=== PATIENT | male | born 1945 | race Caucasian/White ===

== ENCOUNTER 2017-10-02 19:57 | Inpatient (IN) | payer MEDICARE ==
--- NOTE | 2017-10-02 21:01 | ED ---
General Adult HPI - General Chief complaint: Altered Mental Status Stated complaint: Confusion Time Seen by Provider: 10/02/17 20:33 Source: patient, EMS, RN notes reviewed Mode of arrival: EMS Limitations: altered mental status - History of Present Illness Initial comments: Patient is a pleasant 72-year-old male presenting to the emergency Department with change in mental status. Patient is unclear where he is at or why he is here. Patient does admit that he feels somewhat confused. Patient denies any other complaints. No pain. Patient was seen earlier at [place] and evaluated. Chart was reviewed. There was concern for change in mental status. Patient had reported normal head CT and chest x-ray. It was also reported that labs and urinalysis were within normal limits. - Related Data Allergies Allergy/AdvReac Type Severity Reaction Status Date / Time No Known Allergies Allergy Verified 10/02/17 21:29 Review of Systems ROS Statement: Those systems with pertinent positive or pertinent negative responses have been documented in the HPI. ROS Other: All systems not noted in ROS Statement are negative. Constitutional: Denies: fever Eyes: Denies: eye pain ENT: Denies: ear pain Respiratory: Denies: cough Cardiovascular: Denies: chest pain Endocrine: Denies: fatigue Gastrointestinal: Denies: abdominal pain Genitourinary: Denies: urgency, dysuria, frequency Musculoskeletal: Denies: back pain Skin: Denies: rash Neurological: Reports: confusion. Denies: headache, weakness Past Medical History Past Medical History: No Reported History History of Any Multi-Drug Resistant Organisms: Unobtainable Past Surgical History: No Surgical Hx Reported Past Psychological History: Unable to Obtain Smoking Status: Current every day smoker Past Alcohol Use History: Unable to Obtain Past Drug Use History: Unable to Obtain General Exam Limitations: altered mental status General appearance: alert, in no apparent distress Head exam: Present: atraumatic Eye exam: Present: normal appearance, PERRL, EOMI. Absent: nystagmus ENT exam: Present: normal oropharynx Neck exam: Present: normal inspection Respiratory exam: Present: normal lung sounds bilaterally Cardiovascular Exam: Present: regular rate, normal rhythm GI/Abdominal exam: Present: distended (Suprapubic distention and firmness without tenderness) Extremities exam: Present: normal inspection Neurological exam: Present: alert Psychiatric exam: Present: normal affect, normal mood Skin exam: Present: rash (Erythematous rash bilateral inguinal region consistent with yeast infection) Course Vital Signs 10/02/17 10/02/17 10/02/17 20:04 20:11 21:29 Temperature 97.8 F 98.4 F 99.2 F Pulse Rate 69 66 70 Respiratory 18 16 20 Rate Blood Pressure 192/79 192/79 205/86 O2 Sat by Pulse 99 99 97 Oximetry - Reevaluation(s) Reevaluation #1: 10/02/17 22:02 Patient reevaluated. Suprapubic fullness resolved with Bhatt catheter. Patient has had approximately 1500 mL out at this time. Case was discussed in detail with Dr. dixon, who will admit for hospital call. Disposition Clinical Impression: Altered mental status, Urinary retention, Renal insufficiency Disposition: ADMITTED IP TO THIS HOSP Referrals: None,Stated [Primary Care Provider] - 1-2 days Decision Time: 22:03
--- NOTE | 2017-10-02 21:57 | XR ---
EXAMINATION TYPE: XR KUB DATE OF EXAM: 10/02/2017 COMPARISON: NONE HISTORY: Pain TECHNIQUE: Single supine KUB image of the abdomen is obtained FINDINGS: Small bowel demonstrates no evidence for dilatation or air fluid levels. Gas and fecal material is seen in non-distended colon. No convincing evidence for pneumoperitoneum. No unusual calcifications. The lung bases are clear. The osseous structures are intact. IMPRESSION: 1. Overall nonobstructive bowel gas pattern.
[2017-10-02] MEDS ORDERED: NALOXONE 0.4 MG/ML 1 ML VIAL IV PRN (22:05)
[2017-10-02] MEDS: SODIUM CHLORIDE 0.9% 1,000 ML IV SCH (23:02)
[2017-10-03 07:48] LABS: Basophils % (A) 0 %; Eosinophils # (A) 0.4 k/uL (0-0.7); Eosinophils % (A) 4 %; Lymphocytes # (A) 1.5 k/uL (1.0-4.8); Lymphocytes % (A) 16 %; MCH 28.7 pg (25.0-35.0); MCHC 31.9 g/dL (31.0-37.0); Mean Platelet Volume 7.2; Monocytes # (A) 0.6 k/uL (0-1.0); Monocytes % (A) 6 %; Neutrophils # (A) 7.2 k/uL (1.3-7.7); Neutrophils % (A) 73 %; Platelet Count 182 k/uL (150-450); RBC 4.89 m/uL (4.30-5.90); RDW 14.2 % (11.5-15.5); WBC 9.9 k/uL (3.8-10.6)
[2017-10-03] MEDS: SODIUM CHLORIDE 0.9% 1,000 ML IV SCH (07:52)
[2017-10-03 08:15] LABS: Calcium 8.8 mg/dL (8.4-10.2); Potassium 3.4 mmol/L (3.5-5.1)
[2017-10-03 14:16] VITALS: BMI 20.9
--- NOTE | 2017-10-03 16:44 | HP ---
HISTORY AND PHYSICAL DATE OF SERVICE: 10/03/17 PRESENT COMPLAINT: Confused. HISTORY OF PRESENTING COMPLAINT: This is a 72-year-old patient who was admitted from [facility]. The patient is hard of hearing, difficult to get much history. History is obtained from the nurse and other notes. Nurse did speak to patient's nephew. The patient apparently lives by himself, uses a cane to get about. The nephew brought him in as the patient was not able to take care of himself and apparently was not taking his medications. Basic workup at [place] labs including urinalysis was negative including CT scan of the brain. The patient is found to have urinary retention here and a Bhatt catheter was placed. The patient is tolerating his diet. Denies any pain. No fever was reported. Difficult to communicate with the patient. REVIEW OF SYSTEMS: Difficult to obtain. PAST MEDICAL HISTORY: Includes exposure to Agent Bee. The patient served in the [employer]. Gait has been more shuffling, unsteady. Increasing confusion per nephew. PAST SURGICAL HISTORY: Appendectomy, tonsillectomy. SOCIAL HISTORY: The patient lives by himself. Dirty dishes piled up in the sink. He served in the [employer] in [employer]. Smoking 1/2 a pack a day. Alcohol history unknown. FAMILY HISTORY: Father had Parkinson's disease. HOME MEDICATIONS: Not listed. ALLERGIES: Not known. PHYSICAL EXAMINATION: Vital signs on presentation, temperature 97.8, pulse 69, respiratory 18, blood pressure 19/79, repeat blood pressure today 126/72. Pulse ox 98% on room air. General appearance: Thin build, somewhat dishevelled. Eyes pupil's equal. Conjunctivae normal. HEENT external of nose and ears normal. Oral cavity normal. Neck JVD not raised. Mass not palpable. Respiratory effort normal. Lungs decreased breath sounds. Cardiovascular 1st and 2nd sounds normal. No edema. ABDOMEN: Soft, nontender. Liver and spleen not palpable. Bhatt catheter in place. Lymphatics: No lymph nose palpable in the neck and axilla. Psychiatry: Patient can answer some questions. Difficult to communicate. Neurological pupils equal. No facial asymmetry. Moving all 4 limbs. Musculoskeletal: Diffuse wasting of the muscles. INVESTIGATIONS: White count 9.9, sodium 149, potassium 3.4, BUN 37, creatinine 2.04. ASSESSMENT: 1. Acute renal failure, need to rule out a chronic component. 2. Hyponatremia, probably from free water deficit. 3. Hypokalemia. 4. Assess for dementia. 5. Acute urinary retention. Patient currently has a Bhatt catheter. 6. Chronic nicotine dependence patient is a smoker. PLAN: We will give patient IV fluids and recheck electrolytes in the morning. I will do a renal ultrasound. Will check patient's thyroid. service worker is involved. We will do a mini-mental status examination. Physical therapy is also seeing the patient. Patient will also check a B12 level. MMODL / IJN: [id number] /
[2017-10-03] MEDS: TAMSULOSIN 0.4 MG CAP.ER.24H PO SCH (17:49)
[2017-10-03] MEDS: LACTATED RINGERS 1,000 ML IV SCH (17:50)
[2017-10-03] MEDS: ENOXAPARIN 40 MG/0.4 ML SYRINGE SQ SCH (17:50)
[2017-10-03] MEDS: NICOTINE 14MG/24HR PATCH TRANSDERM SCH (17:50)
--- NOTE | 2017-10-03 18:46 | US ---
EXAMINATION TYPE: US kidneys/renal and bladder DATE OF EXAM: 10/03/2017 COMPARISON: NONE CLINICAL HISTORY: renal failure. FINDINGS: There is difficulty in visualizing the anatomy, due to overlying soft tissues. Right Kidney: 10.5 x 6.4 x 5.2 cm Left Kidney: 10.2 x 5.4 x 5.7 cm There is evidence of bilateral mild/moderate hydronephrosis. Further characterization can be provided with dedicated CT urogram, if clinically indicated. No focal right or left renal findings. The urinary bladder is collapsed around a Bhatt catheter. IMPRESSION: Bilateral hydronephrosis pattern.
[2017-10-04] MEDS: LACTATED RINGERS 1,000 ML IV SCH ×3 (02:22→20:45)
[2017-10-04 08:11] LABS: Albumin 3.3 g/dL (3.5-5.0); Calcium 8.8 mg/dL (8.4-10.2); Potassium 3.7 mmol/L (3.5-5.1); Total Bilirubin 0.9 mg/dL (0.2-1.3); Total Protein 5.7 g/dL (6.3-8.2)
[2017-10-04] MEDS: NICOTINE 14MG/24HR PATCH TRANSDERM SCH (08:27)
[2017-10-04] MEDS: ENOXAPARIN 40 MG/0.4 ML SYRINGE SQ SCH (08:27)
[2017-10-04] MEDS: TAMSULOSIN 0.4 MG CAP.ER.24H PO SCH (16:51)
--- NOTE | 2017-10-04 20:40 | PN ---
PROGRESS NOTE DATE OF SERVICE: 10/04/2017 PRESENTING COMPLAINT: Confused. INTERVAL HISTORY: This is a patient who was admitted with acute renal failure -- definitely appears to be an acute component -- and hypernatremia from free water deficit. Patient did poorly on the mini mental status exam, confirming that patient has underlying dementia. This morning patient's Bhatt catheter was discontinued and patient's post-void residual came back to about 900; and Bhatt catheter to be reinstated. Subsequently the patient has been tugging at the Bhatt and had some bleeding in the same. Otherwise patient has been tolerating a diet. One way to communicate with the patient is writing with him. REVIEW OF SYSTEMS: Difficult to obtain. CURRENT MEDICATIONS: Reviewed. They include Flomax. PHYSICAL EXAMINATION: Temperature 97.9, pulse 54, respiration 18, blood pressure 115/63, pulse ox 99% on room air. GENERAL APPEARANCE: Lying in bed, awake. EYES: Pupils equal. Conjunctivae normal. HEENT: External appearance of nose and ears normal. Oral cavity a bit dry. NECK: JVD not raised. Mass not palpable. RESPIRATORY: Effort normal. LUNGS: Decreased breath sounds. CARDIOVASCULAR: First and second sounds normal. No edema. ABDOMEN: Soft, non-tender. Liver and spleen not palpable. Bhatt catheter in place. DERMATOLOGICAL: Across the torso there are areas with irregular borders, scaly, slight erythema. INVESTIGATIONS: Sodium 146, potassium 3.7, BUN 29, creatinine 1.63. TSH normal. Abdominal ultrasound shows bilateral mild to moderate hydronephrosis. ASSESSMENT: 1. Acute renal failure component, probably from obstruction from prostate, with some improvement with hydration. 2. Urinary outflow obstruction, likely from benign prostatic hypertrophy. Patient has a high post-void residual. Will need a Bhatt catheter. Flomax was started yesterday. 3. Hypernatremia from free water deficit. 4. Moderate cognitive impairment. Patient did poorly on the mini mental status exam. 5. Chronic nicotine dependence. Patient is a cigarette smoker. 6. Possible acute delirium. Patient was slightly confused in the evening. This could be contributing from the Bhatt catheter. Also electrolyte abnormalities. 7. Bilateral hydronephrosis, probably from benign prostatic hypertrophy obstruction. PLAN: Will send off patient's UA and culture. Continue to hydrate the patient. For the patient's safety sake, will have a sitter placed and use delirium precautions. MMODL / IJN: [id number] /
[2017-10-04] MEDS: CLOTRIMAZOLE 1% CREAM 15 GM TUBE TOPICAL SCH (20:44)
[2017-10-05 01:11] LABS: Appearance,Urine Clear (Clear); Bilirubin,Urine Negative (Negative); Blood,Urine Large (Negative); Color,Urine Yellow; Glucose,Urine (UA) 3+ (Negative); Ketones,Urine Negative (Negative); Leukocyte Esterase,Urine Large (Negative); Mucus,Urine Rare /hpf; Nitrite,Urine Negative (Negative); Protein,Urine Trace (Negative); RBC,Urine >182 /hpf (0-5); Specific Gravity,Urine 1.011 (1.001-1.035); Urobilinogen,Urine <2.0 mg/dL (<2.0); WBC,Urine 29 /hpf (0-5)
[2017-10-05] MEDS: LACTATED RINGERS 1,000 ML IV SCH ×2 (07:06→19:08)
[2017-10-05 08:05] LABS: Calcium 8.5 mg/dL (8.4-10.2); Potassium 3.6 mmol/L (3.5-5.1)
[2017-10-05] MEDS: NICOTINE 14MG/24HR PATCH TRANSDERM SCH (08:06)
[2017-10-05] MEDS: ENOXAPARIN 40 MG/0.4 ML SYRINGE SQ SCH (08:06)
[2017-10-05] MEDS: CLOTRIMAZOLE 1% CREAM 15 GM TUBE TOPICAL SCH ×2 (08:10→19:17)
--- NOTE | 2017-10-05 09:31 | P.CON ---
Consult Note - . Consult date: 10/05/17 Assessment/Plan:: This consultation was performed per the request of Dr. Stanley regarding elongated thick deformed neglected nails of both feet. This patient is a 72-year-old white male who was admitted from [facility]. Patient is hard of hearing occult to get history from him. The history was obtained originally from the nurse and other notes. The nurse did speak to the patient's nephew. The patient apparently lives by himself, he uses a cane to get about. The nephew brought him in as the patient and reported that the patient was able to take care of him to self and apparently not taking his medications. Workup was performed at [facility] labs included a urinalysis which was negative computed tomography scan of the brain was found to have urinary retention and a Bhatt catheter was placed and the patient denies any pain reported Review of systems: Difficult to obtain Past medical history: Lids exposure to agent orange. The patient served in [employer] the patient's gait has been more shuffling and unsteady. There has been increasing in fusion reported by the patient's nephew. Past surgical history: Appendectomy and tonsillectomy or graft social history: The patient lives by himself and he served in the [employer] during the [place] conflict. The patient smokes a half a pack of cigarettes a day and alcohol history of bowel or graft family history: Father had Parkinson's disease or graft home medications: Not listed ALLERGIES: Not known Podiatric physical examination revealed very thick deformed elongated dystrophic neglected mycotic Denys involved nails involving the digits one through 5 bilaterally could not palpate good pedal pulses this state the dorsalis pedis and posterior tibial arteries were rated as quite weak. Capillary refill was less than 3 seconds to all digits of both feet The patient's skin with regard to color moisture temperature and texture was fairly within normal limits though and was dry and scaly. Weak pedal pulses though capillary refill was within normal limits Babinski and clonus signs were negative Range of motion ankle subtalar midtarsal and metatarsophalangeal joints are free and unrestricted Assessment: 1. Acute renal failure, need to rule out a chronic component 2. Hyponatremia, probably from free water deficit. 3. Hypokalemia line 4. Assessment for dementia 5. Acute urinary retention. The patient currently has a Bhatt catheter 6. Chronic nicotine dependence 7. Onychomycosis and neglected nails 1 through 5 bilateral feet This date I reduce the patient's nails 1 through 5 bilaterally burring was performed and a septic was applied Thank you for considering me in the care your patients
[2017-10-05] MEDS: TAMSULOSIN 0.4 MG CAP.ER.24H PO SCH (17:35)
--- NOTE | 2017-10-05 20:43 | PN ---
PROGRESS NOTE DATE OF SERVICE: 10/05/2017 PRESENTING COMPLAINT: Dementia. INTERVAL HISTORY: Patient admitted with acute renal failure, also found to have dementia and hyponatremia. The patient tolerating a diet. Lying in bed. REVIEW OF SYSTEMS: Difficult to do because of hard of hearing. CURRENT MEDICATIONS: Reviewed and include IV fluids. EXAMINATION: Temperature 98.1, pulse 66, respirations 16, blood pressure 133/59, pulse ox 96% on room air. GENERAL APPEARANCE: Lying in bed, comfortable. EYES: Pupils equal. Conjunctivae are normal. HEENT: External nose and ears normal. Oral cavity dry. NECK: JVD not raised. Mass not palpable. RESPIRATORY: Effort normal. LUNGS: Decreased breath sounds. CARDIOVASCULAR: First and second sounds normal. DERMATOLOGICAL: Evidence of scaly rash. INVESTIGATIONS: BUN 28, creatinine 1.26. ASSESSMENT: 1. Acute renal failure component, probably from obstruction from prostate with significant improvement with hydration. 2. Urinary outflow obstruction, likely from benign prostatic hypertrophy. The patient has a very high postvoid residual, will need a Bhatt catheter. 3. Hypernatremia from free water deficit. 4. Moderate cognitive impairment. The patient did poorly on mini-mental status exam. 5. Chronic nicotine dependence. Patient is a cigarette smoker. 6. Acute delirium, multifactorial, now doing better. 7. Bilateral hydronephrosis, probably from benign prostatic hypertrophy. 8. Acute urinary tract infection, possibly from Bhatt catheter. PLAN: Continue medication and treatment plan. Will give the patient a course of antibiotics, starting with ceftriaxone. Looking for placement. The patient continued to have a sitter currently for his safety, but overall getting better. MMODL / IJN: [id number] /
[2017-10-05] MEDS: cefTRIAXone IN SWFI 1,000 MG/10 ML SYRINGE IVP SCH (20:55)
[2017-10-06] MEDS ORDERED: LORazepam 2 MG/ML INJ IV PRN (03:23)
[2017-10-06] MEDS ORDERED: LORazepam 2 MG/ML INJ ONE (03:27)
[2017-10-06] MEDS: LACTATED RINGERS 1,000 ML IV SCH (07:01)
[2017-10-06 08:33] LABS: Basophils % (A) 0 %; Eosinophils # (A) 0.3 k/uL (0-0.7); Eosinophils % (A) 3 %; HCT 42.1 % (39.0-53.0); HGB 13.8 gm/dL (13.0-17.5); Lymphocytes # (A) 1.3 k/uL (1.0-4.8); Lymphocytes % (A) 17 %; MCH 29.3 pg (25.0-35.0); MCHC 32.8 g/dL (31.0-37.0); MCV 89.2 fL (80.0-100.0); Mean Platelet Volume 7.5; Monocytes # (A) 0.5 k/uL (0-1.0); Monocytes % (A) 6 %; Neutrophils # (A) 5.7 k/uL (1.3-7.7); Neutrophils % (A) 73 %; Platelet Count 165 k/uL (150-450); RBC 4.72 m/uL (4.30-5.90); RDW 13.8 % (11.5-15.5); WBC 7.9 k/uL (3.8-10.6)
[2017-10-06 08:53] LABS: Calcium 8.6 mg/dL (8.4-10.2); Potassium 3.3 mmol/L (3.5-5.1)
[2017-10-06] MEDS: CLOTRIMAZOLE 1% CREAM 15 GM TUBE TOPICAL SCH ×2 (09:51→21:05)
[2017-10-06] MEDS: NICOTINE 14MG/24HR PATCH TRANSDERM SCH (09:52)
[2017-10-06] MEDS: ENOXAPARIN 40 MG/0.4 ML SYRINGE SQ SCH ×2 (09:52→09:55)
[2017-10-06] MEDS ORDERED: Potassium Replacement Protocol 1 EACH MISC MISCELLANE PRN (14:51)
[2017-10-06] MEDS: POTASSIUM CHLORIDE ER 20 MEQ TAB.ER PO SCH ×2 (16:16→17:12)
[2017-10-06] MEDS: TAMSULOSIN 0.4 MG CAP.ER.24H PO SCH (18:12)
[2017-10-06] MEDS: cefTRIAXone IN SWFI 1,000 MG/10 ML SYRINGE IVP SCH (21:05)
--- NOTE | 2017-10-06 23:27 | PN ---
PROGRESS NOTE DATE OF SERVICE: 10/06/17. PRESENTING COMPLAINT: Dementia. INTERVAL HISTORY: Patient admitted with acute renal failure, also with dementia and hyponatremia. Because of urine retention, patient has a Bhatt catheter, now doing much better. Because of poor hearing, sometimes difficult to communicate. The patient has a sitter. REVIEW OF SYSTEMS: Difficult to ascertain. CURRENT MEDICATIONS: Include IV fluids. PHYSICAL EXAMINATION: Temperature 97.9, pulse 72, respiratory 18, blood pressure 140/65, pulse ox 99% on room air. General appearance: Lying in bed comfortable. Eyes pupils are equal. Conjunctivae normal. HEENT external appearance of nose and ears normal. Oral cavity normal. Neck JVD not raised. Mass not palpable. Respiratory effort normal. Lungs decreased breath sounds. Cardiovascular 1st and 2nd sounds normal. No edema. Dermatological: Evidence of skin rash improving. INVESTIGATIONS: White count 7.9, hemoglobin 13.8, potassium 3.3, BUN 22, creatinine 1.18. Urine culture negative. ASSESSMENT: 1. Acute renal failure from obstruction from prostate, with significant improvement with hydration. 2. Urinary outflow obstruction, likely from benign prostatic hypertrophy. The patient has a high post-void residual requiring Bhatt catheter. 3. Hyponatremia from free water deficit. 4. Moderate cognitive impairment. The patient did poorly on mini-mental state exam. 5. Chronic nicotine dependence, patient is a cigarette smoker. 6. Acute delirium multifactorial, much improved. 7. Bilateral hydronephrosis from benign prostatic hypertrophy. 8. Acute urinary tract infection secondary to Bhatt catheter. PLAN: Patient overall gait much improved. The nurse came in and talked to me. She is rather confident patient doing much better. Will give a trial with DC sitter. Also renal function is much improved. Patient's oral intake is better. Will DC the IV fluids. MMODL / IJN: [id number] /
[2017-10-07] MEDS: NICOTINE 14MG/24HR PATCH TRANSDERM SCH (08:13)
[2017-10-07] MEDS: ENOXAPARIN 40 MG/0.4 ML SYRINGE SQ SCH (08:14)
[2017-10-07 08:19] LABS: Calcium 9.1 mg/dL (8.4-10.2); Potassium 3.9 mmol/L (3.5-5.1)
[2017-10-07] MEDS: CLOTRIMAZOLE 1% CREAM 15 GM TUBE TOPICAL SCH ×2 (11:22→21:17)
--- NOTE | 2017-10-07 17:36 | PN ---
PROGRESS NOTE DATE OF SERVICE: 10/07/2017 PRESENTING COMPLAINT: Dementia. INTERVAL HISTORY: Patient presented with acute renal failure with dementia and hyponatremia. He has a Bhatt catheter because of urinary retention. Doing better. When I walk in the room, he says, "Chacho, Doctor. How are you doing?" He has been tolerating his diet. REVIEW OF SYSTEMS: Difficult to do because of hearing. CURRENT MEDICATIONS: Reviewed. They include IV ceftriaxone. PHYSICAL EXAMINATION: Temperature 98, pulse 64, respiration 18, blood pressure 165/71, pulse ox 99% on room air. GENERAL APPEARANCE: Lying in bed. Comfortable. EYES: Pupils equal. Conjunctivae normal. HEENT: External appearance of nose and ears normal. Oral cavity normal. NECK: JVD not raised. Mass not palpable. RESPIRATORY: Effort normal. LUNGS: Decreased breath sounds. CARDIOVASCULAR: First and second sounds normal. No edema. ABDOMEN: Soft, non-tender. Liver and spleen not palpable. DERMATOLOGICAL: Skin rash is improving. Bhatt catheter in place. INVESTIGATIONS: Potassium 3.9, BUN 26, creatinine 1.10. Urine cultures were negative. ASSESSMENT: 1. Acute renal failure from obstruction from prostate, with significant improvement. 2. Urine outflow obstruction, likely from benign prostatic hypertrophy. Patient has a high post-void residual requiring Bhatt catheter. 3. Hypernatremia from free water deficit, improved. 4. Moderate cognitive impairment. Patient did poorly on mini-mental status exam. 5. Chronic nicotine dependence. Patient is a cigarette smoker. 6. Acute delirium, multifactorial, improved. 7. Bilateral hydronephrosis from benign prostatic hypertrophy. 8. Acute urinary tract infection secondary to Bhatt catheter. PLAN: Will switch the patient from IV to p.o. antibiotic. Awaiting input from case management manager for discharge planning. Will repeat ultrasound to see if the hydronephrosis has improved. MMODL / IJN: [id number] /
[2017-10-07] MEDS: TAMSULOSIN 0.4 MG CAP.ER.24H PO SCH (17:55)
--- NOTE | 2017-10-07 19:14 | US ---
EXAMINATION TYPE: US kidneys/renal and bladder DATE OF EXAM: 10/07/2017 COMPARISON: 10/03/2017 CLINICAL HISTORY: f/ u hydronephrosis. Follow up hydronephrosis EXAM MEASUREMENTS: Right Kidney: 10.1 x 5.8 x 5.1 cm Left Kidney: 10.9 x 5.7 x 5.1 cm Right Kidney: visualized portions wnl, inferior pole limited by overlying bowel gas Left Kidney: visualized portions wnl, inferior pole limited by overlying bowel gas Bladder: not fully distended, feng catheter There is no evidence for hydronephrosis at this point in time. No nephrolithiasis is seen. No german s are identified. The urinary bladder is anechoic. Bilateral ureteral jets are seen. IMPRESSION: Negative retroperitoneal sonogram exam. No evidence of renal mass or obstruction. There is clearing o f bilateral hydronephrosis compared to last exam.
[2017-10-07] MEDS: CEPHALEXIN 500 MG CAP PO SCH (21:16)
[2017-10-08] MEDS: CLOTRIMAZOLE 1% CREAM 15 GM TUBE TOPICAL SCH ×2 (08:26→19:36)
[2017-10-08] MEDS: NICOTINE 14MG/24HR PATCH TRANSDERM SCH (08:26)
[2017-10-08] MEDS: ENOXAPARIN 40 MG/0.4 ML SYRINGE SQ SCH (08:26)
[2017-10-08] MEDS: CEPHALEXIN 500 MG CAP PO SCH ×3 (08:26→22:20)
[2017-10-08 09:09] LABS: Calcium 9.1 mg/dL (8.4-10.2)
[2017-10-08] MEDS: TAMSULOSIN 0.4 MG CAP.ER.24H PO SCH (16:41)
--- NOTE | 2017-10-08 22:54 | PN ---
PROGRESS NOTE DATE OF SERVICE: October 08, 2017. PRESENTING COMPLAINT: Dementia. INTERVAL HISTORY: Patient with acute renal failure, hyponatremia. Also has a Bhatt catheter because of urinary retention. I was informed that the patient's son who has not been in contact with the patient over the last over 15 years, initially was looking into guardianship, but now declined. shellfish bed worker will have to go back to the court to get guardianship. Otherwise, patient tolerating a diet, comfortable. REVIEW OF SYSTEMS: Difficult to obtain because of hard of hearing. CURRENT MEDICATIONS: Reviewed that include Keflex. PHYSICAL EXAMINATION: Temperature 97.8, pulse 82, respiratory rate 16. Blood pressure 162/74. Pulse ox 99% on room air. General appearance: Lying in bed, comfortable. EYES: Pupils equal. Conjunctivae normal. HEENT: External appearance of nose and ears normal. Oral cavity normal. Neck: JVD not raised. Mass not palpable. Respiratory effort normal. Lungs: Decreased breath sounds. Cardiovascular: 1st and 2nd sounds normal. No edema. ABDOMEN: Soft, nontender. Liver and spleen not palpable. Dermatological: Skin rash much improved. INVESTIGATIONS: Potassium 4, BUN 26, creatinine 1.12. Ultrasound of the abdomen showing bilateral hydronephrosis, much improved. ASSESSMENT: 1. Acute renal failure from obstruction from prostate with the resolution. 2. Urine outflow obstruction, likely from benign prostatic hypertrophy with a high post-void residual. Patient has a Bhatt catheter. 3. Hypernatremia from free water deficit, improved. 4. Moderate cognitive impairment. The patient did poorly on mini-mental state exam. 5. Chronic nicotine dependence, patient is a cigarette smoker. 6. Acute delirium multifactorial, improved. 7. Bilateral hydronephrosis from benign prostatic hypertrophy, now improved with a Bhatt catheter. 8. Acute urinary tract infection secondary to Bhatt catheter. 9. Awaiting guardianship. PLAN: Continue current medication and treatment plan. We will keep the patient on oral antibiotic. Awaiting a court-appointed guardian. The patient's nephew was visiting today. MMODL / IJN: [id number] /
[2017-10-09 08:28] LABS: Calcium 8.6 mg/dL (8.4-10.2)
[2017-10-09] MEDS: CEPHALEXIN 500 MG CAP PO SCH ×3 (08:34→22:30)
[2017-10-09] MEDS: NICOTINE 14MG/24HR PATCH TRANSDERM SCH (08:34)
[2017-10-09] MEDS: ENOXAPARIN 40 MG/0.4 ML SYRINGE SQ SCH (08:34)
[2017-10-09] MEDS: CLOTRIMAZOLE 1% CREAM 15 GM TUBE TOPICAL SCH ×2 (08:35→20:23)
[2017-10-09] MEDS: TAMSULOSIN 0.4 MG CAP.ER.24H PO SCH (17:12)
--- NOTE | 2017-10-09 18:49 | PN ---
PROGRESS NOTE DATE OF SERVICE: 10/09/2017. PRESENTING COMPLAINT: Dementia. INTERVAL HISTORY: This patient presented with acute renal failure, hyponatremia, urinary retention, UTI. Overall doing much better. Tolerating diet. Awaiting guardianship. REVIEW OF SYSTEMS: Difficult to obtain because of hard of hearing. PHYSICAL EXAMINATION: Temperature 97.2, pulse 90, respiration 18, blood pressure 111/57, pulse ox 93% on room air. GENERAL APPEARANCE: Sitting in bed, comfortable. EYES: Pupils equal. Conjunctivae normal. HEENT: External appearance of nose and ears normal. Oral cavity normal. NECK: JVD not raised. Mass not palpable. RESPIRATORY: Effort normal. LUNGS: Decreased breath sounds. CARDIOVASCULAR: First and second sounds normal. No edema. ABDOMEN: Soft, non-tender. Liver and spleen not palpable. DERMATOLOGICAL: Skin rash greatly improved. INVESTIGATIONS: BUN 28, creatinine 1.17. ASSESSMENT: 1. Acute renal failure from obstruction from benign prostatic hypertrophy with resolution. 2. Urine outflow obstruction, likely from benign prostatic hypertrophy, with high post- void residual. Patient has a Bhatt catheter. 3. Hypernatremia from free water deficit. 4. Moderate cognitive impairment. Patient did poorly on mini-mental status exam. 5. Chronic nicotine dependence. Patient is a cigarette smoker. 6. Acute delirium, multifactorial, improved. 7. Bilateral hydronephrosis from benign prostatic hypertrophy, now improved with a repeat ultrasound. 8. Acute urinary tract infection secondary to Bhatt catheter. 9. Awaiting guardianship. PLAN: Continue current medication and treatment plan. Will complete a course of antibiotic. MMODL / IJN: [id number] /
[2017-10-10 08:02] LABS: Calcium 8.6 mg/dL (8.4-10.2); Potassium 4.2 mmol/L (3.5-5.1)
[2017-10-10] MEDS: CEPHALEXIN 500 MG CAP PO SCH ×3 (08:43→21:46)
[2017-10-10] MEDS: ENOXAPARIN 40 MG/0.4 ML SYRINGE SQ SCH (08:43)
[2017-10-10] MEDS: NICOTINE 14MG/24HR PATCH TRANSDERM SCH (08:43)
[2017-10-10] MEDS: CLOTRIMAZOLE 1% CREAM 15 GM TUBE TOPICAL SCH ×2 (08:44→21:46)
[2017-10-10] MEDS: TAMSULOSIN 0.4 MG CAP.ER.24H PO SCH (16:54)
[2017-10-10] MEDS ORDERED: TAMSULOSIN 0.4 MG CAP.ER.24H PO ONE (20:30)
--- NOTE | 2017-10-10 21:20 | PN ---
PROGRESS NOTE DATE OF SERVICE: 10/10/2017 PRESENTING COMPLAINT: Dementia. INTERVAL HISTORY: This patient is being treated for acute renal failure that recovered, hyponatremia, improved; urinary retention for which patient has a Bhatt catheter, UTI and tinea corporis. The patient does have a court hearing for guardianship tomorrow. Patient is very hard of hearing. REVIEW OF SYSTEMS: Difficult to do because of hard of hearing. CURRENT MEDICATIONS: Reviewed that include: 1. Lotrimin cream. 2. Flomax. EXAMINATION: Temperature 98.1, pulse 68, respirations 18, blood pressure 156/70, pulse ox 100% on room air. GENERAL APPEARANCE: Lying in bed, comfortable. EYES: Pupils equal. Conjunctivae normal. HEENT: External appearance of nose and ears normal. Oral cavity normal. NECK: JVD unable to assess. Mass not palpable. RESPIRATORY: Effort normal. LUNGS: Decreased breath sounds. CARDIOVASCULAR: First and second sounds normal. No edema. ABDOMEN: Soft, nontender. Liver, spleen not palpable. Bhatt catheter in place. DERMATOLOGICAL: Skin rash is improving, especially in the groin and the suprapubic area. BUN 30, creatinine 1.10. ASSESSMENT: 1. Acute renal failure from obstruction from benign prostatic hypertrophy with correction. 2. Urine outflow obstruction from benign prostatic hypertrophy with high postvoid residual. Patient has a Bhatt catheter. 3. Hypernatremia from free water deficit, improved. 4. Moderate cognitive impairment. The patient did poorly on a mini mental state exam. 5. Chronic nicotine dependence. Patient is a cigarette smoker. 6. Acute delirium; multifactorial, improved. 7. Bilateral hydronephrosis from benign prostatic hypertrophy, now improved with repeat ultrasound. 8. Acute urinary tract infection secondary to Bhatt catheter. 9. Awaiting guardianship. 10.Extensive tenia corporis, improving. PLAN: Continue medication and treatment plan. Spoke to social media strategist, taking him into court tomorrow morning to obtain guardianship. MMODL / IJN: [id number] /
[2017-10-11 06:54] VITALS: BP 147/69; PULSE 59; RESP 16; TEMP 97.8
[2017-10-11] MEDS: NICOTINE 14MG/24HR PATCH TRANSDERM SCH (08:42)
[2017-10-11] MEDS: CEPHALEXIN 500 MG CAP PO SCH (08:42)
[2017-10-11] MEDS: CLOTRIMAZOLE 1% CREAM 15 GM TUBE TOPICAL SCH (08:43)
[2017-10-11] MEDS: ENOXAPARIN 40 MG/0.4 ML SYRINGE SQ SCH (08:43)
--- NOTE | 2017-10-11 11:17 | DS ---
DISCHARGE SUMMARY DATE OF ADMISSION: 10/02/2017 DATE OF DISCHARGE: 10/11/2017 FINAL DIAGNOSES: 1. Acute renal failure from obstructive renal failure from benign prostatic hypertrophy, resolved. 2. Urine outflow obstruction from benign prostatic hypertrophy with high post-void residual. Patient had a Bhatt catheter placed. 3. Hypernatremia from free water deficit, resolved. 4. Moderate cognitive impairment, patient did poorly on the mini-mental state exam. 5. Chronic nicotine dependence, patient is a cigarette smoker. 6. Acute delirium, multifactorial, resolved. 7. Bilateral hydronephrosis from obstructive benign prostatic hypertrophy, resolved on repeat ultrasound. 8. Acute urinary tract infection secondary to Bhatt catheter, completed course of antibiotic. 9. Awaiting court-appointed guardianship. 10.Extensive tenia cruris and corporis improving with antifungal. HOSPITAL COURSE: This patient was brought in by his nephew, unkempt, not doing well, not able to manage on his own. Patient was in renal failure with the creatinine up to 2.04. Finally, the creatinine did come down to 1.10. Patient had bilateral hydronephrosis that also resolved. This morning a trial of Bhatt catheter is being done to be discontinued to see if he can do without it. Dose of Flomax was increased. Patient also completed a course of antibiotics for the same. The patient is very hard of hearing, can communicate with writing to him. A court-appointed guardian is being done today, awaiting finalization of that. DISCHARGE MEDICATIONS: 1. Lotrimin cream topical b.i.d. for 42 applications, that is 21 days. 2. Nicotine 14 mg patch. 3. Flomax 0.8 mg before supper. DISPOSITION: [facility]. Follow up with Dr. Saha. ON EXAMINATION: LUNGS: Fair entry. CARDIOVASCULAR: First and second sounds normal. Patient's skin lesions are improving with the topical Lotrimin cream. MMODL / IJN: [id number] /
[2017-10-11] MEDS ORDERED: TAMSULOSIN 0.4 MG CAP.ER.24H PO SCH (18:30)
== END 2017-10-11 15:08 | DRG 683 ==
LOC: EC 19:57 → 5MS5E 22:05
PROVIDERS: ADMIT Hospitalist; ATTEND Hospitalist
DX: N17.9 Acute kidney failure, unspecified (principal); E87.0 Hyperosmolality and hypernatremia; T83.511A Infection and inflammatory reaction due to indwelling urethral catheter, initial encounter; N39.0 Urinary tract infection, site not specified; F05 Delirium due to known physiological condition; N13.8 Other obstructive and reflux uropathy; N13.30 Unspecified hydronephrosis; F17.210 Nicotine dependence, cigarettes, uncomplicated; E87.6 Hypokalemia; B35.1 Tinea unguium; B35.4 Tinea corporis; F03.90 Unspecified dementia, unspecified severity, without behavioral disturbance, psychotic disturbance, mood disturbance, and anxiety; H91.90 Unspecified hearing loss, unspecified ear; N40.1 Benign prostatic hyperplasia with lower urinary tract symptoms; Y84.6 Urinary catheterization as the cause of abnormal reaction of the patient, or of later complication, without mention of misadventure at the time of the procedure; Z82.0 Family history of epilepsy and other diseases of the nervous system; Z77.098 Contact with and (suspected) exposure to other hazardous, chiefly nonmedicinal, chemicals; Z60.2 Problems related to living alone; R26.81 Unsteadiness on feet
CPT/HCPCS: 51798; 74018; 76770; 80048; 80053; 81001; 82607; 84443; 85025; 87086; 99285

== ENCOUNTER 2017-10-13 12:11 | Emergency (ER) | payer MEDICARE ==
[2017-10-13 12:22] VITALS: RESP 16
--- NOTE | 2017-10-13 12:42 | ED ---
General Adult HPI - General Chief complaint: Urogenital Stated complaint: Urinary retention Time Seen by Provider: 10/13/17 12:24 Source: EMS, RN notes reviewed Mode of arrival: EMS Limitations: altered mental status - History of Present Illness Initial comments: Patient 72-year-old male with significant past medical history for dementia, presenting to the emergency room today from [facility] for needing a new Bhatt catheter. Patient reportedly pulled out his Bhatt catheter leg last night or early this morning. Patient does admit that he has to go to the bathroom. Patient has a history of urinary retention. Patient denies any other complaints. Patient denies any recent fever, chills, shortness of breath, chest pain, back pain, abdominal pain, nausea or vomiting, numbness or tingling, headaches or visual changes, or any other complaints. - Related Data Previous Rx's Medication Instructions Recorded Clotrimazole Cream [Lotrimin Cream] 1 applic TOPICAL BID #42 applic 10/11/17 Nicotine 14Mg/24Hr Patch [Habitrol] 1 patch TRANSDERM DAILY #30 patch 10/11/17 Allergies Allergy/AdvReac Type Severity Reaction Status Date / Time No Known Allergies Allergy Verified 10/13/17 12:21 Review of Systems ROS Statement: Those systems with pertinent positive or pertinent negative responses have been documented in the HPI. ROS Other: All systems not noted in ROS Statement are negative. Past Medical History Past Medical History: No Reported History Additional Past Medical History / Comment(s): Pt and nephStephen herman states pt has not been to a doctor for years. Pt is unsteady when first up at times. He has had decreasing memory and occasional confusion over the past 2-3 months and his gait has become shuffling. He is a and served in [employer]. NephStephen herman confirms pt probable had agent orange exposure. History of Any Multi-Drug Resistant Organisms: None Reported Past Surgical History: Appendectomy, Tonsillectomy Past Anesthesia/Blood Transfusion Reactions: No Reported Reaction Past Psychological History: No Psychological Hx Reported Smoking Status: Current every day smoker - Past Family History Father Family Medical History: Musculoskeletal Disorder, Neurologic Disorder Additional Family Medical History / Comment(s): Father had parkinson's. Mother Family Medical History: Cancer Additional Family Medical History / Comment(s): Unknown type of cancer. General Exam - General Exam Comments Initial Comments: General: The patient is awake and alert, in no distress, and does not appear acutely ill. Eye: Pupils are equal, round and reactive to light, extra-ocular movements are intact. No nystagmus. There is normal conjunctiva bilaterally. Ears, nose, mouth and throat: There are moist mucous membranes and no oral lesions. Neck: The neck is supple, there is no tenderness or JVD. Gastrointestinal: Lower abdomen firm on palpation. No rebound tenderness. No guarding. No CVA tenderness. Musculoskeletal: Normal ROM, no tenderness. Strength 5/5. Sensation intact. . Neurological: A&O x 3. CN II-XII intact, There are no obvious motor or sensory deficits. Coordination appears grossly intact. Speech is normal. Skin: Skin is warm and dry and no rashes or lesions are noted. Psychiatric: Cooperative, appropriate mood & affect, normal judgment. Limitations: altered mental status Course Vital Signs 10/13/17 12:18 Temperature 97.7 F Pulse Rate 80 Respiratory 16 Rate Blood Pressure 179/79 O2 Sat by Pulse 98 Oximetry Medical Decision Making - Medical Decision Making Patient reexamined at this time shows signs of distress. He does admit to feeling better. Abdomen is soft on repeat exam. Patient had greater than 1200 mL out with Bhatt catheter. It was then cleansed by nursing staff has been "once again. She is doing well at this time. His urinalysis reviewed and does show large amount blood and white cells. Blood may be due to infection or from the trauma . Patient removing Bhatt catheter. It will be recommended that patient has a repeat urinalysis to look for blood. At this time patient will be started on antibiotics. Patient's vitals are stable there is no fever. His abdomen soft on palpation he has no complaints. Patient will be discharged back to [facility]. - Lab Data Lab Results 10/13/17 Range/Units 12:45 Urine Color Red Urine Appearance Cloudy (Clear) Urine pH 6.5 (5.0-8.0) Ur Specific [place] 1.015 (1.001-1.035) Urine Protein 2+ H (Negative) Urine Glucose (UA) 2+ H (Negative) Urine Ketones Negative (Negative) Urine Blood Large H (Negative) Urine Nitrite Negative (Negative) Urine Bilirubin Negative (Negative) Urine Urobilinogen <2.0 (<2.0) mg/dL Ur Leukocyte Esterase Trace H (Negative) Urine RBC >182 H (0-5) /hpf Urine WBC >182 H (0-5) /hpf Urine Bacteria Rare H (None) /hpf Urine Mucus Rare H (None) /hpf Disposition Clinical Impression: Bhatt catheter problem, UTI (urinary tract infection), Hematuria Disposition: HOME SELF-CARE Condition: Good Instructions: Urinary Tract Infection in Men (ED) Additional Instructions: Please have repeat urinalysis over the next week to make sure that infection and blood in the urine has cleared. Please use antibiotic as prescribed. Please return to emergency room if any symptoms increase worsen or for any other concerns. Is patient prescribed a controlled substance at d/c from ED?: No Referrals: Andres Mane DO [Primary Care Provider] - 1-2 days Time of Disposition: 13:15
[2017-10-13 13:01] LABS: Appearance,Urine Cloudy (Clear); Bacteria,Urine Rare /hpf; Bilirubin,Urine Negative (Negative); Blood,Urine Large (Negative); Color,Urine Red; Glucose,Urine (UA) 2+ (Negative); Ketones,Urine Negative (Negative); Leukocyte Esterase,Urine Trace (Negative); Mucus,Urine Rare /hpf; Nitrite,Urine Negative (Negative); PH, Urine 6.5 (5.0-8.0); Protein,Urine 2+ (Negative); RBC,Urine >182 /hpf (0-5); Specific Gravity,Urine 1.015 (1.001-1.035); Urobilinogen,Urine <2.0 mg/dL (<2.0); WBC,Urine >182 /hpf (0-5)
[2017-10-13 15:00] VITALS: BP 170/78; PULSE 81; TEMP 97.8
== END 2017-10-13 14:58 | disposition home or self-care (01) ==
LOC: EC 12:11 → EEVIPCON 12:11 → EC 14:58
DX: T83.9XXA Unspecified complication of genitourinary prosthetic device, implant and graft, initial encounter (principal); N39.0 Urinary tract infection, site not specified; F17.200 Nicotine dependence, unspecified, uncomplicated; Y84.6 Urinary catheterization as the cause of abnormal reaction of the patient, or of later complication, without mention of misadventure at the time of the procedure
CPT/HCPCS: 51702; 81001; 87086; 99283

== ENCOUNTER 2017-10-31 19:50 | Inpatient (IN) | payer MEDICARE ==
[2017-10-31] MEDS ORDERED: SODIUM CHLORIDE 0.9% 1,000 ML IV STA ×2 (20:14)
[2017-10-31 20:37] LABS: Basophils % (A) 0 %; Eosinophils % (A) 0 %; HCT 41.3 % (39.0-53.0); HGB 13.8 gm/dL (13.0-17.5); Lymphocytes # (A) 0.7 k/uL (1.0-4.8); Lymphocytes % (A) 3 %; MCH 30.7 pg (25.0-35.0); MCHC 33.4 g/dL (31.0-37.0); Mean Platelet Volume 6.9; Monocytes # (A) 0.9 k/uL (0-1.0); Monocytes % (A) 4 %; Neutrophils # (A) 19.3 k/uL (1.3-7.7); Neutrophils % (A) 92 %; Platelet Count 228 k/uL (150-450); RBC 4.48 m/uL (4.30-5.90); RBC,Urine >182 /hpf (0-5); RDW 15.2 % (11.5-15.5); WBC,Urine >182 /hpf (0-5)
[2017-10-31 20:40] LABS: Appearance,Urine Bloody (Clear); Color,Urine Red
[2017-10-31 20:45] LABS: INR 1.3 (<1.2); Partial Thromboplastin Time 26.4 sec (22.0-30.0); Prothrombin Time 11.9 sec (9.0-12.0)
[2017-10-31 20:48] LABS: Albumin 3.1 g/dL (3.5-5.0); Calcium 8.9 mg/dL (8.4-10.2); Magnesium 2.3 mg/dL (1.6-2.3); Phosphorus 5.8 mg/dL (2.5-4.5); Potassium 5.1 mmol/L (3.5-5.1); Total Bilirubin 0.5 mg/dL (0.2-1.3); Total Protein 5.6 g/dL (6.3-8.2)
--- NOTE | 2017-10-31 20:49 | ED ---
General Adult HPI - General Chief complaint: Recheck/Abnormal Lab/Rx Stated complaint: Abnormal Labs Time Seen by Provider: 10/31/17 19:53 Source: EMS, RN notes reviewed, old records reviewed Mode of arrival: EMS Limitations: no limitations - History of Present Illness Initial comments: This is a 72-year-old male the ER for evaluation. Patient was essay for evaluation regarding abnormal outpatient lab test. Patient comes in from [facility] [place] facility is a poor strain. History obtained from EMS and patient's chart. Patient is had significantly abnormal labs including elevated BUN/ creatinine. Patient himself: Without complaint - Related Data Home Medications Medication Instructions Recorded Confirmed Tamsulosin HCl [Flomax] 0.8 mg PO HS 10/31/17 10/31/17 Allergies Allergy/AdvReac Type Severity Reaction Status Date / Time No Known Allergies Allergy Verified 10/31/17 20:21 Review of Systems ROS Statement: Those systems with pertinent positive or pertinent negative responses have been documented in the HPI. ROS Other: All systems not noted in ROS Statement are negative. Past Medical History Past Medical History: No Reported History Additional Past Medical History / Comment(s): Pt and nephStephen herman states pt has not been to a doctor for years. Pt is unsteady when first up at times. He has had decreasing memory and occasional confusion over the past 2-3 months and his gait has become shuffling. He is a and served in [place]. NephStephen herman confirms pt probable had agent orange exposure. History of Any Multi-Drug Resistant Organisms: None Reported Past Surgical History: Appendectomy, Tonsillectomy Past Anesthesia/Blood Transfusion Reactions: No Reported Reaction Past Psychological History: No Psychological Hx Reported Smoking Status: Current every day smoker Past Alcohol Use History: None Reported Past Drug Use History: None Reported - Past Family History Father Family Medical History: Musculoskeletal Disorder, Neurologic Disorder Additional Family Medical History / Comment(s): Father had parkinson's. Mother Family Medical History: Cancer Additional Family Medical History / Comment(s): Unknown type of cancer. General Exam Limitations: no limitations General appearance: alert, in no apparent distress Head exam: Present: atraumatic, normocephalic, normal inspection Eye exam: Present: normal appearance, PERRL, EOMI. Absent: scleral icterus, conjunctival injection, periorbital swelling ENT exam: Present: normal exam, mucous membranes moist Neck exam: Present: normal inspection. Absent: tenderness, meningismus, lymphadenopathy Respiratory exam: Present: normal lung sounds bilaterally. Absent: respiratory distress, wheezes, rales, rhonchi, stridor Cardiovascular Exam: Present: regular rate, normal rhythm, normal heart sounds. Absent: systolic murmur, diastolic murmur, rubs, gallop, clicks GI/Abdominal exam: Present: soft, normal bowel sounds. Absent: distended, tenderness, guarding, rebound, rigid Extremities exam: Present: normal inspection, full ROM, normal capillary refill. Absent: tenderness, pedal edema, joint swelling, calf tenderness Back exam: Present: normal inspection Neurological exam: Present: alert, oriented X3, CN II-XII intact Psychiatric exam: Present: normal affect, normal mood Skin exam: Present: warm, dry, intact, normal color. Absent: rash Course Vital Signs 10/31/17 10/31/17 19:54 20:48 Temperature 98.9 F Pulse Rate 71 72 Respiratory 18 18 Rate Blood Pressure 169/73 168/71 O2 Sat by Pulse 99 97 Oximetry - Reevaluation(s) Reevaluation #1: 10/31/17 20:55 Earlier labwork is reviewed EKG Findings - EKG Comments: EKG Findings:: EKG shows sinus rhythm rate of 69, WV 128, QRS 86, QTc 420 Medical Decision Making - Medical Decision Making 69 female the ER for evaluation positive urinary tract infections positive renal failure severe dehydration, mild for mental state. Patient to be admitted for nephrology evaluation, IV antibiotics - Lab Data Result diagrams: 10/31/17 20:03 10/31/17 20:03 Lab Results 10/31/17 10/31/17 10/31/17 Range/Units 20:03 20:03 20:03 WBC 21.0 H (3.8-10.6) k/uL RBC 4.48 (4.30-5.90) m/uL Hgb 13.8 (13.0-17.5) gm/dL Hct 41.3 (39.0-53.0) % MCV 92.0 (80.0-100.0) fL MCH 30.7 (25.0-35.0) pg MCHC 33.4 (31.0-37.0) g/dL RDW 15.2 (11.5-15.5) % Plt Count 228 (150-450) k/uL Neutrophils % 92 % Lymphocytes % 3 % Monocytes % 4 % Eosinophils % 0 % Basophils % 0 % Neutrophils # 19.3 H (1.3-7.7) k/uL Lymphocytes # 0.7 L (1.0-4.8) k/uL Monocytes # 0.9 (0-1.0) k/uL Eosinophils # 0.0 (0-0.7) k/uL Basophils # 0.0 (0-0.2) k/uL PT (9.0-12.0) sec INR (<1.2) APTT (22.0-30.0) sec Sodium 139 (137-145) mmol/L Potassium 5.1 (3.5-5.1) mmol/L Chloride 101 (98-107) mmol/L Carbon Dioxide 23 (22-30) mmol/L Anion Gap 15 mmol/L BUN 92 H* (9-20) mg/dL Creatinine 6.10 H* (0.66-1.25) mg/dL Est GFR (CKD-EPI)AfAm 10 (>60 ml/min/1.73 sqM) Est GFR (CKD-EPI)NonAf 8 (>60 ml/min/1.73 sqM) Glucose 223 H (74-99) mg/dL Calcium 8.9 (8.4-10.2) mg/dL Phosphorus 5.8 H (2.5-4.5) mg/dL Magnesium 2.3 (1.6-2.3) mg/dL Total Bilirubin 0.5 (0.2-1.3) mg/dL AST 27 (17-59) U/L ALT 31 (21-72) U/L Alkaline Phosphatase 142 H (38-126) U/L Total Creatine Kinase 420 H (55-170) U/L Total Protein 5.6 L (6.3-8.2) g/dL Albumin 3.1 L (3.5-5.0) g/dL Urine Color Urine Appearance (Clear) Urine RBC (0-5) /hpf Urine WBC (0-5) /hpf 18 10/31/17 Range/Units 20:03 20:03 WBC (3.8-10.6) k/uL RBC (4.30-5.90) m/uL Hgb (13.0-17.5) gm/dL Hct (39.0-53.0) % MCV (80.0-100.0) fL MCH (25.0-35.0) pg MCHC (31.0-37.0) g/dL RDW (11.5-15.5) % Plt Count (150-450) k/uL Neutrophils % % Lymphocytes % % Monocytes % % Eosinophils % % Basophils % % Neutrophils # (1.3-7.7) k/uL Lymphocytes # (1.0-4.8) k/uL Monocytes # (0-1.0) k/uL Eosinophils # (0-0.7) k/uL Basophils # (0-0.2) k/uL PT 11.9 (9.0-12.0) sec INR 1.3 H (<1.2) APTT 26.4 (22.0-30.0) sec Sodium (137-145) mmol/L Potassium (3.5-5.1) mmol/L Chloride (98-107) mmol/L Carbon Dioxide (22-30) mmol/L Anion Gap mmol/L BUN (9-20) mg/dL Creatinine (0.66-1.25) mg/dL Est GFR (CKD-EPI)AfAm (>60 ml/min/1.73 sqM) Est GFR (CKD-EPI)NonAf (>60 ml/min/1.73 sqM) Glucose (74-99) mg/dL Calcium (8.4-10.2) mg/dL Phosphorus (2.5-4.5) mg/dL Magnesium (1.6-2.3) mg/dL Total Bilirubin (0.2-1.3) mg/dL AST (17-59) U/L ALT (21-72) U/L Alkaline Phosphatase (38-126) U/L Total Creatine Kinase (55-170) U/L Total Protein (6.3-8.2) g/dL Albumin (3.5-5.0) g/dL Urine Color Red Urine Appearance Bloody (Clear) Urine RBC >182 H (0-5) /hpf Urine WBC >182 H (0-5) /hpf Disposition Clinical Impression: UTI (urinary tract infection), Renal insufficiency, Hematuria Disposition: ADMITTED IP TO THIS HOSP Condition: Fair Is patient prescribed a controlled substance at d/c from ED?: No Referrals: Andres Mane DO [Primary Care Provider] - 1-2 days
[2017-10-31] MEDS ORDERED: cefTRIAXone 2,000 MG in SODIUM CHLORIDE 0.9% 100 ML IVPB STA (21:11)
[2017-10-31] MEDS ORDERED: SODIUM CHLORIDE 0.9% 500 ML IV STA (21:11)
[2017-10-31] MEDS ORDERED: cefTRIAXone IN SWFI 2,000 MG/20 ML SYRINGE IVP STA (21:16)
[2017-10-31 21:20] LABS: Creatine Kinase MB 8.4 ng/mL (0.0-2.4); Troponin I 0.052 ng/mL (0.000-0.034)
[2017-11-01] MEDS: cefTRIAXone IN SWFI 1,000 MG/10 ML SYRINGE IVP SCH (08:37)
[2017-11-01] MEDS ORDERED: ENOXAPARIN 40 MG/0.4 ML SYRINGE SQ SCH (09:00)
--- NOTE | 2017-11-01 11:18 | P.NPCON ---
History of Present Illness - Reason for Consult acute renal failure - History of Present Illness Reason for consultation: Acute kidney injury History of present illness: Patient is a 72-year-old male seen in consultation for acute kidney injury. Patient had blood work done as an outpatient was sent to the hospital due to acute kidney injury and elevated BUN. Patient's creatinine on 10/29/2017 was 3.28 and was up to 7.65 yesterday. Patient did receive 1 L of IV fluids and was started on normal saline at 100 mL an hour. Creatinine did come down to 6.1 as of last night. He has chronic urinary retention and has a Bhatt catheter in place. According to the nurse he did report is Bhatt catheter a day prior to this hospital admission. His creatinine in September 2017 was as low as 1.1. No other records available prior to September 2017. Patient's currently resting in bed. He is not a reliable historian. His renal ultrasound from last month was benign. I don't see any nephrotoxins and his home medications. The only medication listed is Flomax. His blood pressures have been in the systolic 140s to 160s. No evidence of hypotension. He is nonoliguric. Vital signs are stable. General: The patient appeared well nourished and normally developed. HEENT: Head exam is unremarkable. Neck is without jugular venous distension. LUNGS: Lungs are clear to auscultation and percussion. Breath sounds decreased. HEART: Rate and Rhythm are regular. First and second heart sounds normal. No murmurs, rubs or gallops. ABDOMEN: Abdominal exam reveals normal bowel sounds. Non-tender and non- distended. No evidence of peritonitis. EXTREMITITES: No clubbing, cyanosis, or edema. Past Medical History Past Medical History: No Reported History, Dementia, Prostate Disorder, Renal Disease Additional Past Medical History / Comment(s): Pt and nephStephen herman states pt has not been to a doctor for years. Pt is unsteady when first up at times. He has had decreasing memory and occasional confusion over the past 2-3 months and his gait has become shuffling. He is a and served in [place]. NephStephen herman confirms pt probable had agent orange exposure. History of Any Multi-Drug Resistant Organisms: None Reported Past Surgical History: Appendectomy, Tonsillectomy Past Anesthesia/Blood Transfusion Reactions: No Reported Reaction Past Psychological History: Anxiety Additional Psychological History / Comment(s): Pt resides in his own home. He now has a shuffling gait and is unsteady at times. He has been forgetting to pay his bills per his nephew. Dirty dishes piled up in sink. He uses no assistive device. 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 He served in [employer] in [employer] and probably had agent orange exposure. Smoking Status: Current every day smoker Past Alcohol Use History: None Reported Additional Past Alcohol Use History / Comment(s): Pt smokes 1/2 ppd. Past Drug Use History: None Reported - Past Family History Father Family Medical History: Musculoskeletal Disorder, Neurologic Disorder Additional Family Medical History / Comment(s): Father had parkinson's. Mother Family Medical History: Cancer Additional Family Medical History / Comment(s): Unknown type of cancer. Medications and Allergies Home Medications Medication Instructions Recorded Confirmed Type Tamsulosin HCl [Flomax] 0.8 mg PO HS 10/31/17 10/31/17 History Allergies Allergy/AdvReac Type Severity Reaction Status Date / Time No Known Allergies Allergy Verified 10/31/17 20:21 Physical Exam Vitals: Vital Signs Temp Pulse Pulse Resp BP BP Pulse Ox 11/01/17 07:24 99 11/01/17 06:00 97.0 F L 67 16 149/71 99 10/31/17 23:00 98.4 F 77 16 169/71 100 10/31/17 22:08 98.5 F 75 18 150/68 99 10/31/17 22:01 98.0 F 75 18 150/68 99 10/31/17 20:48 72 18 168/71 97 10/31/17 19:54 98.9 F 71 18 169/73 99 Intake and Output 10/31/17 11/01/17 11/01/17 22:59 06:59 14:59 Intake Total 2398 Output Total 1300 800 Balance 2398 -1300 -800 Intake: Intake, IV Titration 2398 Amount Sodium Chloride 0.9% 1, 400 000 ml @ 100 mls/hr IV . Q10H STA Rx#:[id number] Sodium Chloride 0.9% 1, 999 000 ml @ 999 mls/hr IV . Q1H1M STA Rx#:[id number] Sodium Chloride 0.9% 500 999 ml @ 999 mls/hr IV .Q31M STA Rx#:[id number] Output: Urine 1300 800 Other: Voiding Method Indwelling Catheter Indwelling Catheter Weight 95.254 kg Results - Lab Results Most recent lab results Calcium 8.9 mg/dL (8.4-10.2) 10/31/17 20:03 Phosphorus 5.8 mg/dL (2.5-4.5) H 10/31/17 20:03 Magnesium 2.3 mg/dL (1.6-2.3) 10/31/17 20:03 10/31/17 20:03 10/31/17 20:03 Assessment and Plan Plan: Assessment: 1. Nonoliguric acute kidney injury mostly prerenal improving with IV hydration. Creatinine was 7.65 on admission and is down to 6.1 as of last night. Creatinine in September 2017 was as low as 1.1. Unclear as to what his baseline renal function is. Renal ultrasound from September 2017 was benign. 2. Chronic urinary retention with Bhatt catheter in place. 3. Pyuria maintained on IV Rocephin. 4. Rule out chronic kidney disease. 5. Hyperphosphatemia secondary to acute kidney injury. Expect improvement with recovering renal function. Plan: Continue normal saline at 100 mL an hour. Check urine culture. Encouraged oral intake. Avoid nephrotoxic agents and hypotensive episodes. Continue to monitor renal function and urine output closely. No urgent need for renal replacement therapy at this time. Thank you for the consultation. I will continue to follow the patient with you during his hospital stay.
[2017-11-01 11:48] LABS: Calcium 8.6 mg/dL (8.4-10.2); Potassium 4.7 mmol/L (3.5-5.1)
[2017-11-01] MEDS: SODIUM CHLORIDE 0.9% 1,000 ML IV SCH ×2 (12:25→21:00)
[2017-11-01] MEDS ORDERED: ACETAMINOPHEN TAB 325 MG TAB PO PRN (16:36)
[2017-11-01] MEDS ORDERED: NALOXONE 0.4 MG/ML 1 ML VIAL IV PRN (16:36)
[2017-11-01] MEDS ORDERED: CALCIUM CARBONATE 500 MG CHEWABLE PO PRN (16:36)
[2017-11-01] MEDS ORDERED: ONDANSETRON 4 MG/2 ML VIAL IVP PRN (16:36)
[2017-11-01] MEDS ORDERED: MELATONIN 3 MG TABLET PO PRN (16:36)
[2017-11-01] MEDS ORDERED: ALPRAZolam 0.25 MG TAB PO PRN (16:36)
--- NOTE | 2017-11-01 17:21 | HP ---
HISTORY AND PHYSICAL DATE OF ADMISSION: 10/31/2017 DATE OF SERVICE: 11/01/2017 PRESENTING COMPLAINT: Renal failure. HISTORY OF PRESENTING COMPLAINT: This is a 72-year-old patient who is hard of hearing. He was here about 3 weeks ago. Patient at that time had acute renal failure felt to be obstructive from BPH that resolved, and patient did have a Bhatt catheter that was placed. Patient does have moderate cognitive impairment and did poorly on the mini mental status exam on the last admission. Patient had been smoking up until then. Patient on admission was also treated for tinea cruris. Patient was brought in by the EMS, whose report said that patient's abdomen was distended, and a bladder scan showed it full of urine; 1600 mL of urine was obtained. Subsequently about 900 mL of blood-colored urine was obtained. According to the nurse, the patient's urine is clearing up. Patient was received from [facility], where he is being followed by Dr. Mane. Patient is sitting up on a chair, awake. The urine is somewhat clearing up. REVIEW OF SYSTEMS: Unable to do, as patient is very hard of hearing. PAST MEDICAL HISTORY: 1. Cognitive impairment. 2. BPH. PAST SURGICAL HISTORY: 1. Appendectomy. 2. Tonsillectomy. SOCIAL HISTORY: Patient admitted to [facility]. He was living by himself until recently. He served in the [employer] in the [place] [employer]. He was smoking up to half a pack a day for several years up until 3 weeks ago. FAMILY HISTORY: Father had Parkinson's disease. HOME MEDICATIONS: Flomax 0.8 mg at bedtime. ALLERGIES: NONE. PHYSICAL EXAMINATION: VITAL SIGNS ON PRESENTATION: Temperature 99, pulse 71, respiration 18, blood pressure 169/73, pulse ox 99% on room air. GENERAL APPEARANCE: Sitting up, awake. EYES: Pupils equal. Conjunctivae normal. HEENT: External appearance of nose and ears normal. Oral cavity dry. NECK: JVD unable to assess. Mass not palpable. RESPIRATORY: Effort normal. LUNGS: Decreased breath sounds. CARDIOVASCULAR: First and second sounds normal. No edema. ABDOMEN: Soft, nontender. Liver and spleen not palpable. Bhatt catheter in place with some hematuria. LYMPHATIC: No lymph node palpable in neck or axillae. PSYCHIATRY: Unable to assess. NEUROLOGICAL: Sitting up. Good balance. Moving all 4 limbs. MUSCULOSKELETAL: Some wasting of the muscles. INVESTIGATIONS: White count 21, hemoglobin 13.8, BUN 92, creatinine 6.10, troponin 0.052. Patient's BUN and creatinine were 88 and 7.65 on 10/31/2017. Patient's BUN and creatinine on 09/29/2017 were 21 and 1.10. TSH normal. ASSESSMENT: 1. Non-oliguric acute severe renal failure, obstructive from benign prostatic hypertrophy. 2. Hematuria, traumatic from Bhatt catheter. 3. Moderate cognitive impairment. Patient did poorly on mini mental status exam on last admission. 4. Hyperkalemia from renal failure. 5. Metabolic acidosis from renal failure. PLAN: Patient's Bhatt catheter remains in place; it is slowly clearing up. Given the hematuria, will stop patient's Lovenox. Patient to continue to get hydration with saline. Communication with the patient will be done in writing. Will change the patient to a renal diet for the time being. MMMANASAL / IJN: [id number] /
[2017-11-01] MEDS: TAMSULOSIN 0.4 MG CAP.ER.24H PO SCH (20:59)
[2017-11-02 01:24] VITALS: RESP 18
[2017-11-02] MEDS: cefTRIAXone IN SWFI 1,000 MG/10 ML SYRINGE IVP SCH (08:35)
[2017-11-02] MEDS: SODIUM CHLORIDE 0.9% 1,000 ML IV SCH ×2 (08:38→18:35)
[2017-11-02] MEDS ORDERED: ENOXAPARIN 30 MG/0.3 ML SYRINGE SQ SCH (09:00)
[2017-11-02 09:23] LABS: Calcium 8.3 mg/dL (8.4-10.2); Phosphorus 3.4 mg/dL (2.5-4.5); Potassium 4.3 mmol/L (3.5-5.1)
--- NOTE | 2017-11-02 10:21 | P.PN ---
Subjective Patient is seen in follow-up for acute kidney injury. Renal function is improving with creatinine down to 2.8 today. He is currently maintained on normal saline at 100 mL an hour. Patient only nods his head to verbal commands but doesn't verbalize much. Vital signs are stable. General: The patient appeared well nourished and normally developed. HEENT: Head exam is unremarkable. Neck is without jugular venous distension. LUNGS: Lungs are clear to auscultation and percussion. Breath sounds decreased. HEART: Rate and Rhythm are regular. First and second heart sounds normal. No murmurs, rubs or gallops. ABDOMEN: Abdominal exam reveals normal bowel sounds. Non-tender and non- distended. No evidence of peritonitis. EXTREMITITES: No clubbing, cyanosis, or edema. Objective - Vital Signs Vital signs: Vital Signs Temp 97.0 F L 11/02/17 06:35 Pulse 61 11/02/17 06:35 Resp 18 11/02/17 06:35 BP 132/72 11/02/17 06:35 Pulse Ox 100 11/02/17 06:35 Intake & Output 11/01/17 11/02/17 11/02/17 18:59 06:59 18:59 Intake Total 1075 240 Output Total 1600 2400 Balance -1600 -1325 240 Intake: Oral 1075 240 Output: Urine 1600 2400 Other: Voiding Method Indwelling Catheter Indwelling Catheter Indwelling Catheter - Labs CBC & Chem 7: 10/31/17 20:03 11/02/17 07:07 Labs: Abnormal Lab Results - Last 24 Hours (Table) 11/01/17 11/02/17 Range/Units 11:08 07:07 Chloride 108 H 112 H (98-107) mmol/L BUN 78 H 61 H (9-20) mg/dL Creatinine 4.19 H 2.80 H (0.66-1.25) mg/dL Glucose 180 H 111 H (74-99) mg/dL Calcium 8.3 L (8.4-10.2) mg/dL Microbiology - Last 24 Hours (Table) 10/31/17 20:03 Urine Culture - Preliminary Urine,Voided Group D Enterococcus Assessment and Plan Plan: Assessment: 1. Nonoliguric acute kidney injury mostly prerenal improving with IV hydration. Creatinine was 7.65 on admission and is down to 2.8 today. Creatinine in September 2017 was as low as 1.1. Unclear as to what his baseline renal function is. Renal ultrasound from September 2017 was benign. 2. Chronic urinary retention with Bhatt catheter in place. 3. UTI with urine culture positive for group D enterococcus maintained on IV antibiotics. 4. Rule out chronic kidney disease. 5. Hyperphosphatemia secondary to acute kidney injury. Expect improvement with recovering renal function. Plan: Continue normal saline at 100 mL an hour. Encouraged oral intake. Avoid nephrotoxic agents and hypotensive episodes. Repeat electrolytes in the morning. Await UA.
--- NOTE | 2017-11-02 18:26 | PN ---
PROGRESS NOTE DATE OF SERVICE: 11/02/17. PRESENTING COMPLAINT: Renal failure. INTERVAL HISTORY: The patient presents with hematuria and acute renal failure. Patient is very hard of hearing. Sitting up. Did tolerate his meal. REVIEW OF SYSTEMS: Difficult to obtain because of hard of hearing. CURRENT MEDICATIONS: Include IV fluids at 100 mL an hour. PHYSICAL EXAMINATION: Temperature 98, pulse 57, respiratory 18, blood pressure 166/64, pulse ox 100% on room air. GENERAL APPEARANCE: Sitting up, awake. EYES: Pupils equal. Conjunctivae normal. HEENT: External appearance of nose and ears normal. Oral cavity normal. NECK: JVD unable to assess. Mass not palpable. RESPIRATORY: Effort, lungs decreased breath sounds. CARDIOVASCULAR: 1st and 2nd sounds normal. No edema. ABDOMEN: Soft, nontender. Liver and spleen not palpable. Bhatt catheter in place. Hematuria present. PSYCHIATRY: Patient does follow commands. INVESTIGATIONS: Potassium 4.3, BUN 61, creatinine 2.80. ASSESSMENT: 1. Nonoliguric acute severe renal failure obstructive from benign prostatic hypertrophy, slowly improving. 2. Hematuria, traumatic Bhatt catheter. 3. Moderate cognitive impairment. The patient did poorly on mini-mental status exam on last admission. 4. Hyperkalemia from renal failure, improved. 5. Metabolic acidosis from renal failure. PLAN: Continue to hydrate the patient. Repeat electrolytes. MMODL / IJN: [id number] /
[2017-11-02] MEDS: TAMSULOSIN 0.4 MG CAP.ER.24H PO SCH (23:15)
[2017-11-03 00:11] LABS: Appearance,Urine Turbid (Clear); Bilirubin,Urine Negative (Negative); Blood,Urine Large (Negative); Color,Urine Red; Glucose,Urine (UA) Negative (Negative); Ketones,Urine Negative (Negative); Leukocyte Esterase,Urine Large (Negative); Mucus,Urine Rare /hpf; Nitrite,Urine Negative (Negative); Protein,Urine 2+ (Negative); RBC,Urine >182 /hpf (0-5); Specific Gravity,Urine 1.013 (1.001-1.035); Urobilinogen,Urine <2.0 mg/dL (<2.0); WBC,Urine >182 /hpf (0-5)
[2017-11-03] MEDS: SODIUM CHLORIDE 0.9% 1,000 ML IV SCH ×2 (05:34→20:12)
[2017-11-03] MEDS: cefTRIAXone IN SWFI 1,000 MG/10 ML SYRINGE IVP SCH (08:17)
[2017-11-03 08:58] LABS: Calcium 8.7 mg/dL (8.4-10.2); Magnesium 1.8 mg/dL (1.6-2.3); Potassium 4.3 mmol/L (3.5-5.1)
--- NOTE | 2017-11-03 10:16 | P.PN ---
Subjective Patient is seen in follow-up for acute kidney injury. Renal function is improving with creatinine down to 2.1 today. He is currently maintained on normal saline at 100 mL an hour. Patient only nods his head to verbal commands but doesn't verbalize much. Hemodynamically stable. Vital signs are stable. General: The patient appeared well nourished and normally developed. HEENT: Head exam is unremarkable. Neck is without jugular venous distension. LUNGS: Lungs are clear to auscultation and percussion. Breath sounds decreased. HEART: Rate and Rhythm are regular. First and second heart sounds normal. No murmurs, rubs or gallops. ABDOMEN: Abdominal exam reveals normal bowel sounds. Non-tender and non- distended. No evidence of peritonitis. EXTREMITITES: No clubbing, cyanosis, or edema. Objective - Vital Signs Vital signs: Vital Signs Temp 98.6 F 11/03/17 07:00 Pulse 59 L 11/03/17 07:00 Resp 18 11/03/17 07:00 BP 166/71 11/03/17 07:00 Pulse Ox 100 11/03/17 07:00 Intake & Output 11/02/17 11/03/17 11/03/17 18:59 06:59 18:59 Intake Total 1040 1200 240 Output Total 900 2750 Balance 140 -1550 240 Intake: Intake, IV Titration 800 Amount Sodium Chloride 0.9% 1, 800 000 ml @ 100 mls/hr IV . Q10H [facility] Rx#:[id number] Oral 240 1200 240 Output: Urine 900 2750 Other: Voiding Method Indwelling Catheter Indwelling Catheter Indwelling Catheter - Labs CBC & Chem 7: 10/31/17 20:03 11/03/17 08:14 Labs: Abnormal Lab Results - Last 24 Hours (Table) 11/02/17 11/03/17 Range/Units 23:46 08:14 BUN 43 H (9-20) mg/dL Creatinine 2.10 H (0.66-1.25) mg/dL Glucose 181 H (74-99) mg/dL Urine Protein 2+ H (Negative) Urine Blood Large H (Negative) Ur Leukocyte Esterase Large H (Negative) Urine RBC >182 H (0-5) /hpf Urine WBC >182 H (0-5) /hpf Urine WBC Clumps Moderate H (None) /hpf Urine Mucus Rare H (None) /hpf Microbiology - Last 24 Hours (Table) 10/31/17 20:03 Urine Culture - Final Urine,Voided Enterococcus faecalis Assessment and Plan Plan: Assessment: 1. Nonoliguric acute kidney injury mostly prerenal improving with IV hydration. Creatinine was 7.65 on admission and is down to 2.1 today. Creatinine in September 2017 was as low as 1.1. Unclear as to what his baseline renal function is. Renal ultrasound from September 2017 was benign. 2. Chronic urinary retention with Bhatt catheter in place. 3. UTI with urine culture positive for enterococcus faecalis maintained on IV antibiotics. 4. Rule out chronic kidney disease. 5. Hyperphosphatemia secondary to acute kidney injury. Expect improvement with recovering renal function. Trending down. Plan: I will decrease normal saline to 50 mL an hour. Encouraged oral intake. Avoid nephrotoxic agents and hypotensive episodes. Repeat electrolytes in the morning.
[2017-11-03] MEDS: hydrALAZINE HCL 25 MG TAB PO SCH ×2 (10:39→20:12)
[2017-11-03] MEDS ORDERED: SODIUM CHLORIDE 0.9% IRRIGATIO 3,000 ML IRRIGATION ONE (15:30)
--- NOTE | 2017-11-03 19:36 | PN ---
PROGRESS NOTE DATE OF SERVICE: 11/03/17. PRESENT COMPLAINT: Renal failure, hematuria. INTERVAL HISTORY: Patient presented with hematuria and acute renal failure. The patient is very hard of hearing, does communicate with writing. Hematuria still present. Otherwise, tolerating a diet. Sitting up in a chair, comfortable. REVIEW OF SYSTEMS: Difficult to obtain because the patient is very hard. CURRENT MEDICATIONS: Reviewed that include IV fluids at 50 mL an hour. PHYSICAL EXAMINATION: Temperature 97.9, pulse 62, respiratory 18, blood pressure 166/71, pulse ox 100% on room air. GENERAL APPEARANCE: Sitting up in a chair, comfortable awake. EYES: Pupils equal. Conjunctivae normal. HEENT: External appearance of nose and ears normal. Oral cavity normal. NECK: JVD unable to assess. Mass not palpable. RESPIRATORY: Effort normal. LUNGS: Diminished breath sounds. CARDIOVASCULAR: 1st and 2nd, no edema. ABDOMEN: Soft, nontender. Liver and spleen not palpable. Bhatt catheter in place. present. PSYCHIATRY: Patient does follow commands and can read lips. INVESTIGATIONS: Potassium 4.3, BUN 43, creatinine 2.10. ASSESSMENT: 1. Nonoliguric acute severe renal failure obstructive from benign prostatic hypertrophy, slowly improving. 2. Hematuria from traumatic Bhatt catheter persistent acute. 3. Moderate cognitive impairment. Patient did poorly on mini-mental state exam on the last admission. 4. Hyperkalemia from renal failure, improved. 5. Metabolic acidosis from renal failure. PLAN: I spoke to the nurse to do a bladder irrigation. See if the hematuria resolves. Continue with IV fluids. Repeat electrolytes in the morning and CBC. MMODL / IJN: [id number] /
[2017-11-03] MEDS: TAMSULOSIN 0.4 MG CAP.ER.24H PO SCH (20:12)
[2017-11-04] MEDS: hydrALAZINE HCL 25 MG TAB PO SCH (08:10)
[2017-11-04] MEDS: cefTRIAXone IN SWFI 1,000 MG/10 ML SYRINGE IVP SCH (09:11)
[2017-11-04 09:20] LABS: Basophils % (A) 1 %; Eosinophils # (A) 0.3 k/uL (0-0.7); Eosinophils % (A) 5 %; HCT 38.6 % (39.0-53.0); HGB 12.2 gm/dL (13.0-17.5); Lymphocytes % (A) 15 %; MCH 29.1 pg (25.0-35.0); MCHC 31.6 g/dL (31.0-37.0); MCV 92.1 fL (80.0-100.0); Mean Platelet Volume 6.8; Monocytes # (A) 0.4 k/uL (0-1.0); Monocytes % (A) 6 %; Neutrophils # (A) 4.9 k/uL (1.3-7.7); Neutrophils % (A) 72 %; Platelet Count 224 k/uL (150-450); RBC 4.19 m/uL (4.30-5.90); RDW 14.6 % (11.5-15.5); WBC 6.8 k/uL (3.8-10.6)
[2017-11-04 09:33] LABS: Calcium 8.5 mg/dL (8.4-10.2); Potassium 3.9 mmol/L (3.5-5.1)
[2017-11-04] MEDS ORDERED: PIPERACILLIN-TAZOBACTAM 3.375 GM in DEXTROSE/WATER 1 50ML.BAG IVPB SCH (12:00)
--- NOTE | 2017-11-04 14:24 | P.DS ---
Providers Date of admission: 10/31/17 21:12 Expected date of discharge: 11/04/17 Attending physician: Marlon Arenas Consults: 10/31/17 21:11 Consult Physician Routine Consulting Provider: Aparna Menchaca Consult Reason/Comments: arf Do you want consulting provider notified?: Yes Primary care physician: [facility] Course: Final diagnoses 1. Nonoliguric Acute renal failure, prerenal improving IV fluid hydration. Rule out chronic kidney disease 2. Acute UTI enterococcus faecalis,secondary to chronic Bhatt related to urinary retention, present on admission 3. Hematuria from traumatic Bhatt, improving 4. Moderate cognitive impairment 5. Hyperphosphatemia secondary to acute renal failure, improving Hospital course: This is a 72-year-old gentleman admitted with acute renal failure, acute UTI and hematuria, traumatic. Creatinine on admission 7.65 .Evaluated by nephrology. Received IV fluid hydration. Creatinine currently 1.74. Hematuria improved. Significant clinical improvement. Cleared by nephrology for discharge. Patient is being discharged to [facility] in a stable condition with guarded prognosis. EXAM: General: Sitting up in chair, no acute distress LUNGS: Clear to auscultation, bilateral bases diminished CV: Regular S1 and S2, no murmurs rubs or gallops ABD: Soft, nondistended, nontender, positive bowel sounds PSYCH/NEURO: Patient reads lips, nods head ,follows commands The impression and plan of care has been dictated as directed. : I performed a history and examination of this patient, discussed the same with the dictator. I agree with the dictator's note ,documented as a scribe. Any additional findings or plans will be noted. Time taken: 35 minutes Patient Condition at Discharge: Stable Plan - Discharge Summary New Discharge Prescriptions: New Acetaminophen Tab [Tylenol] 650 mg PO Q6HR PRN tab PRN Reason: Mild Pain Or Fever > 100.5 Amoxic-Pot Clav 875-125Mg [Augmentin 875-125] 1 tab PO Q12HR #14 tablet hydrALAZINE HCL [Apresoline] 25 mg PO BID tab Omeprazole [PriLOSEC] 20 mg PO AC-BID #14 cap Continue Tamsulosin HCl [Flomax] 0.8 mg PO HS Discharge Medication List Tamsulosin HCl [Flomax] 0.8 mg PO HS 10/31/17 [History] Acetaminophen Tab [Tylenol] 650 mg PO Q6HR PRN tab 11/04/17 [Rx] Amoxic-Pot Clav 875-125Mg [Augmentin 875-125] 1 tab PO Q12HR #14 tablet [Rx] Omeprazole [PriLOSEC] 20 mg PO AC-BID #14 cap 11/04/17 [Rx] hydrALAZINE HCL [Apresoline] 25 mg PO BID tab 11/04/17 [Rx] Follow up Appointment(s)/Referral(s): Andres Mane DO [Primary Care Provider] - 3 Days Aparna Menchaca MD [STAFF PHYSICIAN] - 1 Week Activity/Diet/Wound Care/Special Instructions: medi PH Diet: renal Activityi: as tolerated CBc,bmp in 3 days
--- NOTE | 2017-11-04 14:25 | CDI ---
Last Revision, April 2017 Documentation Clarification Form Date: 11/04/17 From: Lety Tate RN, CCDS Admit Date: 10/31/2017 9:12:00 PM Patient Name: Sabas Ngo Visit Number: [id number] Discharge Date: ATTENTION: The Clinical Documentation Specialists (CDI) and [facility] Coding Staff appreciate your assistance in clarifying documentation. Please respond to the clarification below the line at the bottom and electronically sign. The CDI & [facility] Coding staff will review the response and follow-up if needed. Please note: Queries are made part of the Legal Health Record. If you have any questions, please contact the author of this message via ITS. Dr. Marlon Stanley UTI was documented in the ER evaluation and Nephrology progress notes on . History/Risk Factors: Chronic urinary retention with Feng POA (present on admission), Decreasing memory, Clinical Indicators: present for evaluation of abnormal labs including elevated BUN/creatinine. He had a feng catheter on admission with hematuria noted. Urinalysis: color red, Large urine blood, Ur Leukocyte Esterase Large, urine WBC >182; Urine culture Enterococcus faecalis Vital Signs: 169/73 71 18 98.9 WBC: 21.0, BUN 92, CR 6.10 Treatment Zosyn IV Monitor Labs IV fluids Please document the condition that these clinical indicators signify, whether Present on Admission, and cause if known: UTI If due to catheter, please document Specify organism, if known Identify location of infection (if known) Bladder, Kidney, Urethra Contaminated specimen Other, please specify Unable to determine Present on Admission: Yes No Please continue to document in your progress notes and discharge summary in order to capture severity of illness and risk of mortality. Include clinical findings that support your diagnosis. __ acute compicated cystitis from Enterocococcus secondary to feng catheter MTDD
[2017-11-04 14:50] VITALS: BP 177/63; PULSE 76; TEMP 97.3
--- NOTE | 2017-11-04 15:04 | PN ---
PROGRESS NOTE Patient is seen for followup of acute kidney injury. His renal function has improved significantly with creatinine down to 1.7 from 6.1 mg/dL. The patient will be discharged today. He is currently on IV fluids at about 50 mL an hour. PHYSICAL EXAMINATION: Blood pressure is 131/82, heart rate 57 per minute. Patient is afebrile. Examination of the heart S1, S2. Examination of the lungs decreased breath sounds at the bases. Abdomen is soft, nontender. Examination of the lower extremities shows trace edema bilaterally. The patient is moving all 4 extremities. LAB: Show sodium 144, potassium 3.9, BUN 36, serum creatinine 1.74, hemoglobin 12.2 g/dL. ASSESSMENT: 1. Acute kidney injury, acute tubular necrosis, currently improved. 2. Urinary tract infection. Urine culture growing Enterococcus faecalis. The patient is maintained on Zosyn. 3. Hyperphosphatemia secondary to renal failure. We will repeat labs as outpatient. Expect improvement with improving renal function. PLAN: Patient is stable for discharge from Nephrology standpoint. He will need repeat labs to be done and follow up as outpatient in about 1-2 weeks time. MMODL / IJN: [id number] /
== END 2017-11-04 16:28 | DRG 698 ==
LOC: EC 19:50 → 4MS4W 21:12
PROVIDERS: ADMIT Hospitalist; ATTEND Hospitalist
DX: T83.511A Infection and inflammatory reaction due to indwelling urethral catheter, initial encounter (principal); N17.0 Acute kidney failure with tubular necrosis; E87.2 Acidosis; S37.10XA Unspecified injury of ureter, initial encounter; Y73.8 Miscellaneous gastroenterology and urology devices associated with adverse incidents, not elsewhere classified; Y84.6 Urinary catheterization as the cause of abnormal reaction of the patient, or of later complication, without mention of misadventure at the time of the procedure; B35.6 Tinea cruris; B95.2 Enterococcus as the cause of diseases classified elsewhere; E83.39 Other disorders of phosphorus metabolism; E86.0 Dehydration; E87.5 Hyperkalemia; F17.200 Nicotine dependence, unspecified, uncomplicated; H91.90 Unspecified hearing loss, unspecified ear; N39.0 Urinary tract infection, site not specified; N40.0 Benign prostatic hyperplasia without lower urinary tract symptoms; Z82.0 Family history of epilepsy and other diseases of the nervous system; R41.89 Other symptoms and signs involving cognitive functions and awareness
CPT/HCPCS: 36415; 80048; 80053; 81001; 82550; 82553; 83735; 84075; 84100; 84460; 84484; 85025; 85027; 85610; 85730; 87077; 87086; 87186; 93005; 94760; 96361; 96374; 99285

== ENCOUNTER 2017-12-01 21:55 | Inpatient (IN) | payer MEDICARE ==
--- NOTE | 2017-12-01 22:21 | ED ---
General Adult HPI - General Chief complaint: Recheck/Abnormal Lab/Rx Stated complaint: Abnormal labs Time Seen by Provider: 12/01/17 22:01 Source: EMS Mode of arrival: EMS Limitations: altered mental status (Patient is extremely hard of hearing and in addition appears may be delirious) - History of Present Illness Initial comments: Patient is 72-year-old man sent for evaluation after labs sent from the longterm revealed increasing BUN/creatinine and white blood cell count. It is reported that the patient is very hard of hearing and I am unable to obtain any history from the patient. Onset/Timin -: days(s) - Related Data Home Medications Medication Instructions Recorded Confirmed Tamsulosin HCl [Flomax] 0.8 mg PO HS 10/31/17 12/02/17 Amino Acids/Protein Hydrolys 30 ml PO BID 12/02/17 12/02/17 [Pro-Stat Supplement] Multivitamins, Thera [Multivitamin 1 tab PO DAILY 12/02/17 12/02/17 (formulary)] Previous Rx's Medication Instructions Recorded Acetaminophen Tab [Tylenol] 650 mg PO Q6HR PRN tab 11/04/17 hydrALAZINE HCL [Apresoline] 25 mg PO BID tab 11/04/17 Allergies Allergy/AdvReac Type Severity Reaction Status Date / Time No Known Allergies Allergy Verified 12/02/17 07:07 Review of Systems ROS Statement: Those systems with pertinent positive or pertinent negative responses have been documented in the HPI. ROS Other: All systems not noted in ROS Statement are negative. Limitations: ROS unobtainable due to patients medical condition (Patient very hard of hearing) Past Medical History Past Medical History: Dementia, Prostate Disorder, Renal Disease Additional Past Medical History / Comment(s): Pt and nephewStephen states pt has not been to a doctor for years. Pt is unsteady when first up at times. He has had decreasing memory and occasional confusion over the past 2-3 months and his gait has become shuffling. He is a and served in [place]. NephewStephen confirms pt probable had agent orange exposure. History of Any Multi-Drug Resistant Organisms: None Reported Past Surgical History: Appendectomy, Tonsillectomy Past Anesthesia/Blood Transfusion Reactions: No Reported Reaction Past Psychological History: Anxiety Smoking Status: Current some day smoker Past Alcohol Use History: None Reported Past Drug Use History: None Reported - Past Family History Father Family Medical History: Musculoskeletal Disorder, Neurologic Disorder Additional Family Medical History / Comment(s): Father had parkinson's. Mother Family Medical History: Cancer Additional Family Medical History / Comment(s): Unknown type of cancer. General Exam Limitations: altered mental status General appearance: alert Head exam: Present: atraumatic, normocephalic Eye exam: Present: normal appearance, PERRL, EOMI. Absent: scleral icterus, conjunctival injection ENT exam: Present: mucous membranes dry Neck exam: Present: full ROM. Absent: tenderness, meningismus Respiratory exam: Present: rhonchi, decreased breath sounds (Right base). Absent: respiratory distress, wheezes, rales, stridor, accessory muscle use, prolonged expiratory Cardiovascular Exam: Present: normal rhythm, tachycardia, normal heart sounds. Absent: systolic murmur, diastolic murmur, rubs, gallop GI/Abdominal exam: Present: soft. Absent: distended, tenderness, guarding, rebound, mass Extremities exam: Present: normal capillary refill, pedal edema (There is a trace of left ankle edema.). Absent: calf tenderness Skin exam: Present: warm, dry, intact, normal color. Absent: rash Course Vital Signs 12/01/17 12/01/17 12/01/17 21:57 22:38 23:16 Temperature 98.5 F Pulse Rate 119 H 124 H 106 H Respiratory 16 20 20 Rate Blood Pressure 123/68 124/60 123/65 O2 Sat by Pulse 91 L 95 95 Oximetry 12/02/17 12/02/17 12/02/17 00:10 01:00 01:34 Temperature 101 F H Pulse Rate 140 H 156 H 142 H Respiratory 20 20 20 Rate Blood Pressure 123/60 162/60 110/51 O2 Sat by Pulse 88 L 88 L 87 L Oximetry 12/02/17 12/02/17 12/02/17 03:17 03:51 04:10 Temperature Pulse Rate 147 H 139 H 180 H Respiratory 30 H 29 H 30 H Rate Blood Pressure 162/65 140/63 130/74 O2 Sat by Pulse 84 L 85 L 91 L Oximetry 12/02/17 12/02/17 12/02/17 04:48 06:00 06:36 Temperature Pulse Rate 130 H 118 H 99 Respiratory 16 32 H 28 H Rate Blood Pressure 140/56 158/67 114/52 O2 Sat by Pulse 98 100 100 Oximetry 12/02/17 12/02/17 12/02/17 07:06 07:43 07:56 Temperature Pulse Rate 124 H 101 H 103 H Respiratory 12 12 Rate Blood Pressure 108/68 115/59 O2 Sat by Pulse 100 100 Oximetry 12/02/17 12/02/17 08:05 08:06 Temperature 98.9 F Pulse Rate 100 111 H Respiratory 31 H Rate Blood Pressure 81/47 O2 Sat by Pulse 100 Oximetry EKG Findings - EKG Comments: EKG Findings:: Today's EKG is similar to the comparison EKG from 10/31/2017 - EKG Results: EKG: interpreted by ERMD, sinus rhythm, normal axis, normal QRS EKG shows: tachycardia (Rate approximately 112 bpm) - Blocks, [place], Hypertrophy, ST Abn: Repolarization changes or abnormalities: ST or T wave suggestive of ischemia ( There are lateral T-wave inversions, leads 1 and aVL area) Procedures - Sepsis Sepsis Focused Exam #1 Sepsis Focused Exam Date: 12/02/17 Sepsis Focused Exam Time: 03:11 Sepsis Focused Exam Complete: Yes Vital Signs & RN Notes Reviewed: Yes Capillary Refill: < 2 Seconds: Fingers Peripheral Pulses: Normal: Radial (R) Skin Color: Flushed Respiratory Exam: respiratory distress, rales, rhonchi Cardiovascular Exam: tachycardia Medical Decision Making - Medical Decision Making Patient 72-year-old man sent from longterm for evaluation after worsening labs there. On initial evaluation here, it appears he may have a right-sided pneumonia. Labs show lactic acidosis and patient appears septic as well. The patient is given IV fluid and antibiotics. The patient does go on to develop worsening respiratory distress and then goes into atrial fibrillation with a rapid ventricular rate. IV Cardizem started. The patient becoming more dyspneic and O2 sats were decreasing and nasal cannula , therefore patient intubated. Case discussed with Dr. Blankenship, and will be admitted to ICU. - Lab Data Result diagrams: 12/01/17 22:13 12/01/17 22:13 Lab Results 12/01/17 12/01/17 12/01/17 Range/Units 22:13 22:13 22:13 WBC 13.8 H (3.8-10.6) k/uL RBC 3.99 L (4.30-5.90) m/uL Hgb 11.9 L (13.0-17.5) gm/dL Hct 36.1 L (39.0-53.0) % MCV 90.5 (80.0-100.0) fL MCH 29.9 (25.0-35.0) pg MCHC 33.0 (31.0-37.0) g/dL RDW 15.9 H (11.5-15.5) % Plt Count 261 (150-450) k/uL Neutrophils % (Manual) 81 % Band Neutrophils % 10 % Lymphocytes % (Manual) 6 % Monocytes % (Manual) 3 % Neutrophils # (Manual) 12.50 H (1.3-7.7) k/uL Lymphocytes # (Manual) 0.83 L (1.0-4.8) k/uL Monocytes # (Manual) 0.41 (0-1.0) k/uL Nucleated RBCs 0 (0-0) /100 WBC Manual Slide Review Performed Anisocytosis (manual) Present PT (9.0-12.0) sec INR (<1.2) APTT (22.0-30.0) sec Sodium 140 (137-145) mmol/L Potassium 4.6 (3.5-5.1) mmol/L Chloride 103 (98-107) mmol/L Carbon Dioxide 25 (22-30) mmol/L Anion Gap 12 mmol/L BUN 97 H* (9-20) mg/dL Creatinine 2.60 H (0.66-1.25) mg/dL Est GFR (CKD-EPI)AfAm 27 (>60 ml/min/1.73 sqM) Est GFR (CKD-EPI)NonAf 24 (>60 ml/min/1.73 sqM) Glucose 243 H (74-99) mg/dL Lactic Ac Sepsis Rflx Plasma Lactic Acid Redd 3.2 H* (0.7-2.0) mmol/L Calcium 9.1 (8.4-10.2) mg/dL Total Bilirubin 0.7 (0.2-1.3) mg/dL AST 40 (17-59) U/L ALT 31 (21-72) U/L Alkaline Phosphatase 73 (38-126) U/L Ammonia 11 (<30) umol/L Total Creatine Kinase (55-170) U/L CK-MB (CK-2) (0.0-2.4) ng/mL CK-MB (CK-2) Rel Index Troponin I (0.000-0.034) ng/mL Total Protein 5.3 L (6.3-8.2) g/dL Albumin 2.8 L (3.5-5.0) g/dL Urine Color Urine Appearance (Clear) Urine pH (5.0-8.0) Ur Specific [place] (1.001-1.035) Urine Protein (Negative) Urine Glucose (UA) (Negative) Urine Ketones (Negative) Urine Blood (Negative) Urine Nitrite (Negative) Urine Bilirubin (Negative) Urine Urobilinogen (<2.0) mg/dL Ur Leukocyte Esterase (Negative) Urine RBC (0-5) /hpf Urine WBC (0-5) /hpf Urine WBC Clumps (None) /hpf Urine Bacteria (None) /hpf Urine Mucus (None) /hpf Urine Opiates Screen (NotDetected) Ur Oxycodone Screen (NotDetected) Urine Methadone Screen (NotDetected) Ur Propoxyphene Screen (NotDetected) Ur Barbiturates Screen (NotDetected) U Tricyclic Antidepress (NotDetected) Ur Phencyclidine Scrn (NotDetected) Ur Amphetamines Screen (NotDetected) U Methamphetamines Scrn (NotDetected) U Benzodiazepines Scrn (NotDetected) Urine Cocaine Screen (NotDetected) U Marijuana (THC) Screen (NotDetected) 12/01/17 12/01/17 12/01/17 Range/Units 22:20 22:53 23:18 WBC (3.8-10.6) k/uL RBC (4.30-5.90) m/uL Hgb (13.0-17.5) gm/dL Hct (39.0-53.0) % MCV (80.0-100.0) fL MCH (25.0-35.0) pg MCHC (31.0-37.0) g/dL RDW (11.5-15.5) % Plt Count (150-450) k/uL Neutrophils % (Manual) % Band Neutrophils % % Lymphocytes % (Manual) % Monocytes % (Manual) % Neutrophils # (Manual) (1.3-7.7) k/uL Lymphocytes # (Manual) (1.0-4.8) k/uL Monocytes # (Manual) (0-1.0) k/uL Nucleated RBCs (0-0) /100 WBC Manual Slide Review Anisocytosis (manual) PT (9.0-12.0) sec INR (<1.2) APTT (22.0-30.0) sec Sodium (137-145) mmol/L Potassium (3.5-5.1) mmol/L Chloride (98-107) mmol/L Carbon Dioxide (22-30) mmol/L Anion Gap mmol/L BUN (9-20) mg/dL Creatinine (0.66-1.25) mg/dL Est GFR (CKD-EPI)AfAm (>60 ml/min/1.73 sqM) Est GFR (CKD-EPI)NonAf (>60 ml/min/1.73 sqM) Glucose (74-99) mg/dL Lactic Ac Sepsis Rflx Y Plasma Lactic Acid Redd (0.7-2.0) mmol/L Calcium (8.4-10.2) mg/dL Total Bilirubin (0.2-1.3) mg/dL AST (17-59) U/L ALT (21-72) U/L Alkaline Phosphatase (38-126) U/L Ammonia (<30) umol/L Total Creatine Kinase 457 H (55-170) U/L CK-MB (CK-2) 9.5 H* (0.0-2.4) ng/mL CK-MB (CK-2) Rel Index 2.1 Troponin I 0.072 H* (0.000-0.034) ng/mL Total Protein (6.3-8.2) g/dL Albumin (3.5-5.0) g/dL Urine Color Yellow Urine Appearance Turbid (Clear) Urine pH 8.5 H (5.0-8.0) Ur Specific [place] 1.015 (1.001-1.035) Urine Protein 3+ H (Negative) Urine Glucose (UA) Negative (Negative) Urine Ketones Negative (Negative) Urine Blood Moderate H (Negative) Urine Nitrite Negative (Negative) Urine Bilirubin Negative (Negative) Urine Urobilinogen <2.0 (<2.0) mg/dL Ur Leukocyte Esterase Large H (Negative) Urine RBC 123 H (0-5) /hpf Urine WBC >182 H (0-5) /hpf Urine WBC Clumps Many H (None) /hpf Urine Bacteria Occasional H (None) /hpf Urine Mucus Occasional H (None) /hpf Urine Opiates Screen Not Detected (NotDetected) Ur Oxycodone Screen Not Detected (NotDetected) Urine Methadone Screen Not Detected (NotDetected) Ur Propoxyphene Screen Not Detected (NotDetected) Ur Barbiturates Screen Not Detected (NotDetected) U Tricyclic Antidepress Not Detected (NotDetected) Ur Phencyclidine Scrn Not Detected (NotDetected) Ur Amphetamines Screen Not Detected (NotDetected) U Methamphetamines Scrn Not Detected (NotDetected) U Benzodiazepines Scrn Not Detected (NotDetected) Urine Cocaine Screen Not Detected (NotDetected) U Marijuana (THC) Screen Not Detected (NotDetected) 12/01/17 Range/Units 23:18 WBC (3.8-10.6) k/uL RBC (4.30-5.90) m/uL Hgb (13.0-17.5) gm/dL Hct (39.0-53.0) % MCV (80.0-100.0) fL MCH (25.0-35.0) pg MCHC (31.0-37.0) g/dL RDW (11.5-15.5) % Plt Count (150-450) k/uL Neutrophils % (Manual) % Band Neutrophils % % Lymphocytes % (Manual) % Monocytes % (Manual) % Neutrophils # (Manual) (1.3-7.7) k/uL Lymphocytes # (Manual) (1.0-4.8) k/uL Monocytes # (Manual) (0-1.0) k/uL Nucleated RBCs (0-0) /100 WBC Manual Slide Review Anisocytosis (manual) PT 11.9 (9.0-12.0) sec INR 1.3 H (<1.2) APTT 27.4 (22.0-30.0) sec Sodium (137-145) mmol/L Potassium (3.5-5.1) mmol/L Chloride (98-107) mmol/L Carbon Dioxide (22-30) mmol/L Anion Gap mmol/L BUN (9-20) mg/dL Creatinine (0.66-1.25) mg/dL Est GFR (CKD-EPI)AfAm (>60 ml/min/1.73 sqM) Est GFR (CKD-EPI)NonAf (>60 ml/min/1.73 sqM) Glucose (74-99) mg/dL Lactic Ac Sepsis Rflx Plasma Lactic Acid Redd (0.7-2.0) mmol/L Calcium (8.4-10.2) mg/dL Total Bilirubin (0.2-1.3) mg/dL AST (17-59) U/L ALT (21-72) U/L Alkaline Phosphatase (38-126) U/L Ammonia (<30) umol/L Total Creatine Kinase (55-170) U/L CK-MB (CK-2) (0.0-2.4) ng/mL CK-MB (CK-2) Rel Index Troponin I (0.000-0.034) ng/mL Total Protein (6.3-8.2) g/dL Albumin (3.5-5.0) g/dL Urine Color Urine Appearance (Clear) Urine pH (5.0-8.0) Ur Specific [place] (1.001-1.035) Urine Protein (Negative) Urine Glucose (UA) (Negative) Urine Ketones (Negative) Urine Blood (Negative) Urine Nitrite (Negative) Urine Bilirubin (Negative) Urine Urobilinogen (<2.0) mg/dL Ur Leukocyte Esterase (Negative) Urine RBC (0-5) /hpf Urine WBC (0-5) /hpf Urine WBC Clumps (None) /hpf Urine Bacteria (None) /hpf Urine Mucus (None) /hpf Urine Opiates Screen (NotDetected) Ur Oxycodone Screen (NotDetected) Urine Methadone Screen (NotDetected) Ur Propoxyphene Screen (NotDetected) Ur Barbiturates Screen (NotDetected) U Tricyclic Antidepress (NotDetected) Ur Phencyclidine Scrn (NotDetected) Ur Amphetamines Screen (NotDetected) U Methamphetamines Scrn (NotDetected) U Benzodiazepines Scrn (NotDetected) Urine Cocaine Screen (NotDetected) U Marijuana (THC) Screen (NotDetected) Critical Care Time Critical Care Time: Yes (45 minutes) Disposition Clinical Impression: Urinary tract infection, Sepsis, Acute renal failure Disposition: ADMITTED IP TO THIS HOSP Condition: Poor Is patient prescribed a controlled substance at d/c from ED?: No Time of Disposition: 00:19
[2017-12-01 22:27] LABS: HCT 36.1 % (39.0-53.0); HGB 11.9 gm/dL (13.0-17.5); MCH 29.9 pg (25.0-35.0); MCV 90.5 fL (80.0-100.0); Mean Platelet Volume 7.2; Platelet Count 261 k/uL (150-450); RBC 3.99 m/uL (4.30-5.90); RDW 15.9 % (11.5-15.5); WBC 13.8 k/uL (3.8-10.6)
[2017-12-01] MEDS ORDERED: SODIUM CHLORIDE 0.9% 1,000 ML IV ONE (22:27)
[2017-12-01 22:39] LABS: Albumin 2.8 g/dL (3.5-5.0); Calcium 9.1 mg/dL (8.4-10.2); Potassium 4.6 mmol/L (3.5-5.1); Total Bilirubin 0.7 mg/dL (0.2-1.3); Total Protein 5.3 g/dL (6.3-8.2)
[2017-12-01 22:43] LABS: Appearance,Urine Turbid (Clear); Bacteria,Urine Occasional /hpf; Bilirubin,Urine Negative (Negative); Blood,Urine Moderate (Negative); Color,Urine Yellow; Glucose,Urine (UA) Negative (Negative); Ketones,Urine Negative (Negative); Leukocyte Esterase,Urine Large (Negative); Mucus,Urine Occasional /hpf; Nitrite,Urine Negative (Negative); PH, Urine 8.5 (5.0-8.0); Protein,Urine 3+ (Negative); RBC,Urine 123 /hpf (0-5); Specific Gravity,Urine 1.015 (1.001-1.035); Urobilinogen,Urine <2.0 mg/dL (<2.0); WBC,Urine >182 /hpf (0-5)
[2017-12-01 22:46] LABS: Band Neutrophils % 10 %; Lymphocytes # (M) 0.83 k/uL (1.0-4.8); Monocytes # (M) 0.41 k/uL (0-1.0); Neutrophils % (M) 81 %; Nucleated Red Blood Cells 0 /100 WBC (0-0); Total Cells Counted 100
[2017-12-01 22:47] LABS: Anisocytosis (M) Present
[2017-12-01 22:53] LABS: Lactic Acid, Venous 3.2 mmol/L (0.7-2.0)
[2017-12-01 22:54] LABS: Amphetamine Screen,Urine Not Detected (NotDetected); Barbiturate Screen,Urine Not Detected (NotDetected); Benzodiazepines Screen,Urine Not Detected (NotDetected); Cocaine Screen,Urine Not Detected (NotDetected); Methadone Screen, Urine Not Detected (NotDetected); Opiate Screen,Urine Not Detected (NotDetected); Oxycodone Screen, Urine Not Detected (NotDetected); Phencyclidine Screen,Urine Not Detected (NotDetected); Tricyclic Antidepressant,Urine Not Detected (NotDetected); Urn Cannabinoid Scrn Not Detected (NotDetected)
--- NOTE | 2017-12-01 23:10 | XR ---
EXAM: XR Chest, 1 View CLINICAL HISTORY: Altered mental status TECHNIQUE: Frontal view of the chest. COMPARISON: Chest x-ray dated 10/02/2017 FINDINGS: Lungs: Airspace opacities within the lung bases likely secondary to low lung volumes and atelectasis. Pneumonia is not excluded. Pleural space: Unremarkable. No pneumothorax. Heart: Unremarkable. No cardiomegaly. Mediastinum: Unremarkable. Bones/joints: Unremarkable. IMPRESSION: Airspace opacities within the lung bases likely secondary to low lung volumes and atelectasis. Pneumonia is not excluded.
[2017-12-01 23:52] LABS: INR 1.3 (<1.2); Partial Thromboplastin Time 27.4 sec (22.0-30.0); Prothrombin Time 11.9 sec (9.0-12.0)
[2017-12-02] MEDS ORDERED: SODIUM CHLORIDE 0.9% 1,500 ML IV ONE (00:14)
[2017-12-02] MEDS ORDERED: LEVOFLOXACIN 750MG-D5W PMX 750 MG in DEXTROSE/WATER 1 150ML.BAG IVPB STA (00:15)
[2017-12-02 00:27] LABS: Creatine Kinase MB 9.5 ng/mL (0.0-2.4)
[2017-12-02 00:28] LABS: Troponin I 0.072 ng/mL (0.000-0.034)
[2017-12-02] MEDS ORDERED: DILTIAZEM DRIP BOLUS FROM BAG 1 MG SOLN IV ONE ×3 (01:08→03:43)
[2017-12-02] MEDS: DILTIAZEM 50 MG in SODIUM CHLORIDE 0.9% 40 ML IV SCH ×3 (01:32→14:09)
--- NOTE | 2017-12-02 03:34 | XR ---
EXAMINATION TYPE: XR chest 1V portable DATE OF EXAM: 12/02/2017 COMPARISON: Yesterday HISTORY: Chest pain TECHNIQUE: Single frontal view of the chest is obtained. FINDINGS: There is mild pulmonary vascular congestion. There is pulmonary interstitial and alveolar edema. There is coalescent density in the right lower lobe. There are old left-sided healed rib fract ures. IMPRESSION: There is increasing right lower lobe consolidation compared to exam 5 hours ago. This is consistent with pneumonia. Mild heart failure is possible.
[2017-12-02] MEDS: PIPERACILLIN-TAZOBACTAM 3.375 GM in DEXTROSE/WATER 1 50ML.BAG IVPB STA ×2 (04:05→04:52)
[2017-12-02] MEDS: PROPOFOL 1,000 MG in EMPTY BAG 1 BAG IV SCH ×3 (04:15→20:08)
[2017-12-02] MEDS ORDERED: MIDAZOLAM 1 MG/ML 5 ML VIAL IV STA (04:16)
[2017-12-02] MEDS ORDERED: ACETAMINOPHEN SUPPOSITORY 650 MG SUPP RECTAL PRN (04:40)
[2017-12-02] MEDS ORDERED: MORPHINE SULFATE 4 MG/ML SYRINGE IV PRN (04:40)
[2017-12-02] MEDS ORDERED: ACETAMINOPHEN TAB 325 MG TAB PO PRN (04:40)
[2017-12-02] MEDS ORDERED: NALOXONE 0.4 MG/ML 1 ML VIAL IV PRN (04:40)
[2017-12-02] MEDS ORDERED: ARTIFICIAL TEARS OINTMENT 3.5 GM TUBE BOTH EYES PRN (04:40)
[2017-12-02 04:44] LABS: ABG Base Excess -0.8 mmol/L; ABG HCO3 25 mmol/L (21-25); ABG Oxygen Saturation 95.8 % (94-97); ABG PCO2 45 mmHg (35-45); ABG PH 7.35 (7.35-7.45); ABG PO2 82 mmHg (83-108); ABG TCO2 26 mmol/L (19-24)
[2017-12-02] MEDS ORDERED: PNEUMONIA PROTOCOL UTILIZED 1 EACH MISC PO PRN (04:44)
--- NOTE | 2017-12-02 04:47 | XR ---
EXAMINATION TYPE: XR chest 1V portable DATE OF EXAM: 12/02/2017 COMPARISON: Today HISTORY: Check line placement TECHNIQUE: Single frontal view of the chest is obtained. FINDINGS: There is endotracheal tube 4.5 cm from the elizabeth in fairly good position. There is [place] stric tube in good position. There is patchy pneumonic consolidation in the right lung. There are bhargavi st leads. I see no definite heart failure. Left lung is fairly clear. IMPRESSION: Tubing appears in good position. There is a right-sided pulmonary consolidation that is the same or increased compared to exam one hour ago. No heart failure seen. Normal heart.
[2017-12-02] MEDS ORDERED: PANTOPRAZOLE 40 MG/10 ML VIAL IVP STA (05:20)
[2017-12-02] MEDS ORDERED: SODIUM CHLORIDE 0.9% 1,000 ML IV ONE (05:20)
[2017-12-02] MEDS: SODIUM CHLORIDE 0.9% 1,000 ML IV SCH ×3 (06:13→18:45)
[2017-12-02] MEDS: IPRATROPIUM-ALBUTEROL 3 ML NEB INHALATION SCH ×4 (07:56→19:42)
[2017-12-02] MEDS ORDERED: MORPHINE SULFATE 4 MG/ML SYRINGE IVP STA (08:28)
[2017-12-02] MEDS ORDERED: NOREPINEPHRINE 4 MG in DEXTROSE 5% IN WATER 250 ML IV SCH ×2 (08:30)
[2017-12-02] MEDS ORDERED: FAMOTIDINE 20 MG/2 ML VIAL IV SCH (09:00)
--- NOTE | 2017-12-02 10:10 | P.CNPUL ---
History of Present Illness Consult date: 12/02/17 Reason for consult: hypoxemia, pneumonia, abnormal CXR/CT, other Chief complaint: Lethargy, abnormal labs, right lower lobe pneumonia, acute hypoxemic failur History of present illness: Mr. Hester is a 72-year-old white male patient from [facility], was brought to the emergency department on 12/01/2017 at 2219 by ambulance, for concerns of abnormal labs, namely abnormal renal profile and white blood cell count, and altered mentation. Patient was increasingly lethargic at the shelter. Patient does have dementia at his baseline. He was recently hospitalized from 10/31/2017 through 11/04/2017 for Enterococcus faecalis urinary tract infection, acute kidney injury. Patient had significant clinical improvement, received IV fluid hydration, renal profile had improved, creatinine was at 1.74 at discharge. In the emergency department patient was increasingly more lethargic, became hypoxemic, with pulse ox of 84%, febrile, with a temp of 10 1F, he went into atrial fibrillation with rapid ventricular response. He was then intubated and placed on mechanical ventilator. Initial chest x-ray showed airspace opacities within the lung bases, low lung volumes and atelectasis, pneumonia could not be excluded. Follow-up chest x-rays post intubation showed ET tube at 4.5 cm above the elizabeth, which showed patchy pneumonic consolidation in the right lung. This morning chest x-ray shows increasing right lower lobe consolidation. Labs showed mild leukocytosis WBC of 13.8, hemoglobin 11.9, INR 1.3, B1 of 97, creatinine is 2.6, lites were unremarkable, plasma lactic acid 3.2, CK-MB is 9.5, troponin 0.072, proBNP 2530 , urinalysis showed large amount of leukocyte esterase, pyuria, and red blood cells. Urine drug screen was negative. Patient has received a total of 2.5 L of 0.9 normal saline and fluid boluses, he remains on mechanical ventilator, sedated, currently on Diprivan and at 15 mics per kilo per minute, Cardizem drip is infusing at a rate of 5 mg per hour, 0.9 at 20 ML per hour. Current vent settings assist control mode with a rate of 16, tidal volume 500, FiO2 of 100% and PEEP of 5. Blood gas this morning's pO2 of 82, pCO2 45, pH of 7.35 is done on FiO2 100%. Blood cultures, sputum and urine cultures were ordered, and are pending at this time. Patient has a chronic indwelling catheter, history of urinary retention, benign prostatic hypertrophy, and previous history of sacral ulcer. Urine output is still marginal, has been a total of 500 mL of cloudy urine since patient's arrival to the emergency department last night. Blood pressures are marginal, currently at 19/53, with a mean of 68, patient is tachypneic, breathing at 26 breaths per minute, he needs to be adequately sedated. He received a dose of Levaquin and Zosyn, we're consulted in regards to right lower lobe pneumonia, critical care management Review of Systems Most information obtained from the nursing staff and the chart, patient is a sedated on mechanical ventilator, unable to provide history. All systems: negative Constitutional: Denies chills, Denies fever Eyes: denies blurred vision, denies pain Ears, nose, mouth and throat: Denies headache, Denies sore throat Cardiovascular: Denies chest pain, Denies shortness of breath Respiratory: Denies cough Gastrointestinal: Denies abdominal pain, Denies diarrhea, Denies nausea, Denies vomiting Musculoskeletal: Denies myalgias Integumentary: Denies pruritus, Denies rash Neurological: Denies numbness, Denies weakness Psychiatric: Denies anxiety, Denies depression Endocrine: Denies fatigue, Denies weight change Past Medical History Past Medical History: Dementia, Prostate Disorder, Renal Disease Additional Past Medical History / Comment(s): Pt and nephewStephen states pt has not been to a doctor for years. Pt is unsteady when first up at times. He has had decreasing memory and occasional confusion over the past 2-3 months and his gait has become shuffling. He is a and served in [place]. NephewStephen confirms pt probable had agent orange exposure. History of Any Multi-Drug Resistant Organisms: None Reported Past Surgical History: Appendectomy, Tonsillectomy Past Anesthesia/Blood Transfusion Reactions: No Reported Reaction Past Psychological History: Anxiety Smoking Status: Current some day smoker Past Alcohol Use History: None Reported Past Drug Use History: None Reported - Past Family History Father Family Medical History: Musculoskeletal Disorder, Neurologic Disorder Additional Family Medical History / Comment(s): Father had parkinson's. Mother Family Medical History: Cancer Additional Family Medical History / Comment(s): Unknown type of cancer. Medications and Allergies Home Medications Medication Instructions Recorded Confirmed Type Tamsulosin HCl [Flomax] 0.8 mg PO HS 10/31/17 12/02/17 History Acetaminophen Tab [Tylenol] 650 mg PO Q6HR PRN tab 11/04/17 12/02/17 Rx hydrALAZINE HCL [Apresoline] 25 mg PO BID tab 11/04/17 12/02/17 Rx Amino Acids/Protein Hydrolys 30 ml PO BID 12/02/17 12/02/17 History [Pro-Stat Supplement] Multivitamins, Thera [Multivitamin 1 tab PO DAILY 12/02/17 12/02/17 History (formulary)] Allergies Allergy/AdvReac Type Severity Reaction Status Date / Time No Known Allergies Allergy Verified 12/02/17 07:07 Physical Exam Vitals: Vital Signs Temp Pulse Resp BP Pulse Ox 12/02/17 09:00 96 21 98/53 100 12/02/17 08:44 99 24 113/53 100 12/02/17 08:06 98.9 F 111 H 31 H 81/47 100 12/02/17 08:05 100 12/02/17 07:56 103 H 12/02/17 07:43 101 H 12 115/59 100 12/02/17 07:06 124 H 12 108/68 100 12/02/17 06:36 99 28 H 114/52 100 12/02/17 06:00 118 H 32 H 158/67 100 12/02/17 04:48 130 H 16 140/56 98 12/02/17 04:10 180 H 30 H 130/74 91 L 12/02/17 03:51 139 H 29 H 140/63 85 L 12/02/17 03:17 147 H 30 H 162/65 84 L 12/02/17 01:34 142 H 20 110/51 87 L 12/02/17 01:00 156 H 20 162/60 88 L 12/02/17 00:10 101 F H 140 H 20 123/60 88 L 12/01/17 23:16 106 H 20 123/65 95 12/01/17 22:38 124 H 20 124/60 95 12/01/17 21:57 98.5 F 119 H 16 123/68 91 L Intake and Output 12/01/17 12/02/17 12/02/17 22:59 06:59 14:59 Intake Total 11.583 16.898 Output Total 1230 Balance -1218.417 16.898 Intake: Intake, IV Titration 11.583 16.898 Amount Diltiazem 50 mg In Sodium 11.583 Chloride 0.9% 40 ml @ 5 MG/HR 5 mls/hr IV .Q10H MIKE Rx#:[id number] Propofol 1,000 mg In 16.898 Empty Bag 1 bag @ Titrate IV .Q0M MIKE Rx#: [id number] Output: Gastric Drainage 730 Urine 500 Other: Weight 79.379 kg - Constitutional Sedated on mechanical ventilator General appearance: no acute distress, thin - EENT Eyes: EOMI ENT: NA/AT - Neck Neck: no lymphadenopathy Carotids: bilateral: upstroke normal Thyroid: bilateral: normal size - Respiratory Respiratory: bilateral: CTA - Cardiovascular Rhythm: irregularly irregular Heart sounds: normal: S1, S2 foot Peripheral Edema: bilateral: 1+ ankle Peripheral Edema: bilateral: Trace dorsalis pedis Peripheral Pulses: bilateral: Normal - Gastrointestinal General gastrointestinal: no organomegaly, soft, no tenderness - Integumentary Integumentary: normal turgor - Neurologic Sedated, on ventilator - Musculoskeletal Musculoskeletal: strength equal bilaterally Results - Laboratory Findings CBC and BMP: 12/01/17 22:13 12/01/17 22:13 ABG ABG pH 7.35 (7.35-7.45) 12/02/17 04:45 ABG pCO2 45 mmHg (35-45) 12/02/17 04:45 ABG pO2 82 mmHg (83-108) L 12/02/17 04:45 ABG O2 Saturation 95.8 % (94-97) 12/02/17 04:45 PT/INR, D-dimer PT 11.9 sec (9.0-12.0) 12/01/17 23:18 INR 1.3 (<1.2) H 12/01/17 23:18 Abnormal lab findings: Abnormal Labs 12/01/17 12/01/17 12/01/17 22:13 22:13 22:13 WBC 13.8 H RBC 3.99 L Hgb 11.9 L Hct 36.1 L RDW 15.9 H Neutrophils # (Manual) 12.50 H Lymphocytes # (Manual) 0.83 L INR ABG pO2 ABG Total CO2 BUN 97 H* Creatinine 2.60 H Glucose 243 H Plasma Lactic Acid Redd 3.2 H* Total Creatine Kinase CK-MB (CK-2) Troponin I Total Protein 5.3 L Albumin 2.8 L Urine pH Urine Protein Urine Blood Ur Leukocyte Esterase Urine RBC Urine WBC Urine WBC Clumps Urine Bacteria Urine Mucus 12/01/17 12/01/17 12/01/17 22:20 23:18 23:18 WBC RBC Hgb Hct RDW Neutrophils # (Manual) Lymphocytes # (Manual) INR 1.3 H ABG pO2 ABG Total CO2 BUN Creatinine Glucose Plasma Lactic Acid Redd Total Creatine Kinase 457 H CK-MB (CK-2) 9.5 H* Troponin I 0.072 H* Total Protein Albumin Urine pH 8.5 H Urine Protein 3+ H Urine Blood Moderate H Ur Leukocyte Esterase Large H Urine RBC 123 H Urine WBC >182 H Urine WBC Clumps Many H Urine Bacteria Occasional H Urine Mucus Occasional H 12/02/17 12/02/17 03:40 04:45 WBC RBC Hgb Hct RDW Neutrophils # (Manual) Lymphocytes # (Manual) INR ABG pO2 82 L ABG Total CO2 26 H BUN Creatinine Glucose Plasma Lactic Acid Redd 3.8 H* Total Creatine Kinase CK-MB (CK-2) Troponin I Total Protein Albumin Urine pH Urine Protein Urine Blood Ur Leukocyte Esterase Urine RBC Urine WBC Urine WBC Clumps Urine Bacteria Urine Mucus - Diagnostic Findings Chest x-ray: report reviewed, image reviewed Additional studies: EKG reviewed Assessment and Plan Plan: Assessment: #1. Acute hypoxemic respiratory failure secondary to right lower lobe pneumonia , possibly healthcare acquired, requiring intubation and mechanical ventilation #2. Acute urinary tract infection, sepsis #3. Acute kidney injury, secondary to above #4. Altered mental status, lethargy, secondary to sepsis #5. Lactic acidosis or graft #6. Elevated troponins #7. Recent hospitalization for Enterococcus faecalis urinary tract infection, and acute kidney injury #8. New onset atrial fibrillation with rapid ventricular response #9. Chronic indwelling catheter, for history of urinary retention, and history of a sacral wound #10. Underlying cognitive impairment, related to history of dementia #11. Resident of a shelter #12. History of BPH #13. History of nicotine dependence #14. Gait dysfunction Plan: We will adequately sedate the patient to synchronous with the mechanical ventilator, we'll give the patient additional 1 L bolus of 0.9 normal saline. We'll start levo fed for vasopressor support if need be. Continue Cardizem drip. Continue nebulized bronchodilators. Replace the Bhatt, cultures have been collected and sent, and are pending at this time, GI and DVT prophylaxis, continue current antibiotic coverage. Continue with current ventilator settings , wean FiO2 to keep O2 sat at 94 or above. Cardiology has been consulted, proBNP is elevated at 2530, 2-D echocardiogram has been ordered, we will repeat plasma lactic acid. Continue close hemodynamic monitoring, patient remains in atrial fibrillation, but the rate is better controlled, currently afebrile. Patient has been seen and evaluated by Dr. Edmondson, the attending shower maid. Patient is awaiting a bed in the intensive care I performed a history & physical examination of the patient and discussed their management with my nurse practitioner, Trina Connell. I reviewed the nurse practitioner's note and agree with the documented findings and plan of care. Lung sounds are clear, diminished at the bases. The findings and the impression was discussed with the patient. I attest to the documentation by the nurse practitioner. Critical care time is over 35 minutes Time with Patient: Greater than 30
[2017-12-02 14:59] LABS: Glucose,Whole Blood 152 mg/dL (75-99)
--- NOTE | 2017-12-02 15:15 | ECHOF ---
Referral Reason:LV function MEASUREMENTS -------- HEIGHT: 152.4 cm WEIGHT: 79.4 kg BP: 107/53 IVSd: 1.2 cm (0.6 - 1.1) LVIDd: 3.8 cm (3.9 - 5.3) LVPWd: 1.6 cm (0.6 - 1.1) IVSs: 1.2 cm LVIDs: 3.1 cm LVPWs: 1.5 cm LA Diam: 4.2 cm (2.7 - 3.8) RVIDd: 2.7 cm (< 3.3) LAESV Index (A-L): 44.63 ml/m Ao Diam: 3.6 cm (2.0 - 3.7) LA Diam: 4.1 cm (2.7 - 3.8) AV Cusp: 2.2 cm (1.5 - 2.6) EPSS: 0.4 cm MV E Yobani: 0.88 m/s MV DecT: 148 ms MV A Yobani: 0.76 m/s MV E/A Ratio: 1.16 RAP: 5.00 mmHg RVSP: 20.59 mmHg MV EF SLOPE: 169.87 mm/s (70 - 150) MV EXCURSION: 23.60 mm (> 18.000) FINDINGS -------- Atrial fibrillation. This was a technically adequate study. The left ventricular size is normal. There is borderline concentric left ventricular hypertrophy. Overall left ventricular systolic function is low-normal with, an EF between 50 - 55 %. The right ventricle is normal in size. The left atrial size is normal. LA is severely dilated >40 ml/m2 The right atrial size is normal. The aortic valve is trileaflet, and appears structurally normal. No aortic stenosis or regurgitation. Mild mitral annular calcification present. Mild mitral regurgitation is present. Mild tricuspid regurgitation present. There is no evidence of pulmonary hypertension. The right v entricular systolic pressure, as measured by Doppler, is 20.59mmHg. There is no pulmonic regurgitation present. The aortic root size is normal. There is no pericardial effusion. CONCLUSIONS -------- 1. The left ventricular size is normal. 2. There is borderline concentric left ventricular hypertrophy. 3. Overall left ventricular systolic function is low-normal with, an EF between 50 - 55 %. 4. The right ventricle is normal in size. 5. The left atrial size is normal. 6. LA is severely dilated >40 ml/m2 7. The right atrial size is normal. 8. The aortic valve is trileaflet, and appears structurally normal. No aortic stenosis or regurgitati on. 9. Mild mitral annular calcification present. 10. Mild mitral regurgitation is present. 11. Mild tricuspid regurgitation present. 12. There is no evidence of pulmonary hypertension. 13. The right ventricular systolic pressure, as measured by Doppler, is 20.59mmHg. 14. There is no pulmonic regurgitation present. 15. The aortic root size is normal. 16. There is no pericardial effusion. UNIVERSITY DEMONSTRATOR: Trini Case RDCS
[2017-12-02] MEDS ORDERED: VANCOMYCIN IV PER PHARMACY 1 EACH MISC MISCELLANE PRN (15:19)
[2017-12-02 15:53] LABS: ABG Base Excess -2.3 mmol/L; ABG HCO3 23 mmol/L (21-25); ABG Oxygen Saturation 93.8 % (94-97); ABG PCO2 39 mmHg (35-45); ABG PH 7.38 (7.35-7.45); ABG PO2 66 mmHg (83-108); ABG TCO2 24 mmol/L (19-24)
[2017-12-02] MEDS ORDERED: VANCOMYCIN 1,500 MG in SODIUM CHLORIDE 0.9% 250 ML IVPB ONE (16:00)
[2017-12-02] MEDS: PIPERACILLIN-TAZOBACTAM 3.375 GM in DEXTROSE/WATER 1 50ML.BAG IVPB SCH ×2 (16:03→20:22)
[2017-12-02] MEDS: NOREPINEPHRIN 16 MG-0.9%NS PMX 16 MG/250 ML ML IV SCH (17:56)
--- NOTE | 2017-12-02 18:02 | P.HPIM ---
History of Present Illness 72-year-old the was sent in from a large because of abnormal labs and patient was increasingly lethargic. Patient is found to have right lower lobe pneumonia possibly of aspiration cannot be ruled out patient was recently discharged from hospital he appears to have some baseline dementia patient was recently just treated for Enterococcus faecalis. Patient is pretty sick at this point of time and patient was subsequently intubated because of severe sepsis in patient is in septic shock requiring norepinephrine patient was also in atrial fibrillation was on Cardizem drip which will be discontinued because has heart rate is fairly controlled and patient is hypotensive. Patient is on propofol for sedation which is also contributing to hypotension patient is found to have leukocytosis patient hasn't unstageable decubitus ulcer doesn't appear to be infected does not appear to be contributing to his infection. Patient is on Zosyn, levofloxacin and vancomycin was added. Patient is on ventilatory support and negative restorer evaluated the patient as well patient will require a central line as well as an arterial line. Patient was febrile on admission with leukocytosis. Review of Systems Unable to obtain due to his clinical condition Past Medical History Past Medical History: Dementia, Prostate Disorder, Renal Disease Additional Past Medical History / Comment(s): Pt recently admitted to [facility] on with nonoliguric acute renal failure/acute UTI/hematuria/elevated phosphorus/moderate cognitive impairment. Other HX: Pt had not followed with a PCP for many years, Indwelling feng cath, [place] bilaterally, R buttock ulcer stage III, unsteady when first up, shuffling gait, BPH, contact dermatitis. History of Any Multi-Drug Resistant Organisms: None Reported Past Surgical History: Appendectomy, Tonsillectomy Additional Past Surgical History / Comment(s): Skin lesion removed from face. Past Anesthesia/Blood Transfusion Reactions: No Reported Reaction Smoking Status: Former smoker - Past Family History Father Family Medical History: Musculoskeletal Disorder, Neurologic Disorder Additional Family Medical History / Comment(s): Father had parkinson's. Mother Family Medical History: Cancer Additional Family Medical History / Comment(s): Unknown type of cancer. Medications and Allergies Home Medications Medication Instructions Recorded Confirmed Type Tamsulosin HCl [Flomax] 0.8 mg PO HS 10/31/17 12/02/17 History Acetaminophen Tab [Tylenol] 650 mg PO Q6HR PRN tab 11/04/17 12/02/17 Rx hydrALAZINE HCL [Apresoline] 25 mg PO BID tab 11/04/17 12/02/17 Rx Amino Acids/Protein Hydrolys 30 ml PO BID 12/02/17 12/02/17 History [Pro-Stat Supplement] Multivitamins, Thera [Multivitamin 1 tab PO DAILY 12/02/17 12/02/17 History (formulary)] Allergies Allergy/AdvReac Type Severity Reaction Status Date / Time No Known Allergies Allergy Verified 12/02/17 07:07 Physical Exam Vitals: Vital Signs Temp Pulse Resp BP Pulse Ox 12/02/17 17:15 85 20 12/02/17 17:00 82 17 12/02/17 14:20 98.6 F 84 18 109/56 100 12/02/17 13:00 98.7 F 85 16 110/56 99 12/02/17 11:46 102 H 12/02/17 11:40 99 12/02/17 11:00 93 20 108/54 100 12/02/17 09:00 96 21 98/53 100 12/02/17 08:44 99 24 113/53 100 12/02/17 08:06 98.9 F 111 H 31 H 81/47 100 12/02/17 08:05 100 12/02/17 07:56 103 H 12/02/17 07:43 101 H 12 115/59 100 12/02/17 07:06 124 H 12 108/68 100 12/02/17 06:36 99 28 H 114/52 100 12/02/17 06:00 118 H 32 H 158/67 100 12/02/17 04:48 130 H 16 140/56 98 12/02/17 04:10 180 H 30 H 130/74 91 L 12/02/17 03:51 139 H 29 H 140/63 85 L 12/02/17 03:17 147 H 30 H 162/65 84 L 12/02/17 01:34 142 H 20 110/51 87 L 12/02/17 01:00 156 H 20 162/60 88 L 12/02/17 00:10 101 F H 140 H 20 123/60 88 L 12/01/17 23:16 106 H 20 123/65 95 12/01/17 22:38 124 H 20 124/60 95 12/01/17 21:57 98.5 F 119 H 16 123/68 91 L Intake and Output 12/02/17 12/02/17 12/02/17 06:59 14:59 22:59 Intake Total 11.583 112.475 200.625 Output Total 1230 470 Balance -1218.417 -357.525 200.625 Intake: Intake, IV Titration 11.583 112.475 200.625 Amount Diltiazem 50 mg In Sodium 11.583 50 Chloride 0.9% 40 ml @ 5 MG/HR 5 mls/hr IV .Q10H [facility] Rx#:[id number] Norepinephrine 4 mg In 200.625 Dextrose 5% in Water 250 ml @ Titrate IV .Q0M [facility]KE Rx#:[id number] Propofol 1,000 mg In 62.475 Empty Bag 1 bag @ Titrate IV .Q0M MIKE Rx#: [id number] Output: Gastric Drainage 730 20 Urine 500 450 Other: Voiding Method Indwelling Catheter PHYSICAL EXAMINATION: GENERAL: Patient is intubated sedated, please refer to pulmonology dictation for further details of and setting HEENT: Pupils are round and equally reacting to light. EOMI. No scleral icterus. No conjunctival pallor. Normocephalic, atraumatic. No pharyngeal erythema. No thyromegaly. CARDIOVASCULAR: S1 and S2 present. No murmurs, rubs, or gallops. PULMONARY: Chest is clear to auscultation, no wheezing or crackles. ABDOMEN: Soft, nontender, nondistended, normoactive bowel sounds. No palpable organomegaly. MUSCULOSKELETAL: No joint swelling or deformity. EXTREMITIES: No cyanosis, clubbing, or pedal edema. NEUROLOGICAL: Patient is sedated at this time SKIN: No rashes. Results CBC & Chem 7: 12/01/17 22:13 12/01/17 22:13 Labs: Abnormal Lab Results - Last 24 Hours (Table) 12/01/17 12/01/17 12/01/17 Range/Units 22:13 22:13 22:13 WBC 13.8 H (3.8-10.6) k/uL RBC 3.99 L (4.30-5.90) m/uL Hgb 11.9 L (13.0-17.5) gm/dL Hct 36.1 L (39.0-53.0) % RDW 15.9 H (11.5-15.5) % Neutrophils # (Manual) 12.50 H (1.3-7.7) k/uL Lymphocytes # (Manual) 0.83 L (1.0-4.8) k/uL INR (<1.2) ABG pO2 (83-108) mmHg ABG Total CO2 (19-24) mmol/L ABG O2 Saturation (94-97) % BUN 97 H* (9-20) mg/dL Creatinine 2.60 H (0.66-1.25) mg/dL Glucose 243 H (74-99) mg/dL POC Glucose (mg/dL) (75-99) mg/dL Plasma Lactic Acid Redd 3.2 H* (0.7-2.0) mmol/L Total Creatine Kinase (55-170) U/L CK-MB (CK-2) (0.0-2.4) ng/mL Troponin I (0.000-0.034) ng/mL Total Protein 5.3 L (6.3-8.2) g/dL Albumin 2.8 L (3.5-5.0) g/dL Urine pH (5.0-8.0) Urine Protein (Negative) Urine Blood (Negative) Ur Leukocyte Esterase (Negative) Urine RBC (0-5) /hpf Urine WBC (0-5) /hpf Urine WBC Clumps (None) /hpf Urine Bacteria (None) /hpf Urine Mucus (None) /hpf 12/01/17 12/01/17 12/01/17 Range/Units 22:20 23:18 23:18 WBC (3.8-10.6) k/uL RBC (4.30-5.90) m/uL Hgb (13.0-17.5) gm/dL Hct (39.0-53.0) % RDW (11.5-15.5) % Neutrophils # (Manual) (1.3-7.7) k/uL Lymphocytes # (Manual) (1.0-4.8) k/uL INR 1.3 H (<1.2) ABG pO2 (83-108) mmHg ABG Total CO2 (19-24) mmol/L ABG O2 Saturation (94-97) % BUN (9-20) mg/dL Creatinine (0.66-1.25) mg/dL Glucose (74-99) mg/dL POC Glucose (mg/dL) (75-99) mg/dL Plasma Lactic Acid Redd (0.7-2.0) mmol/L Total Creatine Kinase 457 H (55-170) U/L CK-MB (CK-2) 9.5 H* (0.0-2.4) ng/mL Troponin I 0.072 H* (0.000-0.034) ng/mL Total Protein (6.3-8.2) g/dL Albumin (3.5-5.0) g/dL Urine pH 8.5 H (5.0-8.0) Urine Protein 3+ H (Negative) Urine Blood Moderate H (Negative) Ur Leukocyte Esterase Large H (Negative) Urine RBC 123 H (0-5) /hpf Urine WBC >182 H (0-5) /hpf Urine WBC Clumps Many H (None) /hpf Urine Bacteria Occasional H (None) /hpf Urine Mucus Occasional H (None) /hpf 12/02/17 12/02/17 12/02/17 Range/Units 03:40 04:45 10:55 WBC (3.8-10.6) k/uL RBC (4.30-5.90) m/uL Hgb (13.0-17.5) gm/dL Hct (39.0-53.0) % RDW (11.5-15.5) % Neutrophils # (Manual) (1.3-7.7) k/uL Lymphocytes # (Manual) (1.0-4.8) k/uL INR (<1.2) ABG pO2 82 L (83-108) mmHg ABG Total CO2 26 H (19-24) mmol/L ABG O2 Saturation (94-97) % BUN (9-20) mg/dL Creatinine (0.66-1.25) mg/dL Glucose (74-99) mg/dL POC Glucose (mg/dL) (75-99) mg/dL Plasma Lactic Acid Redd 3.8 H* 2.3 H* (0.7-2.0) mmol/L Total Creatine Kinase (55-170) U/L CK-MB (CK-2) (0.0-2.4) ng/mL Troponin I (0.000-0.034) ng/mL Total Protein (6.3-8.2) g/dL Albumin (3.5-5.0) g/dL Urine pH (5.0-8.0) Urine Protein (Negative) Urine Blood (Negative) Ur Leukocyte Esterase (Negative) Urine RBC (0-5) /hpf Urine WBC (0-5) /hpf Urine WBC Clumps (None) /hpf Urine Bacteria (None) /hpf Urine Mucus (None) /hpf 12/02/17 12/02/17 12/02/17 Range/Units 14:44 14:58 15:51 WBC (3.8-10.6) k/uL RBC (4.30-5.90) m/uL Hgb (13.0-17.5) gm/dL Hct (39.0-53.0) % RDW (11.5-15.5) % Neutrophils # (Manual) (1.3-7.7) k/uL Lymphocytes # (Manual) (1.0-4.8) k/uL INR (<1.2) ABG pO2 66 L (83-108) mmHg ABG Total CO2 (19-24) mmol/L ABG O2 Saturation 93.8 L (94-97) % BUN (9-20) mg/dL Creatinine (0.66-1.25) mg/dL Glucose (74-99) mg/dL POC Glucose (mg/dL) 152 H (75-99) mg/dL Plasma Lactic Acid Redd 3.0 H* (0.7-2.0) mmol/L Total Creatine Kinase (55-170) U/L CK-MB (CK-2) (0.0-2.4) ng/mL Troponin I (0.000-0.034) ng/mL Total Protein (6.3-8.2) g/dL Albumin (3.5-5.0) g/dL Urine pH (5.0-8.0) Urine Protein (Negative) Urine Blood (Negative) Ur Leukocyte Esterase (Negative) Urine RBC (0-5) /hpf Urine WBC (0-5) /hpf Urine WBC Clumps (None) /hpf Urine Bacteria (None) /hpf Urine Mucus (None) /hpf Microbiology - Last 24 Hours (Table) 12/01/17 22:20 Urine Culture - Preliminary Urine,Catheterized 12/02/17 04:31 Sputum Culture - Preliminary Sputum Thrombosis Risk Factor Assmnt - Choose All That Apply Any of the Below Risk Factors Present?: Yes Each Factor Represents 1 point: Medical pt on bed rest, Sepsis (< 1month), Serious lung disease incl. pneumonia (< 1month) Other Risk Factors: Yes Each Risk Factor Represents 2 Points: Age 61-74 years, Patient confined to bed Other congenital or acquired thrombophilia - If yes, enter type in comment: No Thrombosis Risk Factor Assessment Total Risk Factor Score: 7 Thrombosis Risk Factor Assessment Level: High Risk Assessment and Plan Plan: -Septic shock possibly secondary to right lower lobe pneumonia is her healthcare associated or aspiration pneumonia patient is an above-mentioned antibiotics sputum cultures and blood cultures are pending. Patient received 5 L of bolus of IV fluids and lactic acid remains at 3 will order one more bolus of IV fluids and patient will be continued on 100 mL of normal saline. Patient is critically ill. Guarded condition -Acute hypoxic respiratory failure secondary to sepsis as mentioned above -Acute renal failure secondary to acute tubular necrosis IV fluids as mentioned above and patient is also requiring norepinephrine -Atrial fibrillation: Precipitated by sepsis and new onset cardiology was consulted anticoagulation as per the recommendations, Cardizem will be discontinued because of hypotension patient heart rate is reasonably controlled. Obtain 2-D echocardiogram -Chronic Feng catheter -Benign prostatic hypertrophy -Deconditioning with the possibility of dementia baseline
[2017-12-02 18:45] LABS: Calcium 7.2 mg/dL (8.4-10.2); Magnesium 1.9 mg/dL (1.6-2.3); Phosphorus 3.7 mg/dL (2.5-4.5); Potassium 4.1 mmol/L (3.5-5.1)
[2017-12-02 19:38] LABS: HCT 28.7 % (39.0-53.0); MCH 29.1 pg (25.0-35.0); MCHC 31.9 g/dL (31.0-37.0); MCV 91.3 fL (80.0-100.0); Mean Platelet Volume 7.7; Platelet Count 221 k/uL (150-450); RBC 3.14 m/uL (4.30-5.90); RDW 15.8 % (11.5-15.5); WBC 12.5 k/uL (3.8-10.6)
[2017-12-02 19:41] LABS: HGB 9.2 gm/dL (13.0-17.5)
[2017-12-02 20:11] LABS: Lymphocytes # (M) 0.38 k/uL (1.0-4.8); Metamyelocytes # (M) 0.25 k/uL (0); Metamyelocytes % 2 %; Monocytes # (M) 0.25 k/uL (0-1.0); Nucleated Red Blood Cells 0 /100 WBC (0-0); Total Cells Counted 200
[2017-12-02 20:12] LABS: Dohle Bodies Present
[2017-12-02 20:14] LABS: Band Neutrophils % 50 %; Neutrophils % (M) 44 %
[2017-12-02 20:19] LABS: Glucose,Whole Blood 214 mg/dL (75-99)
[2017-12-02] MEDS: CHLORHEXIDINE GLUCONATE 15 ML CUP MUCOUS MEM SCH (20:20)
[2017-12-02] MEDS: INSULIN ASPART 100 UNIT/ML 1 ML 10 ML VIAL SQ SCH (20:20)
[2017-12-02] MEDS: HEPARIN SODIUM,PORCINE 5,000 UNIT/ML 1 ML VIAL SQ SCH (23:22)
[2017-12-03 00:25] LABS: Glucose,Whole Blood 253 mg/dL (75-99)
[2017-12-03] MEDS: INSULIN ASPART 100 UNIT/ML 1 ML 10 ML VIAL SQ SCH ×4 (00:30→19:06)
[2017-12-03] MEDS: SODIUM CHLORIDE 0.9% 1,000 ML IV SCH ×4 (00:31→21:15)
[2017-12-03] MEDS: PROPOFOL 1,000 MG in EMPTY BAG 1 BAG IV SCH ×2 (02:00→07:12)
[2017-12-03 02:19] LABS: Hemoglobin A1C 6.3 % (4.0-6.0)
[2017-12-03] MEDS: PIPERACILLIN-TAZOBACTAM 3.375 GM in DEXTROSE/WATER 1 50ML.BAG IVPB SCH ×3 (04:25→21:08)
[2017-12-03] MEDS: NOREPINEPHRIN 16 MG-0.9%NS PMX 16 MG/250 ML ML IV SCH ×2 (04:26→21:53)
[2017-12-03 04:27] LABS: HCT 29.8 % (39.0-53.0); HGB 9.3 gm/dL (13.0-17.5); Hypochromasia Slight; MCH 28.9 pg (25.0-35.0); MCHC 31.3 g/dL (31.0-37.0); MCV 92.2 fL (80.0-100.0); Mean Platelet Volume 7.6; Platelet Count 253 k/uL (150-450); RBC 3.23 m/uL (4.30-5.90); RDW 15.7 % (11.5-15.5); WBC 15.9 k/uL (3.8-10.6)
[2017-12-03 04:39] LABS: Albumin 2.1 g/dL (3.5-5.0); Calcium 7.6 mg/dL (8.4-10.2); Magnesium 2.2 mg/dL (1.6-2.3); Phosphorus 3.1 mg/dL (2.5-4.5); Potassium 3.6 mmol/L (3.5-5.1); Total Bilirubin 0.3 mg/dL (0.2-1.3); Total Protein 4.3 g/dL (6.3-8.2)
[2017-12-03] MEDS ORDERED: Potassium Replacement Protocol 1 EACH MISC MISCELLANE PRN ×2 (04:48→22:12)
[2017-12-03] MEDS ORDERED: POTASSIUM BICARBONATE/CIT AC 20 MEQ TABLET.EFF NG-TUBE SCH (05:00)
[2017-12-03 05:45] LABS: Glucose,Whole Blood 171 mg/dL (75-99)
[2017-12-03] MEDS ORDERED: LEVOFLOXACIN 750MG-D5W PMX 750 MG in DEXTROSE/WATER 1 150ML.BAG IVPB SCH (06:00)
[2017-12-03] MEDS ORDERED: VANCOMYCIN 1,500 MG in SODIUM CHLORIDE 0.9% 250 ML IVPB SCH (06:00)
[2017-12-03 07:15] LABS: ABG Base Excess -1.4 mmol/L; ABG HCO3 23 mmol/L (21-25); ABG Oxygen Saturation 99.1 % (94-97); ABG PCO2 38 mmHg (35-45); ABG PO2 116 mmHg (83-108); ABG TCO2 25 mmol/L (19-24)
[2017-12-03] MEDS: IPRATROPIUM-ALBUTEROL 3 ML NEB INHALATION SCH ×4 (07:16→19:46)
--- NOTE | 2017-12-03 07:45 | P.CRDCN ---
History of Present Illness Consult date: 12/03/17 Chief complaint: Shortness of breath History of present illness: This is a 72-year-old gentleman who I was asked to see for further cardiac evaluation of atrial fibrillation with RVR. The patient currently is intubated and he is on ventilator. The history was taken from the chart as well as from the nurse taking care of the patient. Apparently the patient was hospitalized recently for urinary tract infection and he was discharged into an extended- care facility in stable medical condition. He was brought to the emergency room on 12/01/2017 by ambulance from the extended care facility with a change in mental status and increasing lethargy was noticed by the nurse over there. Beside that the patient does have dementia at his baseline. Emergency department the patient was more lethargic and became hypoxic with a pulse oximetry of 84% and he was febrile with a temperature of more than 100 Fahrenheit. Beside that in the emergency department the patient went into an A. fib with RVR and was started on Cardizem drip and converted to normal sinus mechanism after that. In the ER the patient was intubated and placed on mechanical ventilator. Initial chest x-ray showed opacities within the lung base consistent with a pneumonia. The patient was admitted with pneumonia/ sepsis and he was started on antibiotic. The patient also was found to be in acute renal failure with a creatinine of 2.6 when he presented to the hospital currently the creatinine is 1.9. The patient continues to be hemodynamically unstable and he is on vasopressors. The Cardizem IV was stopped because of the hemodynamic instability. The hemoglobin this morning is around 9 which dropped from 12 which is his baseline. I am concerned about ongoing bleeding. Because of that I decided to hold any kind of anticoagulation. Also the troponin is a slightly elevated but less than 1. No history of coronary artery disease or congestive heart failure or cardiac arrhythmia. During this admission the patient underwent an echocardiogram which revealed normal LV function without any significant valvular abnormalities. Past Medical History Past Medical History: Dementia, Prostate Disorder, Renal Disease Additional Past Medical History / Comment(s): Pt recently admitted to [facility] on with nonoliguric acute renal failure/acute UTI/hematuria/elevated phosphorus/moderate cognitive impairment. Other HX: Pt had not followed with a PCP for many years, Indwelling feng cath, ONONDAGA bilaterally, R buttock ulcer stage III, unsteady when first up, shuffling gait, BPH, contact dermatitis. History of Any Multi-Drug Resistant Organisms: None Reported Past Surgical History: Appendectomy, Tonsillectomy Additional Past Surgical History / Comment(s): Skin lesion removed from face. Past Anesthesia/Blood Transfusion Reactions: No Reported Reaction Smoking Status: Former smoker - Past Family History Father Family Medical History: Musculoskeletal Disorder, Neurologic Disorder Additional Family Medical History / Comment(s): Father had parkinson's. Mother Family Medical History: Cancer Additional Family Medical History / Comment(s): Unknown type of cancer. Medications and Allergies Home Medications Medication Instructions Recorded Confirmed Type Tamsulosin HCl [Flomax] 0.8 mg PO HS 10/31/17 12/02/17 History Acetaminophen Tab [Tylenol] 650 mg PO Q6HR PRN tab 11/04/17 12/02/17 Rx hydrALAZINE HCL [Apresoline] 25 mg PO BID tab 11/04/17 12/02/17 Rx Amino Acids/Protein Hydrolys 30 ml PO BID 12/02/17 12/02/17 History [Pro-Stat Supplement] Multivitamins, Thera [Multivitamin 1 tab PO DAILY 12/02/17 12/02/17 History (formulary)] Allergies Allergy/AdvReac Type Severity Reaction Status Date / Time No Known Allergies Allergy Verified 12/02/17 07:07 Physical Exam Vitals: Vital Signs Temp Pulse Resp BP Pulse Ox 12/03/17 07:19 79 12/03/17 07:00 83 22 100 12/03/17 06:50 80 22 100 12/03/17 06:40 99 22 100 12/03/17 06:30 79 23 100 12/03/17 06:20 79 22 100 12/03/17 06:10 80 23 100 12/03/17 06:00 79 23 100 12/03/17 05:50 82 23 100 12/03/17 05:40 80 22 100 12/03/17 05:30 79 22 100 12/03/17 05:20 82 22 100 12/03/17 05:10 86 22 100 12/03/17 05:00 79 23 100 12/03/17 04:50 75 24 99 12/03/17 04:40 77 23 100 12/03/17 04:30 79 23 99 12/03/17 04:20 80 23 99 07/17/18 04:10 81 23 100 07/17/18 04:00 98.7 F 80 20 99 07/17/18 03:50 81 23 99 07/17/18 03:40 82 20 100 07/17/18 03:30 80 19 100 07/17/18 03:20 81 23 99 07/17/18 03:10 82 22 100 07/17/18 03:00 85 19 99 07/17/18 02:50 87 20 100 07/17/18 02:40 80 22 99 07/17/18 02:30 82 20 100 07/17/18 02:20 84 20 99 07/17/18 02:10 81 22 100 07/17/18 02:00 81 23 100 07/17/18 01:50 81 22 99 07/17/18 01:40 80 22 99 07/17/18 01:30 88 23 100 07/17/18 01:20 81 20 99 07/17/18 01:10 79 23 99 07/17/18 01:00 78 23 99 07/17/18 00:50 80 22 99 07/17/18 00:40 79 23 99 07/17/18 00:30 80 23 99 07/17/18 00:20 77 22 98 07/17/18 00:10 79 22 98 07/17/18 00:00 98.7 F 81 22 99 07/16/18 23:50 82 20 98 07/16/18 23:40 85 22 07/16/18 23:30 85 22 99 07/16/18 23:20 78 22 98 07/16/18 23:10 77 22 98 07/16/18 23:03 82 24 98 07/16/18 23:00 79 22 98 07/16/18 22:50 81 23 99 07/16/18 22:40 79 22 98 07/16/18 22:30 81 20 98 07/16/18 22:20 80 23 98 07/16/18 22:10 81 20 110/58 99 07/16/18 22:00 82 22 110/58 99 07/16/18 21:50 85 22 110/58 99 07/16/18 21:40 79 21 110/58 99 07/16/18 21:30 85 21 110/58 99 07/16/18 21:20 90 21 110/58 99 07/16/18 21:10 84 20 110/58 99 07/16/18 21:00 81 22 110/58 100 07/16/18 20:50 82 22 110/58 99 07/16/18 20:40 84 16 99 07/16/18 20:30 89 16 99 07/16/18 20:20 81 16 110/58 100 07/16/18 20:10 82 16 99 07/16/18 20:00 99.2 F 78 16 99 07/16/18 19:56 82 21 07/16/18 19:50 78 15 100 07/16/18 19:42 81 18 07/16/18 19:40 79 21 99 07/16/18 19:30 79 20 99 07/16/18 19:20 80 20 98 07/16/18 19:10 78 21 98 07/16/18 19:00 82 19 98 07/16/18 18:50 78 18 98 07/16/18 18:40 80 19 99 07/16/18 18:30 80 17 98 07/16/18 18:20 80 20 96 07/16/18 18:10 80 18 93/51 98 07/16/18 18:00 82 19 93/51 98 07/16/18 17:50 97 20 93/51 96 07/16/18 17:40 79 20 93/51 98 07/16/18 17:30 79 19 93/51 98 07/16/18 17:20 79 19 93/51 98 07/16/18 17:15 85 20 07/16/18 17:10 77 16 93/51 99 07/16/18 17:00 82 17 93/51 93 L 07/16/18 16:50 81 18 93/51 95 07/16/18 16:40 79 20 93/51 91 L 07/16/18 16:30 81 20 93/51 93 L 07/16/18 16:20 79 20 93/51 87 L 07/16/18 16:10 85 24 96/61 94 L 07/16/18 16:00 80 17 90/45 96 07/16/18 15:50 79 17 83/46 95 07/16/18 15:40 83 19 78/43 97 07/16/18 15:30 80 20 77/45 96 07/16/18 15:20 87 28 H 80/47 97 12/02/17 15:10 77 19 67/47 100 12/02/17 15:00 83 21 67/47 97 12/02/17 14:50 84 23 74/50 98 12/02/17 14:42 74/50 12/02/17 14:30 118/71 12/02/17 14:20 98.6 F 84 18 118/71 100 12/02/17 14:10 118/71 12/02/17 14:00 118/71 12/02/17 13:56 118/71 12/02/17 13:00 98.7 F 85 16 110/56 99 12/02/17 11:46 102 H 12/02/17 11:40 99 12/02/17 11:00 93 20 108/54 100 12/02/17 09:00 96 21 98/53 100 12/02/17 08:44 99 24 113/53 100 12/02/17 08:06 98.9 F 111 H 31 H 81/47 100 12/02/17 08:05 100 12/02/17 07:56 103 H 12/02/17 07:43 101 H 12 115/59 100 Intake and Output 12/02/17 12/03/17 12/03/17 22:59 06:59 14:59 Intake Total 2560.295 1801.094 93.213 Output Total 600 1075 Balance 1960.295 726.094 93.213 Intake: IV 2237.5 1487.5 Piperacillin-Tazobactam 3 62.5 12.5 .375 gm In Dextrose/Water 1 50ml.bag @ 12.5 mls/hr IVPB Q8H [facility] Rx#: [id number] Sodium Chloride 0.9% 1, 800 1350 000 ml @ 150 mls/hr IV . Q6H40M [facility] Rx#:[id number] Sodium Chloride 0.9% 1, 1000 500 ml @ 999 mls/hr IV . Q1H31M [facility] Rx#:[id number] Vancomycin 1,500 mg In 375 125 Sodium Chloride 0.9% 250 ml @ 125 mls/hr IVPB Q48H [facility] Rx#:[id number] Intake, IV Titration 322.795 313.594 93.213 Amount Norepinephrin 16 mg-0.9% 79.687 213.861 4.813 Ns Pmx 16 mg In 250 ml @ Titrate IV .Q0M [facility] Rx#: [id number] Norepinephrine 4 mg In 200.625 Dextrose 5% in Water 250 ml @ Titrate IV .Q0M [facility] Rx#:[id number] Propofol 1,000 mg In 42.483 99.733 88.4 Empty Bag 1 bag @ Titrate IV .Q0M [facility] Rx#: [id number] Output: Urine 600 1075 Other: Voiding Method Indwelling Catheter Indwelling Catheter Weight 75.4 kg ABP, PAP, CO, CI - Last 8 Hours Arterial Blood Pressure 125/64 Arterial Blood Pressure 99/54 Arterial Blood Pressure 113/54 Arterial Blood Pressure 107/56 Arterial Blood Pressure 107/56 Arterial Blood Pressure 113/59 Arterial Blood Pressure 114/60 Arterial Blood Pressure 100/59 Arterial Blood Pressure 102/56 Arterial Blood Pressure 114/62 Arterial Blood Pressure 130/68 Arterial Blood Pressure 127/69 Arterial Blood Pressure 105/57 Arterial Blood Pressure 101/56 Arterial Blood Pressure 111/59 Arterial Blood Pressure 107/57 Arterial Blood Pressure 120/57 Arterial Blood Pressure 111/59 Arterial Blood Pressure 120/62 Arterial Blood Pressure 109/60 Arterial Blood Pressure 108/58 Arterial Blood Pressure 111/60 Arterial Blood Pressure 113/60 Arterial Blood Pressure 115/60 Arterial Blood Pressure 115/61 Arterial Blood Pressure 110/61 Arterial Blood Pressure 109/60 Arterial Blood Pressure 112/60 Arterial Blood Pressure 114/61 Arterial Blood Pressure 110/60 Arterial Blood Pressure 107/59 Arterial Blood Pressure 108/60 Arterial Blood Pressure 114/61 Arterial Blood Pressure 123/64 Arterial Blood Pressure 115/61 Arterial Blood Pressure 111/60 Arterial Blood Pressure 112/60 Arterial Blood Pressure 108/59 Arterial Blood Pressure 106/59 Arterial Blood Pressure 102/57 Arterial Blood Pressure 112/61 Arterial Blood Pressure 108/59 Arterial Blood Pressure 109/61 Arterial Blood Pressure 118/68 Arterial Blood Pressure 121/62 - Constitutional General appearance: no acute distress - Respiratory Respiratory: bilateral: diminished - Cardiovascular Rhythm: regular Heart sounds: normal: S1, S2 Results 12/03/17 04:00 12/03/17 04:00 Cardiac Enzymes 12/03/17 Range/Units 04:00 AST 63 H (17-59) U/L CBC 12/02/17 12/03/17 Range/Units 18:15 04:00 WBC 12.5 H 15.9 H (3.8-10.6) k/uL RBC 3.14 L 3.23 L (4.30-5.90) m/uL Hgb 9.2 L D 9.3 L (13.0-17.5) gm/dL Hct 28.7 L 29.8 L (39.0-53.0) % Plt Count 221 253 (150-450) k/uL Comprehensive Metabolic Panel 12/02/17 12/03/17 Range/Units 18:15 04:00 Sodium 143 144 (137-145) mmol/L Potassium 4.1 3.6 (3.5-5.1) mmol/L Chloride 113 H 114 H (98-107) mmol/L Carbon Dioxide 24 24 (22-30) mmol/L BUN 80 H* 68 H (9-20) mg/dL Creatinine 2.00 H 1.90 H (0.66-1.25) mg/dL Glucose 239 H 192 H (74-99) mg/dL Calcium 7.2 L 7.6 L (8.4-10.2) mg/dL AST 63 H (17-59) U/L ALT 44 (21-72) U/L Alkaline Phosphatase 68 (38-126) U/L Total Protein 4.3 L (6.3-8.2) g/dL Albumin 2.1 L (3.5-5.0) g/dL Current Medications Generic Name Dose Route Start Last Admin Trade Name Freq PRN Reason Stop Dose Admin Acetaminophen 650 mg 12/02/17 04:40 12/02/17 08:22 Tylenol Suppository RECTAL 650 mg Q4HR PRN Administration Fever And/ Or Mild Pain Acetaminophen 650 mg 12/02/17 04:40 Tylenol Tab PO Q4HR PRN Fever and/or Mild Pain Albuterol/Ipratropium 3 ml 12/02/17 08:00 12/03/17 07:16 Duoneb 0.5 Mg-3 Mg/3 Ml Soln INHALATION 3 ml RT-QID [facility] Administration Chlorhexidine Gluconate 15 ml 12/02/17 21:00 12/02/17 20:20 Peridex MUCOUS MEM 15 ml BID [facility] Administration Heparin Sodium (Porcine) 5,000 unit 12/03/17 00:00 12/02/17 23:22 Heparin SQ 5,000 unit Q8HR [facility] Administration Sodium Chloride 1,000 mls @ 150 mls/hr 12/02/17 04:45 12/03/17 07:14 Saline 0.9% IV 150 mls/hr .Q6H40M [facility] Administration Levofloxacin 750 mg/ IV 150 mls @ 100 mls/hr 12/03/17 06:00 12/03/17 05:03 Solution IVPB 100 mls/hr Q48H [facility] Administration Piperacillin/Tazobactam/ 50 mls @ 12.5 mls/hr 12/02/17 13:00 12/03/17 04:25 Dextrose 3.375 gm/ IV Solution IVPB 12.5 mls/hr Q8H [facility] Administration Propofol 1,000 mg/ IV Solution 100 mls @ 0 mls/hr 12/02/17 04:15 12/03/17 07: 12 IV 35.69 mcg/kg/min .Q0M [facility] 17 mls/hr Administration Protocol Titrate Vancomycin HCl 1,500 mg/ 250 mls @ 125 mls/hr 12/03/17 06:00 12/03/17 05:33 Sodium Chloride IVPB 125 mls/hr Q48H [facility] Administration Norepinephrine Bitartrate 16 mg in 250 mls @ 0 mls/hr 12/02/17 17:15 07:10 Levophed-0.9% Nacl 16 Mg/250ml Pmx IV 10 mcg/min .Q0M [facility] 9.375 mls/hr Titration Protocol Titrate Insulin Aspart 0 unit 12/02/17 19:00 12/03/17 05:50 Novolog SQ 6 unit Q6H [facility] Administration Protocol Miscellaneous Information 1 each 12/02/17 04:44 Pneumonia Protocol Utilized PO ONCE PRN Per Protocol Miscellaneous Information 1 each 12/03/17 04:48 Potassium Per Protocol MISCELLANE DAILY PRN Per Protocol Protocol Morphine Sulfate 2 mg 12/02/17 04:40 Morphine Sulfate (Inj) IV Q2HR PRN Pain Scale 4 to 5 Multi-Ingred Cream/Lotion/Oil/Oint 1 applic 12/02/17 04:40 Lubrifresh Pm Ointment BOTH EYES Q4HR PRN Dry Eye(s) Naloxone HCl 0.2 mg 12/02/17 04:40 Narcan IV Q2M PRN Opioid Reversal Pantoprazole Sodium 40 mg 12/03/17 09:00 Protonix IVP DAILY [facility] Intake and Output 12/02/17 12/03/17 12/03/17 22:59 06:59 14:59 Intake Total 2560.295 1801.094 93.213 Output Total 600 1075 Balance 1960.295 726.094 93.213 Intake: IV 2237.5 1487.5 Piperacillin-Tazobactam 3 62.5 12.5 .375 gm In Dextrose/Water 1 50ml.bag @ 12.5 mls/hr IVPB Q8H [facility] Rx#: [id number] Sodium Chloride 0.9% 1, 800 1350 000 ml @ 150 mls/hr IV . Q6H40M [facility] Rx#:[id number] Sodium Chloride 0.9% 1, 1000 500 ml @ 999 mls/hr IV . Q1H31M [facility] Rx#:[id number] Vancomycin 1,500 mg In 375 125 Sodium Chloride 0.9% 250 ml @ 125 mls/hr IVPB Q48H [facility] Rx#:[id number] Intake, IV Titration 322.795 313.594 93.213 Amount Norepinephrin 16 mg-0.9% 79.687 213.861 4.813 Ns Pmx 16 mg In 250 ml @ Titrate IV .Q0M [facility] Rx#: [id number] Norepinephrine 4 mg In 200.625 Dextrose 5% in Water 250 ml @ Titrate IV .Q0M [facility] Rx#:[id number] Propofol 1,000 mg In 42.483 99.733 88.4 Empty Bag 1 bag @ Titrate IV .Q0M [facility] Rx#: [id number] Output: Urine 600 1075 Other: Voiding Method Indwelling Catheter Indwelling Catheter Weight 75.4 kg 12/03/17 04:00 12/03/17 04:00 Assessment and Plan Assessment: Assessment #1 pneumonia/sepsis. #2 acute hypoxic respiratory failure secondary to the above #3 acute renal failure which is improving #4 paroxysmal atrial fibrillation #5 multiple comorbid conditions including anemia. Plan #1 continue the hemodynamic support using vasopressors. #2 the abnormal cardiac enzymes is likely related to the hemodynamic instability as well as hypoxemia as well as acute renal failure #3 getting his current status I would consider a conservative medical approach and medical treatment only. #4 I would hold any kind of antiplatelet and anticoagulation at this point regarding the non-STEMI and atrial fibrillation to limit sure there is no issue with a bleeding #5 the echocardiogram was reviewed and revealed normal LV function #6 the patient currently has been maintaining normal sinus mechanism. If he developed any more A. fib I would consider starting him on amiodarone was bolus and lucina Thank you for allowing us participate in his care and we'll continue following up with him
[2017-12-03] MEDS ORDERED: DEXTROSE 5% IN WATER 100 ML with AMIODARONE 150 MG IV ONE (07:46)
[2017-12-03] MEDS ORDERED: AMIODARONE 450 MG in DEXTROSE 5% IN WATER 250 ML IV SCH ×2 (07:47)
[2017-12-03 08:09] LABS: Band Neutrophils % 8 %; Lymphocytes # (M) 0.32 k/uL (1.0-4.8); Monocytes # (M) 0.32 k/uL (0-1.0); Neutrophils % (M) 88 %; Nucleated Red Blood Cells 0 /100 WBC (0-0); Total Cells Counted 100
--- NOTE | 2017-12-03 08:23 | XR ---
EXAMINATION TYPE: XR chest 1V portable DATE OF EXAM: 12/03/2017 Comparison: 12/02/2017 Clinical History: 72-year-old male Tube placement Findings: Heart normal size. Aorta within normal limits. Patchy airspace opacity throughout the right lung is l ess confluent at the right base. No significant pleural effusion. Satisfactory ET tube. NG tube is in place. Impression: Continued airspace disease throughout the right lung though opacity is improving and less confluent a t the right base.
[2017-12-03] MEDS: CHLORHEXIDINE GLUCONATE 15 ML CUP MUCOUS MEM SCH (08:38)
[2017-12-03] MEDS: PANTOPRAZOLE 40 MG/10 ML VIAL IVP SCH (08:38)
[2017-12-03] MEDS: HEPARIN SODIUM,PORCINE 5,000 UNIT/ML 1 ML VIAL SQ SCH ×2 (08:38→16:22)
[2017-12-03] MEDS ORDERED: FAMOTIDINE 20 MG/2 ML VIAL IV SCH (09:00)
--- NOTE | 2017-12-03 11:16 | PCN ---
PROCEDURE NOTE OPERATIVE REPORT: Placement of a left radial arterial line. PREOPERATIVE DIAGNOSES: Pneumonia, sepsis, and hypotension. ANESTHESIA USED: None deployed. PROCEDURE: The left wrist was prepared in a sterile fashion, drapes were applied. The left radial artery was palpated, cannulated, and a guidewire was placed. A Cook catheter was inserted over the guidewire, the guidewire was removed. Good blood flow and good waveform were noted, no evidence of any immediate complications. The line was secured using 3.0 silk sutures. MMODL / IJN: [id number] /
--- NOTE | 2017-12-03 11:20 | P.PN ---
Subjective Progress Note Date: 12/03/17 Principal diagnosis: Acute respiratory failure, acute sepsis and septic shock, right sided pneumonia. Mr. Hester is a 72-year-old white male patient from [facility], was brought to the emergency department on 12/01/2017 at 2219 by ambulance, for concerns of abnormal labs, namely abnormal renal profile and white blood cell count, and altered mentation. Patient was increasingly lethargic at the [facility]. Patient does have dementia at his baseline. He was recently hospitalized from 10/31/2017 through 11/04/2017 for Enterococcus faecalis urinary tract infection, acute kidney injury. Patient had significant clinical improvement, received IV fluid hydration, renal profile had improved, creatinine was at 1.74 at discharge. In the emergency department patient was increasingly more lethargic, became hypoxemic, with pulse ox of 84%, febrile, with a temp of 10 1F, he went into atrial fibrillation with rapid ventricular response. He was then intubated and placed on mechanical ventilator. Initial chest x-ray showed airspace opacities within the lung bases, low lung volumes and atelectasis, pneumonia could not be excluded. Follow-up chest x-rays post intubation showed ET tube at 4.5 cm above the elizabeth, which showed patchy pneumonic consolidation in the right lung. This morning chest x-ray shows increasing right lower lobe consolidation. Labs showed mild leukocytosis WBC of 13.8, hemoglobin 11.9, INR 1.3, B1 of 97, creatinine is 2.6, lites were unremarkable, plasma lactic acid 3.2, CK-MB is 9.5, troponin 0.072, proBNP 2530 , urinalysis showed large amount of leukocyte esterase, pyuria, and red blood cells. Urine drug screen was negative. Patient has received a total of 2.5 L of 0.9 normal saline and fluid boluses, he remains on mechanical ventilator, sedated, currently on Diprivan and at 15 mics per kilo per minute, Cardizem drip is infusing at a rate of 5 mg per hour, 0.9 at 20 ML per hour. Current vent settings assist control mode with a rate of 16, tidal volume 500, FiO2 of 100% and PEEP of 5. Blood gas this morning's pO2 of 82, pCO2 45, pH of 7.35 is done on FiO2 100%. Blood cultures, sputum and urine cultures were ordered, and are pending at this time. Patient has a chronic indwelling catheter, history of urinary retention, benign prostatic hypertrophy, and previous history of sacral ulcer. Urine output is still marginal, has been a total of 500 mL of cloudy urine since patient's arrival to the emergency department last night. Blood pressures are marginal, currently at 19/53, with a mean of 68, patient is tachypneic, breathing at 26 breaths per minute, he needs to be adequately sedated. He received a dose of Levaquin and Zosyn, we're consulted in regards to right lower lobe pneumonia, critical care management Patient was reevaluated today on 12/03/2017, remains on mechanical ventilation, ventilator settings are tidal volume of 500, assist control rate of 16 FiO2 of 40%, and PEEP of 5. ABG showed a pO2 of 116 pCO2 of 38 and pH of 7.40. Hence his FiO2 was decreased from 50% to 40%. Patient remains on norepinephrine at 10 mcg/m, he has excellent urine output, and as we wake him up today, I plan to taper and possibly discontinue norepinephrine. Patient has good urine output, renal functioning is significantly improving, and creatinine today is 1.90, definitely improved since yesterday. Blood cultures are positive for gram- negative bacilli, hence we have a [place] organism causing his sepsis and septic shock, and a chest x-ray is showing some improvement in his right sided pneumonia, therefore, I decided to cancel bronchoscopy today. This is based on the fact that we have a specific organism to treat, and based on the fact that his chest x-ray is improving, and his hemodynamic status is also improving. Obviously patient is responding well to treatment over the last 24 hours. WBC count is 15.9 hemoglobin is 9.3 basic metabolic profile is normal. Sputum cultures are pending but blood cultures are negative for gram-negative bacilli. Patient remains on Zosyn and Levaquin. And his vancomycin will be discontinued. Patient remains on propofol, and I plan to hold propofol, and hopefully give the patient a spontaneous breathing trial later on today. Nutrition-mcqueen, the patient will continue on enteral feeding as per rotary filter operator on the case. Objective - Vital Signs Vital signs: Vital Signs Temp 98.7 F 12/03/17 04:00 Pulse 98 12/03/17 10:00 Resp 26 H 12/03/17 10:00 BP 110/58 12/02/17 22:10 Pulse Ox 100 12/03/17 10:00 Intake & Output 12/02/17 12/03/17 12/03/17 18:59 06:59 18:59 Intake Total 2823.305 3929.764 668.213 Output Total 570 1575 360 Balance 1343.100 985.764 308.213 Weight 75.4 kg Intake: IV 1600 2125.0 575 Piperacillin-Tazobactam 3 50 25.0 .375 gm In Dextrose/Water 1 50ml.bag @ 12.5 mls/hr IVPB Q8H [facility] Rx#: [id number] Sodium Chloride 0.9% 1, 300 1850 450 000 ml @ 150 mls/hr IV . Q6H40M [facility] Rx#:[id number] Sodium Chloride 0.9% 1, 1000 500 ml @ 999 mls/hr IV . Q1H31M [facility] Rx#:[id number] Vancomycin 1,500 mg In 250 250 125 Sodium Chloride 0.9% 250 ml @ 125 mls/hr IVPB Q48H [facility] Rx#:[id number] Intake, IV Titration 313.100 435.764 93.213 Amount Diltiazem 50 mg In Sodium 50 Chloride 0.9% 40 ml @ 5 MG/HR 5 mls/hr IV .Q10H [facility] Rx#:[id number] Norepinephrin 16 mg-0.9% 293.548 4.813 Ns Pmx 16 mg In 250 ml @ Titrate IV .Q0M [facility] Rx#: [id number] Norepinephrine 4 mg In 200.625 Dextrose 5% in Water 250 ml @ Titrate IV .Q0M [facility] Rx#:[id number] Propofol 1,000 mg In 62.475 142.216 88.4 Empty Bag 1 bag @ Titrate IV .Q0M [facility] Rx#: [id number] Output: Gastric Drainage 20 Urine 550 1575 360 Other: Voiding Method Indwelling Catheter Indwelling Catheter ABP, PAP, CO, CI - Last Documented Arterial Blood Pressure 109/62 - Exam Physical Exam: Revealed a 72-year-old white male sedated, on mechanical ventilation, in no distress. Head: Atraumatic, normocephalic. Endotracheal tube and nasogastric tube are intact. HEENT:[Neck is supple.] [No neck masses.] [No thyromegaly.] [No JVD.] PERRLA, EOMI, no icterus. Moist mucous membranes noted. Chest: [Crackles and rhonchi noted at the right base, left side is relatively clear. Symmetrical chest expansion was noted. No chest wall tenderness.] Cardiac Exam: [Normal S1 and S2, no S3 gallop, no murmur.] Abdomen: [Soft, nontender, no megaly, no rebound, no guarding, normal bowel sounds.] Extremities: [No clubbing, no edema, no cyanosis.] Neurological Exam: Cannot be assessed, patient remains on propofol this morning. However I plan to give the patient is sedation holiday today. Psychiatric: Cannot be assessed. Skin: No rashes. There is however a large decubitus ulcer noted on admission. - Labs CBC & Chem 7: 12/03/17 04:00 12/03/17 04:00 Labs: Abnormal Lab Results - Last 24 Hours (Table) 12/02/17 12/02/17 12/02/17 Range/Units 10:55 14:44 14:58 WBC (3.8-10.6) k/uL RBC (4.30-5.90) m/uL Hgb (13.0-17.5) gm/dL Hct (39.0-53.0) % RDW (11.5-15.5) % Neutrophils # (Manual) (1.3-7.7) k/uL Lymphocytes # (Manual) (1.0-4.8) k/uL Metamyelocytes # (Man) (0) k/uL ABG pO2 (83-108) mmHg ABG Total CO2 (19-24) mmol/L ABG O2 Saturation (94-97) % Chloride (98-107) mmol/L BUN (9-20) mg/dL Creatinine (0.66-1.25) mg/dL Glucose (74-99) mg/dL POC Glucose (mg/dL) 152 H (75-99) mg/dL Hemoglobin A1c (4.0-6.0) % Plasma Lactic Acid Redd 2.3 H* 3.0 H* (0.7-2.0) mmol/L Calcium (8.4-10.2) mg/dL AST (17-59) U/L Total Protein (6.3-8.2) g/dL Albumin (3.5-5.0) g/dL 12/02/17 12/02/17 12/02/17 Range/Units 15:51 18:15 18:15 WBC 12.5 H (3.8-10.6) k/uL RBC 3.14 L (4.30-5.90) m/uL Hgb 9.2 L D (13.0-17.5) gm/dL Hct 28.7 L (39.0-53.0) % RDW 15.8 H (11.5-15.5) % Neutrophils # (Manual) 11.70 H (1.3-7.7) k/uL Lymphocytes # (Manual) 0.38 L (1.0-4.8) k/uL Metamyelocytes # (Man) 0.25 H (0) k/uL ABG pO2 66 L (83-108) mmHg ABG Total CO2 (19-24) mmol/L ABG O2 Saturation 93.8 L (94-97) % Chloride 113 H (98-107) mmol/L BUN 80 H* (9-20) mg/dL Creatinine 2.00 H (0.66-1.25) mg/dL Glucose 239 H (74-99) mg/dL POC Glucose (mg/dL) (75-99) mg/dL Hemoglobin A1c (4.0-6.0) % Plasma Lactic Acid Redd (0.7-2.0) mmol/L Calcium 7.2 L (8.4-10.2) mg/dL AST (17-59) U/L Total Protein (6.3-8.2) g/dL Albumin (3.5-5.0) g/dL 12/02/17 12/02/17 12/03/17 Range/Units 18:15 20:17 00:24 WBC (3.8-10.6) k/uL RBC (4.30-5.90) m/uL Hgb (13.0-17.5) gm/dL Hct (39.0-53.0) % RDW (11.5-15.5) % Neutrophils # (Manual) (1.3-7.7) k/uL Lymphocytes # (Manual) (1.0-4.8) k/uL Metamyelocytes # (Man) (0) k/uL ABG pO2 (83-108) mmHg ABG Total CO2 (19-24) mmol/L ABG O2 Saturation (94-97) % Chloride (98-107) mmol/L BUN (9-20) mg/dL Creatinine (0.66-1.25) mg/dL Glucose (74-99) mg/dL POC Glucose (mg/dL) 214 H 253 H (75-99) mg/dL Hemoglobin A1c 6.3 H (4.0-6.0) % Plasma Lactic Acid Redd (0.7-2.0) mmol/L Calcium (8.4-10.2) mg/dL AST (17-59) U/L Total Protein (6.3-8.2) g/dL Albumin (3.5-5.0) g/dL 12/03/17 12/03/17 12/03/17 Range/Units 04:00 04:00 05:43 WBC 15.9 H (3.8-10.6) k/uL RBC 3.23 L (4.30-5.90) m/uL Hgb 9.3 L (13.0-17.5) gm/dL Hct 29.8 L (39.0-53.0) % RDW 15.7 H (11.5-15.5) % Neutrophils # (Manual) 15.20 H (1.3-7.7) k/uL Lymphocytes # (Manual) 0.32 L (1.0-4.8) k/uL Metamyelocytes # (Man) (0) k/uL ABG pO2 (83-108) mmHg ABG Total CO2 (19-24) mmol/L ABG O2 Saturation (94-97) % Chloride 114 H (98-107) mmol/L BUN 68 H (9-20) mg/dL Creatinine 1.90 H (0.66-1.25) mg/dL Glucose 192 H (74-99) mg/dL POC Glucose (mg/dL) 171 H (75-99) mg/dL Hemoglobin A1c (4.0-6.0) % Plasma Lactic Acid Redd (0.7-2.0) mmol/L Calcium 7.6 L (8.4-10.2) mg/dL AST 63 H (17-59) U/L Total Protein 4.3 L (6.3-8.2) g/dL Albumin 2.1 L (3.5-5.0) g/dL 12/03/17 Range/Units 07:12 WBC (3.8-10.6) k/uL RBC (4.30-5.90) m/uL Hgb (13.0-17.5) gm/dL Hct (39.0-53.0) % RDW (11.5-15.5) % Neutrophils # (Manual) (1.3-7.7) k/uL Lymphocytes # (Manual) (1.0-4.8) k/uL Metamyelocytes # (Man) (0) k/uL ABG pO2 116 H (83-108) mmHg ABG Total CO2 25 H (19-24) mmol/L ABG O2 Saturation 99.1 H (94-97) % Chloride (98-107) mmol/L BUN (9-20) mg/dL Creatinine (0.66-1.25) mg/dL Glucose (74-99) mg/dL POC Glucose (mg/dL) (75-99) mg/dL Hemoglobin A1c (4.0-6.0) % Plasma Lactic Acid Redd (0.7-2.0) mmol/L Calcium (8.4-10.2) mg/dL AST (17-59) U/L Total Protein (6.3-8.2) g/dL Albumin (3.5-5.0) g/dL Microbiology - Last 24 Hours (Table) 12/02/17 04:31 Gram Stain - Preliminary Sputum Sputum Culture - Preliminary 12/01/17 22:13 Blood Culture Gram Stain - Preliminary Blood Blood Culture - Preliminary Gram Neg Bacilli 12/02/17 16:55 Urine Culture - Preliminary Urine,Catheterized 12/01/17 22:13 Blood Culture - Final Blood 12/01/17 22:20 Urine Culture - Preliminary Urine,Catheterized Assessment and Plan Assessment: Impression: 1 acute hypoxic respiratory failure secondary to gram-negative pneumonia, acute gram-negative sepsis and septic shock, 2 acute gram-negative pneumonia 3 acute septic shock and sepsis secondary to pneumonia 4 paroxysmal atrial fibrillation 5 acute on chronic kidney injury secondary to hypotension and septic shock, presented with a picture of acute tubular necrosis. 6 multiple comorbidities including dementia, chronic anemia, and chronic kidney injury. Recommendation: Continue present supportive care measures including mechanical ventilation, nutritional support, hemodynamic support, but consider tapering the norepinephrine as tolerated maintaining a mean arterial pressure of 65 continue close monitoring of his renal status, no need for dialysis at this point. Urine output seems to be improving. And he'll functioning seems to be improving. Consider weaning trial today, we will hold sedation, and possibly give the patient a spontaneous breathing trial today. Overall prognosis remains guarded, considering the improvement in the last 24 hours, I canceled the plans for bronchoscopy and lavage of the right lung, and we'll continue Zosyn and Levaquin for now. Patient remains critically ill, but improving. Critical care time is 40 minutes. Time with Patient: Greater than 30
--- NOTE | 2017-12-03 11:23 | PCN ---
PROCEDURE NOTE OPERATIVE REPORT: Placement of right femoral triple-lumen catheter. PREOPERATIVE DIAGNOSES: Right lower lobe pneumonia, acute respiratory failure, and hypotension. POSTOPERATIVE DIAGNOSES: Right lower lobe pneumonia, acute respiratory failure, and hypotension. ANESTHESIA USED: 2 mL of 1% lidocaine. PROCEDURE: The patient was placed in the supine position. The right groin was prepared in a sterile fashion and drapes were applied. The area was locally anesthetized with lidocaine using 2 mL of 1% lidocaine. Then, the right femoral vein was easily cannulated, and a guidewire was placed. The area around the guidewire was dilated using the dilator. Then a triple-lumen catheter was inserted over the guidewire, and the guidewire was removed. There was good flow in the different ports of the triple- lumen catheter. Line was secured using 3.0 silk sutures. Procedure was tolerated and no evidence of any immediate complications. MMODL / IJN: [id number] /
[2017-12-03 11:44] LABS: Glucose,Whole Blood 131 mg/dL (75-99)
--- NOTE | 2017-12-03 11:47 | CONS ---
CONSULTATION DATE OF SERVICE: 12/02/2017 REASON FOR CONSULTATION: Sepsis and bacteremia. HISTORY OF PRESENT ILLNESS: The patient is a 72-year-old male who is a resident of [facility] has been brought into the ER at [facility] for evaluation of an abnormal blood work and mental status changes. The patient apparently has been getting increasingly weak and lethargic. On arrival to the ER, the patient becoming hypoxic with O2 sats of 84%, did spike a fever of 101 degrees Fahrenheit. The patient did have a chest x-ray suggestive of airspace opacity within the lung bases. The patient ended up getting intubated in the ER. The patient has been treated with broad-spectrum antibiotic in the form of Zosyn and Levaquin. He did have blood cultures obtained and subsequently have been showing gram-positive cocci. Hence, Infectious Disease was consulted for further recommendation regarding antibiotic therapy. The patient did have a chronic indwelling Bhatt catheter with significantly concentrated urine and UA has been positive with large size leukocyte esterases with more than 182 WBCs. The patient's urine drug screen has been negative. He did receive fluid boluses, however, did not require any pressor support. Infectious disease was consulted for further recommendation regarding antibiotic therapy. Most of the information has been obtained from talking to nursing and review of his chart as the patient is currently on the vent and unable to provide reliable history. REVIEW OF SYSTEMS: Could not be reliably obtained. The positive points have been mentioned in HPI. PAST MEDICAL HISTORY: His past medical history is significant for dementia, history of prostate disorder, renal insufficiency, obstruction requiring a Bhatt catheter and stage III pressure ulcer. PAST SURGICAL HISTORY: Appendectomy and tonsillectomy. SOCIAL HISTORY: Currently a retirement resident. Remote history of smoking. No drinking or no drug use. FAMILY HISTORY: Father history of Parkinson disease. Mother history of cancer of unknown type. ALLERGIES: No known drug allergies. MEDICATION: The patient is currently on Tylenol, DuoNeb, heparin, NovoLog, Levaquin, Zosyn, propofol. PHYSICAL EXAMINATION: On examination, blood pressure is 110/58 with a pulse of 81, temperature is 99.2, T-max is 101 degrees Fahrenheit, currently 98% on 50% FiO2. General description is an elderly male lying in bed in no distress. No tachypnea or accessory muscle of respiration use. HEENT examination shows slight pallor. No scleral icterus. The patient orally intubated, limited examination of oral cavity. NECK: Trachea central. No thyromegaly. LUNGS: Unlabored breathing with decreased breath sounds at the bases. No wheeze or crackle. HEART: S1, S2. Regular rate and rhythm. No added sounds. ABDOMEN: Soft, no tenderness. No guarding or rigidity. EXTREMITIES: No edema of feet. SKIN EXAMINATION: No rash or mass palpable. GENITOURINARY: Bhatt catheter draining dark concentrated urine. No hematuria. NEUROLOGIC: The patient is currently sedated on the vent. LABS: Hemoglobin 9.2, white count 12.5, BUN of 80, creatinine 2.0 though improved from yesterday at 2.60. Lactic acid elevated at 2.3. Urine positive moderate blood, large leukocyte esterases. Blood culture gram-positive cocci. DIAGNOSTIC IMPRESSION AND PLAN: Patient admitted to the hospital with sepsis in a patient who did have a fever of 101 degrees Fahrenheit, did have elevated white count, elevated lactic acid in a patient who became hypoxic with acute respiratory failure likely component of pneumonia with question of possible aspiration etiology. However underlying urinary tract infection to be the source is not totally excluded and the patient did have significantly positive and chronic indwelling Bhatt catheter with no clear history of when the Bhatt catheter was changed last. PLAN: 1. Change his Bhatt catheter and obtain urine culture from new Bhatt. 2. Blood cultures to be repeated. 3. Vancomycin pharmacy to dose target of 15, however, watch his kidney functions very closely. 4. Keep the patient on Zosyn 3.375 gram q.8 hours to cover for possible aspiration pneumonia and await for the sputum culture to finalize. 5. We will follow up on his clinical condition as well as cultures to further adjust medication if needed. Thank you for this consultation. Will follow this patient along with you. MMODL / IJN: [id number] /
[2017-12-03 13:50] LABS: ABG Base Excess 0.1 mmol/L; ABG HCO3 24 mmol/L (21-25); ABG Oxygen Saturation 99.2 % (94-97); ABG PCO2 34 mmHg (35-45); ABG PH 7.46 (7.35-7.45); ABG PO2 109 mmHg (83-108); ABG TCO2 25 mmol/L (19-24)
--- NOTE | 2017-12-03 16:07 | P.PN ---
Subjective Patient was admitted for septic shock patient is on ventilator patient is presently on spontaneous breathing trial still remains on pressor support. Patient was started on Coumadin by cardiology patient underwent echocardiogram which showed normal ejection fraction patient is awake off sedation when I evaluated the patient patient remains on Zosyn and levofloxacin infectious disease evaluated the patient vancomycin was discontinued as patient has gram- negative bacteremia urine cultures are also positive for gram-negative bacilli. Patient has clear-cut infiltrate the right middle lobe. Unsure whether etiology of his sepsis is either lung or urine are both. Patient probably can be extubated if the he is doing well with spontaneous breathing trial. Creatinine improved to 1.5 from 2.5 remains on IV fluid heart rate is a low 100s Objective - Vital Signs Vital signs: Vital Signs Temp 98.7 F 12/03/17 04:00 Pulse 84 12/03/17 15:47 Resp 22 12/03/17 15:50 BP 90/56 12/03/17 15:30 Pulse Ox 92 L 12/03/17 15:30 Intake & Output 12/02/17 12/03/17 12/03/17 18:59 06:59 18:59 Intake Total 2416.532 3559.764 1443.213 Output Total 570 1575 1325 Balance 1343.100 985.764 118.213 Weight 75.4 kg 75.5 kg Intake: IV 1600 2125.0 1350.0 Piperacillin-Tazobactam 3 50 25.0 25.0 .375 gm In Dextrose/Water 1 50ml.bag @ 12.5 mls/hr IVPB Q8H [facility] Rx#: [id number] Sodium Chloride 0.9% 1, 300 1850 1200 000 ml @ 150 mls/hr IV . Q6H40M [facility] Rx#:[id number] Sodium Chloride 0.9% 1, 1000 500 ml @ 999 mls/hr IV . Q1H31M [facility] Rx#:[id number] Vancomycin 1,500 mg In 250 250 125 Sodium Chloride 0.9% 250 ml @ 125 mls/hr IVPB Q48H [facility] Rx#:[id number] Intake, IV Titration 313.100 435.764 93.213 Amount Diltiazem 50 mg In Sodium 50 Chloride 0.9% 40 ml @ 5 MG/HR 5 mls/hr IV .Q10H [facility] Rx#:[id number] Norepinephrin 16 mg-0.9% 293.548 4.813 Ns Pmx 16 mg In 250 ml @ Titrate IV .Q0M [facility] Rx#: [id number] Norepinephrine 4 mg In 200.625 Dextrose 5% in Water 250 ml @ Titrate IV .Q0M [facility] Rx#:[id number] Propofol 1,000 mg In 62.475 142.216 88.4 Empty Bag 1 bag @ Titrate IV .Q0M [facility] Rx#: [id number] Output: Gastric Drainage 20 Urine 550 1575 1325 Other: Voiding Method Indwelling Catheter Indwelling Catheter ABP, PAP, CO, CI - Last Documented Arterial Blood Pressure 104/52 - Exam PHYSICAL EXAMINATION: GENERAL: Patient is intubated awake, please refer to pulmonology dictation for further details of and setting HEENT: Pupils are round and equally reacting to light. EOMI. No scleral icterus. No conjunctival pallor. Normocephalic, atraumatic. No pharyngeal erythema. No thyromegaly. CARDIOVASCULAR: S1 and S2 present. No murmurs, rubs, or gallops. PULMONARY: Chest is clear to auscultation, no wheezing or crackles. ABDOMEN: Soft, nontender, nondistended, normoactive bowel sounds. No palpable organomegaly. MUSCULOSKELETAL: No joint swelling or deformity. EXTREMITIES: No cyanosis, clubbing, or pedal edema. NEUROLOGICAL: Moving all 4 limbs SKIN: No rashes. - Labs CBC & Chem 7: 12/03/17 04:00 12/03/17 04:00 Labs: Abnormal Lab Results - Last 24 Hours (Table) 12/02/17 12/02/17 12/02/17 Range/Units 18:15 18:15 18:15 WBC 12.5 H (3.8-10.6) k/uL RBC 3.14 L (4.30-5.90) m/uL Hgb 9.2 L D (13.0-17.5) gm/dL Hct 28.7 L (39.0-53.0) % RDW 15.8 H (11.5-15.5) % Neutrophils # (Manual) 11.70 H (1.3-7.7) k/uL Lymphocytes # (Manual) 0.38 L (1.0-4.8) k/uL Metamyelocytes # (Man) 0.25 H (0) k/uL ABG pH (7.35-7.45) ABG pCO2 (35-45) mmHg ABG pO2 (83-108) mmHg ABG Total CO2 (19-24) mmol/L ABG O2 Saturation (94-97) % Chloride 113 H (98-107) mmol/L BUN 80 H* (9-20) mg/dL Creatinine 2.00 H (0.66-1.25) mg/dL Glucose 239 H (74-99) mg/dL POC Glucose (mg/dL) (75-99) mg/dL Hemoglobin A1c 6.3 H (4.0-6.0) % Calcium 7.2 L (8.4-10.2) mg/dL AST (17-59) U/L Total Protein (6.3-8.2) g/dL Albumin (3.5-5.0) g/dL 12/02/17 12/03/17 12/03/17 Range/Units 20:17 00:24 04:00 WBC 15.9 H (3.8-10.6) k/uL RBC 3.23 L (4.30-5.90) m/uL Hgb 9.3 L (13.0-17.5) gm/dL Hct 29.8 L (39.0-53.0) % RDW 15.7 H (11.5-15.5) % Neutrophils # (Manual) 15.20 H (1.3-7.7) k/uL Lymphocytes # (Manual) 0.32 L (1.0-4.8) k/uL Metamyelocytes # (Man) (0) k/uL ABG pH (7.35-7.45) ABG pCO2 (35-45) mmHg ABG pO2 (83-108) mmHg ABG Total CO2 (19-24) mmol/L ABG O2 Saturation (94-97) % Chloride (98-107) mmol/L BUN (9-20) mg/dL Creatinine (0.66-1.25) mg/dL Glucose (74-99) mg/dL POC Glucose (mg/dL) 214 H 253 H (75-99) mg/dL Hemoglobin A1c (4.0-6.0) % Calcium (8.4-10.2) mg/dL AST (17-59) U/L Total Protein (6.3-8.2) g/dL Albumin (3.5-5.0) g/dL 12/03/17 12/03/17 12/03/17 Range/Units 04:00 05:43 07:12 WBC (3.8-10.6) k/uL RBC (4.30-5.90) m/uL Hgb (13.0-17.5) gm/dL Hct (39.0-53.0) % RDW (11.5-15.5) % Neutrophils # (Manual) (1.3-7.7) k/uL Lymphocytes # (Manual) (1.0-4.8) k/uL Metamyelocytes # (Man) (0) k/uL ABG pH (7.35-7.45) ABG pCO2 (35-45) mmHg ABG pO2 116 H (83-108) mmHg ABG Total CO2 25 H (19-24) mmol/L ABG O2 Saturation 99.1 H (94-97) % Chloride 114 H (98-107) mmol/L BUN 68 H (9-20) mg/dL Creatinine 1.90 H (0.66-1.25) mg/dL Glucose 192 H (74-99) mg/dL POC Glucose (mg/dL) 171 H (75-99) mg/dL Hemoglobin A1c (4.0-6.0) % Calcium 7.6 L (8.4-10.2) mg/dL AST 63 H (17-59) U/L Total Protein 4.3 L (6.3-8.2) g/dL Albumin 2.1 L (3.5-5.0) g/dL 12/03/17 12/03/17 Range/Units 11:39 13:42 WBC (3.8-10.6) k/uL RBC (4.30-5.90) m/uL Hgb (13.0-17.5) gm/dL Hct (39.0-53.0) % RDW (11.5-15.5) % Neutrophils # (Manual) (1.3-7.7) k/uL Lymphocytes # (Manual) (1.0-4.8) k/uL Metamyelocytes # (Man) (0) k/uL ABG pH 7.46 H (7.35-7.45) ABG pCO2 34 L (35-45) mmHg ABG pO2 109 H (83-108) mmHg ABG Total CO2 25 H (19-24) mmol/L ABG O2 Saturation 99.2 H (94-97) % Chloride (98-107) mmol/L BUN (9-20) mg/dL Creatinine (0.66-1.25) mg/dL Glucose (74-99) mg/dL POC Glucose (mg/dL) 131 H (75-99) mg/dL Hemoglobin A1c (4.0-6.0) % Calcium (8.4-10.2) mg/dL AST (17-59) U/L Total Protein (6.3-8.2) g/dL Albumin (3.5-5.0) g/dL Microbiology - Last 24 Hours (Table) 12/02/17 04:31 Gram Stain - Preliminary Sputum Sputum Culture - Preliminary 12/01/17 22:20 Urine Culture - Preliminary Urine,Catheterized Gram Neg Bacilli 12/01/17 22:13 Blood Culture Gram Stain - Preliminary Blood Blood Culture - Preliminary Gram Neg Bacilli 12/02/17 16:55 Urine Culture - Preliminary Urine,Catheterized 12/01/17 22:13 Blood Culture - Final Blood Assessment and Plan Plan: -Septic shock possibly secondary to either right lower lobe pneumonia or urinary tract infection patient does have bacteremia with gram-negative bacilli patient is presently on Zosyn and levofloxacin -Acute hypoxic respiratory failure secondary to sepsis as mentioned above -Acute renal failure secondary to acute tubular necrosis IV fluids as mentioned above and patient is also requiring norepinephrine -Atrial fibrillation: Precipitated by sepsis and new onset, patient was started on Coumadin today echocardiogram showed normal ejection fraction -Chronic Bhatt catheter -Benign prostatic hypertrophy -Deconditioning with the possibility of dementia baseline
[2017-12-03 17:57] LABS: Glucose,Whole Blood 151 mg/dL (75-99)
[2017-12-03] MEDS ORDERED: WARFARIN 2 MG TAB PO ONE (18:00)
[2017-12-03] MEDS ORDERED: NOREPINEPHRINE 16 MG in DEXTROSE 5% IN WATER 250 ML IV SCH ×2 (19:00)
[2017-12-03 21:41] LABS: Calcium 7.7 mg/dL (8.4-10.2); Magnesium 2.2 mg/dL (1.6-2.3); Potassium 3.1 mmol/L (3.5-5.1)
[2017-12-03] MEDS: POTASSIUM CHLORIDE 20 MEQ in WATER FOR INJECTION 1 100ML.BAG IVPB SCH (22:38)
--- NOTE | 2017-12-03 22:44 | PN ---
PROGRESS NOTE DATE OF SERVICE: 12/03/2017 REASON FOR FOLLOWUP: 1. Sepsis, aspiration pneumonia and catheter-associated urinary tract infection. 2. Stage III sacral wound. INTERVAL HISTORY: The patient is afebrile. The patient is still requiring pressor support in the form of Levophed at 20 mcg this morning when he was seen on rounds. His FiO2 is stable. He has been tolerating his tube feeds. No other new events noted per the nursing staff. PHYSICAL EXAMINATION: Blood pressure 104/58 with a pulse of 90, temperature 98. General description is an elderly male lying in bed in no distress. RESPIRATORY SYSTEM: Unlabored breathing. Some coarse breath sounds at the bases. No wheeze. HEART: S1, S2. Regular rate and rhythm. ABDOMEN: Soft. No tenderness. SACRAL AREA: He did have a stage III wound with some deep surrounding deep tissue injury. No drainage. No cellulitis. LABS: BUN of 50, creatinine 1.40. Blood cultures which were previously reported as gram- positive have been switched to gram-negative. Urine showing gram-negative as well. DIAGNOSTIC IMPRESSION AND PLAN: Patient with sepsis, multifactorial, in a patient who did have gram-negative bacteremia. Source is likely catheter-associated urinary tract infection, though the Bhatt has been changed, and a possible component of aspiration pneumonia, currently on the vent. Antibiotic has been continued in the form of Zosyn and Levaquin. Vancomycin has been discontinued. Will monitor his his clinical course closely. Continue with supportive care. MMODL / IJN: [id number] /
[2017-12-04] MEDS ORDERED: FUROSEMIDE 10 MG/ML 4 ML VIAL ONE
[2017-12-04] MEDS ORDERED: INSULIN ASPART 100 UNIT/ML 1 ML 10 ML VIAL SQ ONE
[2017-12-04] MEDS ORDERED: HEPARIN SODIUM,PORCINE 5,000 UNIT/ML 1 ML VIAL ONE
[2017-12-04 00:11] LABS: Glucose,Whole Blood 139 mg/dL (75-99)
[2017-12-04] MEDS: POTASSIUM CHLORIDE 20 MEQ in WATER FOR INJECTION 1 100ML.BAG IVPB SCH ×3 (01:00→12:39)
[2017-12-04 04:22] LABS: Magnesium 2.2 mg/dL (1.6-2.3); Potassium 3.4 mmol/L (3.5-5.1)
[2017-12-04 04:25] LABS: Basophils % (A) 0 %; Eosinophils % (A) 0 %; HCT 28.6 % (39.0-53.0); HGB 9.2 gm/dL (13.0-17.5); Lymphocytes # (A) 0.6 k/uL (1.0-4.8); Lymphocytes % (A) 4 %; MCH 29.1 pg (25.0-35.0); MCHC 32.1 g/dL (31.0-37.0); MCV 90.5 fL (80.0-100.0); Mean Platelet Volume 7.4; Monocytes # (A) 0.3 k/uL (0-1.0); Monocytes % (A) 2 %; Neutrophils # (A) 11.8 k/uL (1.3-7.7); Neutrophils % (A) 93 %; Platelet Count 216 k/uL (150-450); RBC 3.16 m/uL (4.30-5.90); RDW 15.8 % (11.5-15.5); WBC 12.7 k/uL (3.8-10.6)
[2017-12-04] MEDS: HEPARIN SODIUM,PORCINE 5,000 UNIT/ML 1 ML VIAL SQ SCH (05:18)
[2017-12-04] MEDS: INSULIN ASPART 100 UNIT/ML 1 ML 10 ML VIAL SQ SCH ×5 (05:18→21:32)
[2017-12-04] MEDS: PIPERACILLIN-TAZOBACTAM 3.375 GM in DEXTROSE/WATER 1 50ML.BAG IVPB SCH ×3 (05:19→21:41)
[2017-12-04] MEDS: SODIUM CHLORIDE 0.9% 1,000 ML IV SCH ×2 (05:19→10:30)
[2017-12-04] MEDS ORDERED: Potassium Replacement Protocol 1 EACH MISC MISCELLANE PRN (05:24)
[2017-12-04] MEDS ORDERED: VANCOMYCIN 1,500 MG in SODIUM CHLORIDE 0.9% 250 ML IVPB SCH (06:00)
[2017-12-04 06:20] LABS: Glucose,Whole Blood 120 mg/dL (75-99)
--- NOTE | 2017-12-04 07:39 | P.PN ---
Subjective Progress Note Date: 12/04/17 Principal diagnosis: Paroxysmal atrial fibrillation/acute coronary syndrome This is a 72-year-old gentleman who I was asked to see for further cardiac evaluation of atrial fibrillation with RVR. The patient currently is intubated and he is on ventilator. The history was taken from the chart as well as from the nurse taking care of the patient. Apparently the patient was hospitalized recently for urinary tract infection and he was discharged into an extended- care facility in stable medical condition. He was brought to the emergency room on 12/01/2017 by ambulance from the extended care facility with a change in mental status and increasing lethargy was noticed by the nurse over there. Beside that the patient does have dementia at his baseline. In the ER the patient was more lethargic and became hypoxic with a pulse oximetry of 84% and he was febrile with a temperature of more than 100 Fahrenheit. Beside that in the emergency department the patient went into an A. fib with RVR and was started on Cardizem drip and converted to normal sinus mechanism after that. In the ER the patient was intubated and placed on mechanical ventilator. Initial chest x-ray showed opacities within the lung base consistent with a pneumonia. The patient was admitted with pneumonia/ sepsis and he was started on antibiotic. The patient also was found to be in acute renal failure with a creatinine of 2.6 when he presented to the hospital currently the creatinine is 1.9. On follow-up with the patient today, he was extubated yesterday. Hemodynamically he is unstable and he still requiring small dose of vasopressor. He is in and out atrial fibrillation and throwing ectopies. At the same time his electrolytes are imbalanced and he is hypokalemic. The potassium is in process to be replaced. I am going to start the patient on amiodarone to keep him in normal sinus rhythm. Also would start the patient on heparin IV. And I would add small dose of aspirin giving the diagnosed as of not ST elevation [place]. We'll continue following up with the patient. The chest x -ray continues to show findings consistent with pneumonia. Objective - Vital Signs Vital signs: Vital Signs Temp 99.3 F 12/04/17 04:00 Pulse 91 12/04/17 07:00 Resp 22 12/04/17 07:00 BP 90/56 12/03/17 15:40 Pulse Ox 97 12/04/17 07:00 Intake & Output 12/03/17 12/04/17 12/04/17 18:59 06:59 18:59 Intake Total 1165.119 8686.969 50 Output Total 1690 4145 250 Balance 241.813 -2557.031 -200 Weight 75.5 kg Intake: IV 1825.0 1450 50 Piperacillin-Tazobactam 3 50.0 100 .375 gm In Dextrose/Water 1 50ml.bag @ 12.5 mls/hr IVPB Q8H [facility] Rx#: [id number] Sodium Chloride 0.9% 1, 1650 1350 50 000 ml @ 150 mls/hr IV . Q6H40M [facility] Rx#:[id number] Vancomycin 1,500 mg In 125 Sodium Chloride 0.9% 250 ml @ 125 mls/hr IVPB Q48H [facility] Rx#:[id number] Intake, IV Titration 106.813 137.969 Amount Norepinephrin 16 mg-0.9% 4.813 137.969 Ns Pmx 16 mg In 250 ml @ Titrate IV .Q0M [facility] Rx#: [id number] Propofol 1,000 mg In 102.0 Empty Bag 1 bag @ Titrate IV .Q0M [facility] Rx#: [id number] Output: Urine 1690 4145 250 Other: Voiding Method Indwelling Catheter ABP, PAP, CO, CI - Last Documented Arterial Blood Pressure 129/65 - Constitutional General appearance: Present: no acute distress - Respiratory Respiratory: bilateral: rales - Cardiovascular Rhythm: irregularly irregular Heart sounds: normal: S1, S2 - Labs CBC & Chem 7: 12/04/17 03:30 12/04/17 03:30 Labs: Abnormal Lab Results - Last 24 Hours (Table) 12/03/17 12/03/17 12/03/17 Range/Units 04:00 07:12 11:39 WBC (3.8-10.6) k/uL RBC (4.30-5.90) m/uL Hgb (13.0-17.5) gm/dL Hct (39.0-53.0) % RDW (11.5-15.5) % Neutrophils # (1.3-7.7) k/uL Neutrophils # (Manual) 15.20 H (1.3-7.7) k/uL Lymphocytes # (1.0-4.8) k/uL Lymphocytes # (Manual) 0.32 L (1.0-4.8) k/uL ABG pH (7.35-7.45) ABG pCO2 (35-45) mmHg ABG pO2 116 H (83-108) mmHg ABG Total CO2 25 H (19-24) mmol/L ABG O2 Saturation 99.1 H (94-97) % Sodium (137-145) mmol/L Potassium (3.5-5.1) mmol/L Chloride (98-107) mmol/L BUN (9-20) mg/dL Creatinine (0.66-1.25) mg/dL Glucose (74-99) mg/dL POC Glucose (mg/dL) 131 H (75-99) mg/dL Calcium (8.4-10.2) mg/dL Phosphorus (2.5-4.5) mg/dL 12/03/17 12/03/17 12/03/17 Range/Units 13:42 17:53 20:55 WBC (3.8-10.6) k/uL RBC (4.30-5.90) m/uL Hgb (13.0-17.5) gm/dL Hct (39.0-53.0) % RDW (11.5-15.5) % Neutrophils # (1.3-7.7) k/uL Neutrophils # (Manual) (1.3-7.7) k/uL Lymphocytes # (1.0-4.8) k/uL Lymphocytes # (Manual) (1.0-4.8) k/uL ABG pH 7.46 H (7.35-7.45) ABG pCO2 34 L (35-45) mmHg ABG pO2 109 H (83-108) mmHg ABG Total CO2 25 H (19-24) mmol/L ABG O2 Saturation 99.2 H (94-97) % Sodium 147 H (137-145) mmol/L Potassium 3.1 L (3.5-5.1) mmol/L Chloride 117 H (98-107) mmol/L BUN 50 H (9-20) mg/dL Creatinine 1.40 H (0.66-1.25) mg/dL Glucose 148 H (74-99) mg/dL POC Glucose (mg/dL) 151 H (75-99) mg/dL Calcium 7.7 L (8.4-10.2) mg/dL Phosphorus (2.5-4.5) mg/dL 12/04/17 12/04/17 12/04/17 Range/Units 00:08 03:30 03:30 WBC 12.7 H (3.8-10.6) k/uL RBC 3.16 L (4.30-5.90) m/uL Hgb 9.2 L (13.0-17.5) gm/dL Hct 28.6 L (39.0-53.0) % RDW 15.8 H (11.5-15.5) % Neutrophils # 11.8 H (1.3-7.7) k/uL Neutrophils # (Manual) (1.3-7.7) k/uL Lymphocytes # 0.6 L (1.0-4.8) k/uL Lymphocytes # (Manual) (1.0-4.8) k/uL ABG pH (7.35-7.45) ABG pCO2 (35-45) mmHg ABG pO2 (83-108) mmHg ABG Total CO2 (19-24) mmol/L ABG O2 Saturation (94-97) % Sodium 149 H (137-145) mmol/L Potassium 3.4 L (3.5-5.1) mmol/L Chloride 118 H (98-107) mmol/L BUN 46 H (9-20) mg/dL Creatinine 1.60 H (0.66-1.25) mg/dL Glucose 113 H (74-99) mg/dL POC Glucose (mg/dL) 139 H (75-99) mg/dL Calcium 8.0 L (8.4-10.2) mg/dL Phosphorus 2.0 L (2.5-4.5) mg/dL 12/04/17 Range/Units 06:19 WBC (3.8-10.6) k/uL RBC (4.30-5.90) m/uL Hgb (13.0-17.5) gm/dL Hct (39.0-53.0) % RDW (11.5-15.5) % Neutrophils # (1.3-7.7) k/uL Neutrophils # (Manual) (1.3-7.7) k/uL Lymphocytes # (1.0-4.8) k/uL Lymphocytes # (Manual) (1.0-4.8) k/uL ABG pH (7.35-7.45) ABG pCO2 (35-45) mmHg ABG pO2 (83-108) mmHg ABG Total CO2 (19-24) mmol/L ABG O2 Saturation (94-97) % Sodium (137-145) mmol/L Potassium (3.5-5.1) mmol/L Chloride (98-107) mmol/L BUN (9-20) mg/dL Creatinine (0.66-1.25) mg/dL Glucose (74-99) mg/dL POC Glucose (mg/dL) 120 H (75-99) mg/dL Calcium (8.4-10.2) mg/dL Phosphorus (2.5-4.5) mg/dL Microbiology - Last 24 Hours (Table) 12/03/17 14:55 Gram Stain - Preliminary Buttock Wound Culture - Preliminary 12/01/17 22:13 Blood Culture Gram Stain - Final Blood Blood Culture - Final Proteus mirabilis 12/02/17 16:55 Urine Culture - Preliminary Urine,Catheterized Group D Enterococcus 12/02/17 04:31 Gram Stain - Preliminary Sputum Sputum Culture - Preliminary 12/01/17 22:20 Urine Culture - Preliminary Urine,Catheterized Gram Neg Bacilli Assessment and Plan Assessment: Assessment #1 pneumonia/sepsis. #2 acute hypoxic respiratory failure secondary to the above #3 acute renal failure which is improving #4 paroxysmal atrial fibrillation #5 multiple comorbid conditions including anemia. Plan #1 continue the hemodynamic support using vasopressors. #2 the abnormal cardiac enzymes is likely related to the hemodynamic instability as well as hypoxemia as well as acute renal failure #3 getting his current status I would consider a conservative medical approach and medical treatment only. #4 start the patient on amiodarone to keep him in normal sinus mechanism #5 start the patient on heparin IV for anticoagulation #6 add small dose of aspirin giving the diagnosis of acute non-ST elevation [place] #7 the echocardiogram was reviewed and revealed normal LV function #8 follow-up with the patient.
[2017-12-04] MEDS ORDERED: HEPARIN SODIUM,PORCINE/D5W PMX 25,000 UNIT in DEXTROSE/WATER 1 500ML.BAG IV SCH (07:45)
--- NOTE | 2017-12-04 08:27 | XR ---
EXAMINATION TYPE: XR chest 1V DATE OF EXAM: 12/04/2017 CLINICAL HISTORY: Difficulty breathing and pneumonia progress study. TECHNIQUE: Single AP portable upright view of the chest is obtained. COMPARISON: Chest x-ray from one day earlier and older studies. FINDINGS: There is interval extubation with removal of endotracheal and orogastric tubes. There is co ntinued worsening of right lung opacity with developing left basilar opacity. No large pleural effusi on or pneumothorax is seen bilaterally. Cardiac silhouette size is stable and upper limits of normal. Moderate to severe multilevel spurring throughout the thoracic spine is present. IMPRESSION: Interval extubation. Worsening diffuse right lung edema and/or infiltrates with developin g left basilar atelectasis and/or infiltrates is identified.
[2017-12-04] MEDS: HEPARIN SOD,PORK IN 0.45% NACL 25,000 UNIT in 0.45% NACL 1 500ML.BAG IV SCH (08:36)
[2017-12-04] MEDS: IPRATROPIUM-ALBUTEROL 3 ML NEB INHALATION SCH ×4 (08:53→19:53)
[2017-12-04] MEDS: PANTOPRAZOLE 40 MG/10 ML VIAL IVP SCH (09:30)
--- NOTE | 2017-12-04 11:46 | FL ---
EXAMINATION TYPE: FL barium swallow w video DATE OF EXAM: 12/04/2017 MODIFIED SWALLOW / DEGLUTITION STUDY CLINICAL HISTORY: Dysphagia. Possible aspiration pneumonia. TECHNIQUE: Deglutition study is performed utilizing thin liquid barium, honey and nectar thick liqui d barium, barium thick applesauce, and barium coated cracker. A total of 2 minutes 8 seconds of fluor oscopic time was utilized during procedure. Roughly 15 cine sequences were obtained. 0 images are babita ed to PACS. COMPARISON: None. FINDINGS: The oral and pharyngeal phases show satisfactory initiation with diminished epiglottis inve rsion with all modalities tested. There is some delay in chewing or mastication is seen with solid mo dalities tested. There is mild to moderate pharyngeal residuals identified. There is however no evide nce of penetration or aspiration with any modality tested. IMPRESSION: No penetration or aspiration noted. Please refer to speech therapist notes for further d etails if necessary.
[2017-12-04 11:57] LABS: Glucose,Whole Blood 137 mg/dL (75-99)
[2017-12-04 12:47] LABS: Glucose,Whole Blood 133 mg/dL (75-99)
--- NOTE | 2017-12-04 12:55 | P.PN ---
Subjective Progress Note Date: 12/04/17 Principal diagnosis: Acute respiratory failure, acute sepsis and septic shock, right sided pneumonia. Mr. Hester is a 72-year-old white male patient from [facility], was brought to the emergency department on 12/01/2017 at 2219 by ambulance, for concerns of abnormal labs, namely abnormal renal profile and white blood cell count, and altered mentation. Patient was increasingly lethargic at the [place] [facility]. Patient does have dementia at his baseline. He was recently hospitalized from 10/31/2017 through 11/04/2017 for Enterococcus faecalis urinary tract infection, acute kidney injury. Patient had significant clinical improvement, received IV fluid hydration, renal profile had improved, creatinine was at 1.74 at discharge. In the emergency department patient was increasingly more lethargic, became hypoxemic, with pulse ox of 84%, febrile, with a temp of 10 1F, he went into atrial fibrillation with rapid ventricular response. He was then intubated and placed on mechanical ventilator. Initial chest x-ray showed airspace opacities within the lung bases, low lung volumes and atelectasis, pneumonia could not be excluded. Follow-up chest x-rays post intubation showed ET tube at 4.5 cm above the elizabeth, which showed patchy pneumonic consolidation in the right lung. This morning chest x-ray shows increasing right lower lobe consolidation. Labs showed mild leukocytosis WBC of 13.8, hemoglobin 11.9, INR 1.3, B1 of 97, creatinine is 2.6, lites were unremarkable, plasma lactic acid 3.2, CK-MB is 9.5, troponin 0.072, proBNP 2530 , urinalysis showed large amount of leukocyte esterase, pyuria, and red blood cells. Urine drug screen was negative. Patient has received a total of 2.5 L of 0.9 normal saline and fluid boluses, he remains on mechanical ventilator, sedated, currently on Diprivan and at 15 mics per kilo per minute, Cardizem drip is infusing at a rate of 5 mg per hour, 0.9 at 20 ML per hour. Current vent settings assist control mode with a rate of 16, tidal volume 500, FiO2 of 100% and PEEP of 5. Blood gas this morning's pO2 of 82, pCO2 45, pH of 7.35 is done on FiO2 100%. Blood cultures, sputum and urine cultures were ordered, and are pending at this time. Patient has a chronic indwelling catheter, history of urinary retention, benign prostatic hypertrophy, and previous history of sacral ulcer. Urine output is still marginal, has been a total of 500 mL of cloudy urine since patient's arrival to the emergency department last night. Blood pressures are marginal, currently at 19/53, with a mean of 68, patient is tachypneic, breathing at 26 breaths per minute, he needs to be adequately sedated. He received a dose of Levaquin and Zosyn, we're consulted in regards to right lower lobe pneumonia, critical care management Patient was reevaluated today on 12/03/2017, remains on mechanical ventilation, ventilator settings are tidal volume of 500, assist control rate of 16 FiO2 of 40%, and PEEP of 5. ABG showed a pO2 of 116 pCO2 of 38 and pH of 7.40. Hence his FiO2 was decreased from 50% to 40%. Patient remains on norepinephrine at 10 mcg/m, he has excellent urine output, and as we wake him up today, I plan to taper and possibly discontinue norepinephrine. Patient has good urine output, renal functioning is significantly improving, and creatinine today is 1.90, definitely improved since yesterday. Blood cultures are positive for gram- negative bacilli, hence we have a Moffat organism causing his sepsis and septic shock, and a chest x-ray is showing some improvement in his right sided pneumonia, therefore, I decided to cancel bronchoscopy today. This is based on the fact that we have a specific organism to treat, and based on the fact that his chest x-ray is improving, and his hemodynamic status is also improving. Obviously patient is responding well to treatment over the last 24 hours. WBC count is 15.9 hemoglobin is 9.3 basic metabolic profile is normal. Sputum cultures are pending but blood cultures are negative for gram-negative bacilli. Patient remains on Zosyn and Levaquin. And his vancomycin will be discontinued. Patient remains on propofol, and I plan to hold propofol, and hopefully give the patient a spontaneous breathing trial later on today. Nutrition-mcqueen, the patient will continue on enteral feeding as per slag worker on the case. Patient was reevaluated today on 12/04/2017, he was extubated yesterday, tolerated the extubation relatively well. At night, the patient developed some shortness of breath, agitation, and he sounded wet according to the nurse taking care of the patient. Patient was given Lasix 40 mg IV push, placed on BiPAP, but he kept removing it. Did well overnight, and today he is on nasal cannula, not requiring any oxygen and not requiring BiPAP. Patient has dementia and he is is not verbal. He seems to be comfortable and not in any form of distress. His cultures however came back, and his urine is positive for group D enterococcus, his blood culture is positive for Proteus mirabilis and the most likely source of that is the urine unless proven otherwise. Final urine culture is pending. His sacral decub culture is still pending. Hence infectious disease sustainable design consultant will be notified about the cultures, and antibiotics would need to be changed accordingly. Patient is hemodynamically stable, off norepinephrine, he was on 2 g of norepinephrine earlier this morning. Hence this was discontinued, and we will likely transfer the patient out of the ICU today. Chest x-ray continues to show extensive airspace disease involving the right lung. There is also evidence of left basilar atelectasis and possibly infiltrate in the left lower lobe. Swallow evaluation was performed, no penetration or aspiration noted. Labs were reviewed his sodium seems to be coming up, and is 149 today, hence the patient will be given more free water. WBC count is down to 12.7 hemoglobin is 9.2. Creatinine is 1.6. Patient looks comfortable, in no distress, and he is off oxygen. O2 saturation is in the low 90s. Objective - Vital Signs Vital signs: Vital Signs Temp 99.1 F 12/04/17 08:00 Pulse 87 12/04/17 09:15 Resp 20 12/04/17 09:15 BP 90/56 12/03/17 15:40 Pulse Ox 92 L 12/04/17 09:15 Intake & Output 12/03/17 12/04/17 12/04/17 18:59 06:59 18:59 Intake Total 6820.622 6863.969 50 Output Total 1690 4145 250 Balance 241.813 -2557.031 -200 Weight 75.5 kg Intake: IV 1825.0 1450 50 Piperacillin-Tazobactam 3 50.0 100 .375 gm In Dextrose/Water 1 50ml.bag @ 12.5 mls/hr IVPB Q8H [facility] Rx#: [id number] Sodium Chloride 0.9% 1, 1650 1350 50 000 ml @ 150 mls/hr IV . Q6H40M [facility] Rx#:[id number] Vancomycin 1,500 mg In 125 Sodium Chloride 0.9% 250 ml @ 125 mls/hr IVPB Q48H [facility] Rx#:[id number] Intake, IV Titration 106.813 137.969 Amount Norepinephrin 16 mg-0.9% 4.813 137.969 Ns Pmx 16 mg In 250 ml @ Titrate IV .Q0M [facility] Rx#: [id number] Propofol 1,000 mg In 102.0 Empty Bag 1 bag @ Titrate IV .Q0M [facility] Rx#: [id number] Output: Urine 1690 4145 250 Other: Voiding Method Indwelling Catheter Indwelling Catheter ABP, PAP, CO, CI - Last Documented Arterial Blood Pressure 116/61 - Exam Physical Exam: Revealed a 72-year-old white male sedated, on room air, in no distress.. Head: Atraumatic, normocephalic. Patient is aphasic, nonverbal. . HEENT:[Neck is supple.] [No neck masses.] [No thyromegaly.] [No JVD.] PERRLA, EOMI, no icterus. Moist mucous membranes noted. Chest: [Crackles and rhonchi noted at the right base, left side is relatively clear. Symmetrical chest expansion was noted. No chest wall tenderness.] Cardiac Exam: [Normal S1 and S2, no S3 gallop, no murmur.] Abdomen: [Soft, nontender, no megaly, no rebound, no guarding, normal bowel sounds.] Extremities: [No clubbing, no edema, no cyanosis.] Neurological Exam: Patient is confused, nonverbal, aphasic, moves all extremities, does not follow instructions and does not respond appropriately to verbal stimuli. Skin: No rashes. There is however a large decubitus ulcer noted on admission. - Labs CBC & Chem 7: 12/04/17 03:30 12/04/17 03:30 Labs: Abnormal Lab Results - Last 24 Hours (Table) 12/03/17 12/03/17 12/03/17 Range/Units 13:42 17:53 20:55 WBC (3.8-10.6) k/uL RBC (4.30-5.90) m/uL Hgb (13.0-17.5) gm/dL Hct (39.0-53.0) % RDW (11.5-15.5) % Neutrophils # (1.3-7.7) k/uL Lymphocytes # (1.0-4.8) k/uL ABG pH 7.46 H (7.35-7.45) ABG pCO2 34 L (35-45) mmHg ABG pO2 109 H (83-108) mmHg ABG Total CO2 25 H (19-24) mmol/L ABG O2 Saturation 99.2 H (94-97) % Sodium 147 H (137-145) mmol/L Potassium 3.1 L (3.5-5.1) mmol/L Chloride 117 H (98-107) mmol/L BUN 50 H (9-20) mg/dL Creatinine 1.40 H (0.66-1.25) mg/dL Glucose 148 H (74-99) mg/dL POC Glucose (mg/dL) 151 H (75-99) mg/dL Calcium 7.7 L (8.4-10.2) mg/dL Phosphorus (2.5-4.5) mg/dL 12/04/17 12/04/17 12/04/17 Range/Units 00:08 03:30 03:30 WBC 12.7 H (3.8-10.6) k/uL RBC 3.16 L (4.30-5.90) m/uL Hgb 9.2 L (13.0-17.5) gm/dL Hct 28.6 L (39.0-53.0) % RDW 15.8 H (11.5-15.5) % Neutrophils # 11.8 H (1.3-7.7) k/uL Lymphocytes # 0.6 L (1.0-4.8) k/uL ABG pH (7.35-7.45) ABG pCO2 (35-45) mmHg ABG pO2 (83-108) mmHg ABG Total CO2 (19-24) mmol/L ABG O2 Saturation (94-97) % Sodium 149 H (137-145) mmol/L Potassium 3.4 L (3.5-5.1) mmol/L Chloride 118 H (98-107) mmol/L BUN 46 H (9-20) mg/dL Creatinine 1.60 H (0.66-1.25) mg/dL Glucose 113 H (74-99) mg/dL POC Glucose (mg/dL) 139 H (75-99) mg/dL Calcium 8.0 L (8.4-10.2) mg/dL Phosphorus 2.0 L (2.5-4.5) mg/dL 12/04/17 12/04/17 Range/Units 06:19 11:56 WBC (3.8-10.6) k/uL RBC (4.30-5.90) m/uL Hgb (13.0-17.5) gm/dL Hct (39.0-53.0) % RDW (11.5-15.5) % Neutrophils # (1.3-7.7) k/uL Lymphocytes # (1.0-4.8) k/uL ABG pH (7.35-7.45) ABG pCO2 (35-45) mmHg ABG pO2 (83-108) mmHg ABG Total CO2 (19-24) mmol/L ABG O2 Saturation (94-97) % Sodium (137-145) mmol/L Potassium (3.5-5.1) mmol/L Chloride (98-107) mmol/L BUN (9-20) mg/dL Creatinine (0.66-1.25) mg/dL Glucose (74-99) mg/dL POC Glucose (mg/dL) 120 H 137 H (75-99) mg/dL Calcium (8.4-10.2) mg/dL Phosphorus (2.5-4.5) mg/dL Microbiology - Last 24 Hours (Table) 12/02/17 04:31 Gram Stain - Final Sputum Sputum Culture - Final 12/03/17 14:55 Gram Stain - Preliminary Buttock Wound Culture - Preliminary 12/01/17 22:13 Blood Culture Gram Stain - Final Blood Blood Culture - Final Proteus mirabilis 12/02/17 16:55 Urine Culture - Preliminary Urine,Catheterized Group D Enterococcus 12/01/17 22:20 Urine Culture - Preliminary Urine,Catheterized Gram Neg Bacilli Assessment and Plan Assessment: Impression: 1 acute hypoxic respiratory failure secondary to gram-negative pneumonia, acute gram-negative sepsis and septic shock, 2 acute gram-negative pneumonia and sepsis with septic shock and bacteremia. This is secondary to Proteus mirabilis. 3 acute septic shock and sepsis secondary to pneumonia and secondary to urinary tract infection. 4 paroxysmal atrial fibrillation 5 acute on chronic kidney injury secondary to hypotension and septic shock, presented with a picture of acute tubular necrosis. 6 multiple comorbidities including dementia, chronic anemia, and acute on chronic kidney injury. Recommendation: Adjust antibiotics accordingly as per infectious disease on the case, consider transferring the patient out of the ICU, needs to be closely followed, patient is hemodynamically stable despite morning, and norepinephrine was discontinued. However he remains critically ill, and needs to be closely monitored on a monitor bed on selective. Prognosis remains relatively poor and guarded. We'll continue to follow closely. Time with Patient: Less than 30
[2017-12-04] MEDS: ASPIRIN 81 MG PO SCH (13:30)
--- NOTE | 2017-12-04 16:35 | P.PN ---
Subjective Patient was admitted for septic shock patient is on ventilator patient is presently on spontaneous breathing trial still remains on pressor support. Patient was started on Coumadin by cardiology patient underwent echocardiogram which showed normal ejection fraction patient is awake off sedation when I evaluated the patient patient remains on Zosyn and levofloxacin infectious disease evaluated the patient vancomycin was discontinued as patient has gram- negative bacteremia urine cultures are also positive for gram-negative bacilli. Patient has clear-cut infiltrate the right middle lobe. Unsure whether etiology of his sepsis is either lung or urine are both. Patient probably can be extubated if the he is doing well with spontaneous breathing trial. Creatinine improved to 1.5 from 2.5 remains on IV fluid heart rate is a low 100s. 12/04/2017 Patient's urine is positive for Proteus mirabilis probably the source of infection I suspicion is low that pneumonia source of infection. Patient is being treated with appropriate antibodies Zosyn patient repeat urine cultures also showing enterococcus although less than 100,000 colonies. Patient was extubated and patient is out of ICU. Constitutional: Denied any fatigue denied any fever. Cardio vascular: denied any chest pain, palpitations Gastrointestinal denied any nausea vomiting Pulmonary: Denied any shortness of breath cough Neurologic denied any new focal deficits Objective - Vital Signs Vital signs: Vital Signs Temp 98.7 F 12/04/17 12:00 Pulse 83 12/04/17 14:30 Resp 22 12/04/17 14:30 BP 117/64 12/04/17 14:30 Pulse Ox 96 12/04/17 13:30 Intake & Output 12/03/17 12/04/17 12/04/17 18:59 06:59 18:59 Intake Total 2453.412 2601.969 442.5 Output Total 1690 4145 1100 Balance 241.813 -2557.031 -657.5 Weight 75.5 kg 75.5 kg Intake: IV 1825.0 1450 342.5 Piperacillin-Tazobactam 3 50.0 100 12.5 .375 gm In Dextrose/Water 1 50ml.bag @ 12.5 mls/hr IVPB Q8H [facility] Rx#: [id number] Sodium Chloride 0.9% 1, 1650 1350 330 000 ml @ 40 mls/hr IV . Q24H [facility] Rx#:[id number] Vancomycin 1,500 mg In 125 Sodium Chloride 0.9% 250 ml @ 125 mls/hr IVPB Q48H [facility] Rx#:[id number] Intake, IV Titration 106.813 137.969 Amount Norepinephrin 16 mg-0.9% 4.813 137.969 Ns Pmx 16 mg In 250 ml @ Titrate IV .Q0M [facility] Rx#: [id number] Propofol 1,000 mg In 102.0 Empty Bag 1 bag @ Titrate IV .Q0M [facility] Rx#: [id number] Oral 100 Output: Urine 1690 4145 1100 Other: Voiding Method Indwelling Catheter Indwelling Catheter ABP, PAP, CO, CI - Last Documented Arterial Blood Pressure 148/74 - Exam PHYSICAL EXAMINATION: GENERAL: Patient is extubated alert oriented 3 HEENT: Pupils are round and equally reacting to light. EOMI. No scleral icterus. No conjunctival pallor. Normocephalic, atraumatic. No pharyngeal erythema. No thyromegaly. CARDIOVASCULAR: S1 and S2 present. No murmurs, rubs, or gallops. PULMONARY: Chest is clear to auscultation, no wheezing or crackles. ABDOMEN: Soft, nontender, nondistended, normoactive bowel sounds. No palpable organomegaly. MUSCULOSKELETAL: No joint swelling or deformity. EXTREMITIES: No cyanosis, clubbing, or pedal edema. NEUROLOGICAL: No focal deficits SKIN: No rashes. - Labs CBC & Chem 7: 12/04/17 03:30 12/04/17 03:30 Labs: Abnormal Lab Results - Last 24 Hours (Table) 12/03/17 12/03/17 12/04/17 Range/Units 17:53 20:55 00:08 WBC (3.8-10.6) k/uL RBC (4.30-5.90) m/uL Hgb (13.0-17.5) gm/dL Hct (39.0-53.0) % RDW (11.5-15.5) % Neutrophils # (1.3-7.7) k/uL Lymphocytes # (1.0-4.8) k/uL Sodium 147 H (137-145) mmol/L Potassium 3.1 L (3.5-5.1) mmol/L Chloride 117 H (98-107) mmol/L BUN 50 H (9-20) mg/dL Creatinine 1.40 H (0.66-1.25) mg/dL Glucose 148 H (74-99) mg/dL POC Glucose (mg/dL) 151 H 139 H (75-99) mg/dL Calcium 7.7 L (8.4-10.2) mg/dL Phosphorus (2.5-4.5) mg/dL 12/04/17 12/04/17 12/04/17 Range/Units 03:30 03:30 06:19 WBC 12.7 H (3.8-10.6) k/uL RBC 3.16 L (4.30-5.90) m/uL Hgb 9.2 L (13.0-17.5) gm/dL Hct 28.6 L (39.0-53.0) % RDW 15.8 H (11.5-15.5) % Neutrophils # 11.8 H (1.3-7.7) k/uL Lymphocytes # 0.6 L (1.0-4.8) k/uL Sodium 149 H (137-145) mmol/L Potassium 3.4 L (3.5-5.1) mmol/L Chloride 118 H (98-107) mmol/L BUN 46 H (9-20) mg/dL Creatinine 1.60 H (0.66-1.25) mg/dL Glucose 113 H (74-99) mg/dL POC Glucose (mg/dL) 120 H (75-99) mg/dL Calcium 8.0 L (8.4-10.2) mg/dL Phosphorus 2.0 L (2.5-4.5) mg/dL 12/04/17 12/04/17 Range/Units 11:56 12:43 WBC (3.8-10.6) k/uL RBC (4.30-5.90) m/uL Hgb (13.0-17.5) gm/dL Hct (39.0-53.0) % RDW (11.5-15.5) % Neutrophils # (1.3-7.7) k/uL Lymphocytes # (1.0-4.8) k/uL Sodium (137-145) mmol/L Potassium (3.5-5.1) mmol/L Chloride (98-107) mmol/L BUN (9-20) mg/dL Creatinine (0.66-1.25) mg/dL Glucose (74-99) mg/dL POC Glucose (mg/dL) 137 H 133 H (75-99) mg/dL Calcium (8.4-10.2) mg/dL Phosphorus (2.5-4.5) mg/dL Microbiology - Last 24 Hours (Table) 12/02/17 04:31 Gram Stain - Final Sputum Sputum Culture - Final 12/03/17 14:55 Gram Stain - Preliminary Buttock Wound Culture - Preliminary 12/01/17 22:13 Blood Culture Gram Stain - Final Blood Blood Culture - Final Proteus mirabilis 12/02/17 16:55 Urine Culture - Preliminary Urine,Catheterized Group D Enterococcus Assessment and Plan Plan: -Septic shock possibly secondary to either right lower lobe pneumonia or urinary tract infection patient does have bacteremia with gram-negative bacilli patient is presently on Zosyn . -Acute hypoxic respiratory failure secondary to sepsis as mentioned above -Acute renal failure secondary to acute tubular necrosis and improved with IV fluids patient had bit of pulmonary edema because of which she received Lasix IV fluids are presently being discontinued. -Atrial fibrillation: Precipitated by sepsis and new onset, patient was started on Coumadin today echocardiogram showed normal ejection fraction -Chronic Bhatt catheter -Benign prostatic hypertrophy -Deconditioning with the possibility of dementia baseline
[2017-12-04 16:39] LABS: Glucose,Whole Blood 161 mg/dL (75-99)
[2017-12-04] MEDS ORDERED: HEPARIN SOD,PORK IN 0.45% NACL 25,000 UNIT in 0.45% NACL 1 500ML.BAG IV SCH (19:30)
[2017-12-04 21:36] LABS: Glucose,Whole Blood 139 mg/dL (75-99)
--- NOTE | 2017-12-04 22:53 | PN ---
PROGRESS NOTE DATE OF SERVICE: 12/04/2017 REASON FOR FOLLOWUP: 1. Catheter-associated urinary tract infection with bacteremia. 2. Possible pneumonia. 3. Stage III sacral wound. INTERVAL HISTORY: The patient is afebrile. He has been extubated, has been breathing comfortably. He was slightly lethargic when seen on rounds this morning. No nausea, vomiting or any diarrhea has been reported. PHYSICAL EXAMINATION: Blood pressure 175/72 with a pulse of 90, temperature 97.6. He is 95% on room air. General description is an elderly male lying in bed in no distress. RESPIRATORY SYSTEM: Unlabored breathing with decreased breath sounds in the bases. No wheeze. HEART: S1, S2. Regular rate and rhythm. ABDOMEN: Soft. No tenderness. LABS: Hemoglobin 9.2, white count 12.7 with a BUN of 46, creatinine 1.60. Urine with Proteus mirabilis. Blood culture with gram negative. DIAGNOSTIC IMPRESSION AND PLAN: 1. Patient with a Proteus mirabilis catheter-associated urinary tract infection with secondary bacteremia. Currently covered with the Zosyn. Levaquin was discontinued because of the resistance of the pathogen. Repeat urine is showing Enterococcus; sensitivities pending. 2. Sacral wound. Local wound care with Aquacel Silver dressing and keeping the area off pressure. MMODL / IJN: [id number] /
[2017-12-05] MEDS: HEPARIN SODIUM,PORCINE 5,000 UNIT/ML 1 ML VIAL IV PRN ×2 (02:25→11:54)
[2017-12-05] MEDS: HEPARIN SOD,PORK IN 0.45% NACL 25,000 UNIT in 0.45% NACL 1 500ML.BAG IV SCH (04:14)
[2017-12-05] MEDS: PIPERACILLIN-TAZOBACTAM 3.375 GM in DEXTROSE/WATER 1 50ML.BAG IVPB SCH ×2 (04:25→11:46)
[2017-12-05 06:23] LABS: Glucose,Whole Blood 174 mg/dL (75-99)
[2017-12-05] MEDS: INSULIN ASPART 100 UNIT/ML 1 ML 10 ML VIAL SQ SCH ×4 (06:41→21:17)
[2017-12-05] MEDS: IPRATROPIUM-ALBUTEROL 3 ML NEB INHALATION SCH ×4 (07:14→20:51)
[2017-12-05] MEDS: ASPIRIN 81 MG PO SCH (07:54)
[2017-12-05] MEDS: PANTOPRAZOLE 40 MG/10 ML VIAL IVP SCH (07:55)
[2017-12-05 08:59] LABS: Anisocytosis Slight; Basophils % (A) 0 %; Eosinophils % (A) 0 %; HGB 10.4 gm/dL (13.0-17.5); Hypochromasia Slight; Lymphocytes # (A) 0.7 k/uL (1.0-4.8); Lymphocytes % (A) 7 %; MCH 28.8 pg (25.0-35.0); MCHC 31.5 g/dL (31.0-37.0); MCV 91.5 fL (80.0-100.0); Mean Platelet Volume 7.4; Monocytes # (A) 0.3 k/uL (0-1.0); Monocytes % (A) 3 %; Neutrophils # (A) 8.6 k/uL (1.3-7.7); Neutrophils % (A) 89 %; Platelet Count 265 k/uL (150-450); RBC 3.61 m/uL (4.30-5.90); RDW 16.1 % (11.5-15.5); WBC 9.7 k/uL (3.8-10.6)
[2017-12-05 09:00] LABS: INR 1.1 (<1.2); Partial Thromboplastin Time 28.4 sec (22.0-30.0); Prothrombin Time 10.4 sec (9.0-12.0)
[2017-12-05 09:09] LABS: Calcium 8.2 mg/dL (8.4-10.2); Magnesium 2.2 mg/dL (1.6-2.3); Phosphorus 2.5 mg/dL (2.5-4.5)
[2017-12-05] MEDS: POTASSIUM CHLORIDE 10 MEQ in WATER FOR INJECTION 1 100ML.BAG IVPB SCH ×5 (10:31→22:14)
--- NOTE | 2017-12-05 10:33 | P.PN ---
Subjective Progress Note Date: 12/05/17 Principal diagnosis: Acute hypoxic respiratory failure secondary to acute sepsis with septic shock and a right-sided pneumonia. Mr. Hester is a 72-year-old white male patient from [facility], was brought to the emergency department on 12/01/2017 at 2219 by ambulance, for concerns of abnormal labs, namely abnormal renal profile and white blood cell count, and altered mentation. Patient was increasingly lethargic at the custodial. Patient does have dementia at his baseline. He was recently hospitalized from 10/31/2017 through 11/04/2017 for Enterococcus faecalis urinary tract infection, acute kidney injury. Patient had significant clinical improvement, received IV fluid hydration, renal profile had improved, creatinine was at 1.74 at discharge. In the emergency department patient was increasingly more lethargic, became hypoxemic, with pulse ox of 84%, febrile, with a temp of 10 1F, he went into atrial fibrillation with rapid ventricular response. He was then intubated and placed on mechanical ventilator. Initial chest x-ray showed airspace opacities within the lung bases, low lung volumes and atelectasis, pneumonia could not be excluded. Follow-up chest x-rays post intubation showed ET tube at 4.5 cm above the elizabeth, which showed patchy pneumonic consolidation in the right lung. This morning chest x-ray shows increasing right lower lobe consolidation. Labs showed mild leukocytosis WBC of 13.8, hemoglobin 11.9, INR 1.3, B1 of 97, creatinine is 2.6, lites were unremarkable, plasma lactic acid 3.2, CK-MB is 9.5, troponin 0.072, proBNP 2530 , urinalysis showed large amount of leukocyte esterase, pyuria, and red blood cells. Urine drug screen was negative. Patient has received a total of 2.5 L of 0.9 normal saline and fluid boluses, he remains on mechanical ventilator, sedated, currently on Diprivan and at 15 mics per kilo per minute, Cardizem drip is infusing at a rate of 5 mg per hour, 0.9 at 20 ML per hour. Current vent settings assist control mode with a rate of 16, tidal volume 500, FiO2 of 100% and PEEP of 5. Blood gas this morning's pO2 of 82, pCO2 45, pH of 7.35 is done on FiO2 100%. Blood cultures, sputum and urine cultures were ordered, and are pending at this time. Patient has a chronic indwelling catheter, history of urinary retention, benign prostatic hypertrophy, and previous history of sacral ulcer. Urine output is still marginal, has been a total of 500 mL of cloudy urine since patient's arrival to the emergency department last night. Blood pressures are marginal, currently at 19/53, with a mean of 68, patient is tachypneic, breathing at 26 breaths per minute, he needs to be adequately sedated. He received a dose of Levaquin and Zosyn, we're consulted in regards to right lower lobe pneumonia, critical care management Patient was reevaluated today on 12/03/2017, remains on mechanical ventilation, ventilator settings are tidal volume of 500, assist control rate of 16 FiO2 of 40%, and PEEP of 5. ABG showed a pO2 of 116 pCO2 of 38 and pH of 7.40. Hence his FiO2 was decreased from 50% to 40%. Patient remains on norepinephrine at 10 mcg/m, he has excellent urine output, and as we wake him up today, I plan to taper and possibly discontinue norepinephrine. Patient has good urine output, renal functioning is significantly improving, and creatinine today is 1.90, definitely improved since yesterday. Blood cultures are positive for gram- negative bacilli, hence we have a Clarke organism causing his sepsis and septic shock, and a chest x-ray is showing some improvement in his right sided pneumonia, therefore, I decided to cancel bronchoscopy today. This is based on the fact that we have a specific organism to treat, and based on the fact that his chest x-ray is improving, and his hemodynamic status is also improving. Obviously patient is responding well to treatment over the last 24 hours. WBC count is 15.9 hemoglobin is 9.3 basic metabolic profile is normal. Sputum cultures are pending but blood cultures are negative for gram-negative bacilli. Patient remains on Zosyn and Levaquin. And his vancomycin will be discontinued. Patient remains on propofol, and I plan to hold propofol, and hopefully give the patient a spontaneous breathing trial later on today. Nutrition-mcqueen, the patient will continue on enteral feeding as per digital imager on the case. Patient was reevaluated today on 12/04/2017, he was extubated yesterday, tolerated the extubation relatively well. At night, the patient developed some shortness of breath, agitation, and he sounded wet according to the nurse taking care of the patient. Patient was given Lasix 40 mg IV push, placed on BiPAP, but he kept removing it. Did well overnight, and today he is on nasal cannula, not requiring any oxygen and not requiring BiPAP. Patient has dementia and he is is not verbal. He seems to be comfortable and not in any form of distress. His cultures however came back, and his urine is positive for group D enterococcus, his blood culture is positive for Proteus mirabilis and the most likely source of that is the urine unless proven otherwise. Final urine culture is pending. His sacral decub culture is still pending. Hence infectious disease dairy nutrition consultant will be notified about the cultures, and antibiotics would need to be changed accordingly. Patient is hemodynamically stable, off norepinephrine, he was on 2 g of norepinephrine earlier this morning. Hence this was discontinued, and we will likely transfer the patient out of the ICU today. Chest x-ray continues to show extensive airspace disease involving the right lung. There is also evidence of left basilar atelectasis and possibly infiltrate in the left lower lobe. Swallow evaluation was performed, no penetration or aspiration noted. Labs were reviewed his sodium seems to be coming up, and is 149 today, hence the patient will be given more free water. WBC count is down to 12.7 hemoglobin is 9.2. Creatinine is 1.6. Patient looks comfortable, in no distress, and he is off oxygen. O2 saturation is in the low 90s. The patient is seen today 12/05/2017 on the selective care unit. He is currently resting comfortably in bed. He is maintaining good O2 saturations in the mid 90s on room air. Temperature 99.6. He remains in atrial fibrillation with fairly good rate control currently in the 90s. He remains on heparin drip. Somewhat hypertensive. Blood cultures were positive for Proteus mirabilis. Urine culture positive for Enterococcus faecalis Herlinda. Wound cultures of the buttock positive for gram-negative bacilli. He is currently on Zosyn. White count 9.7. Hemoglobin 10.4. Sodium 152. Potassium 3.0 and being replaced. Chloride 119. Bicarb 29. Creatinine 1.38. Objective - Vital Signs Vital signs: Vital Signs Temp 99.6 F 12/05/17 08:00 Pulse 85 12/05/17 08:00 Resp 20 12/05/17 08:00 BP 183/72 12/05/17 08:00 Pulse Ox 95 12/05/17 08:00 Intake & Output 12/04/17 12/05/17 12/05/17 18:59 06:59 18:59 Intake Total 522.5 1302.946 Output Total 1100 3050 Balance -577.5 -1747.054 Weight 75.5 kg 70 kg Intake: IV 342.5 890 Heparin Sod,Pork in 0.45% 200 NaCl 25,000 unit In 0.45 % NaCl 1 500ml.bag @ 12 UNITS/KG/HR 18.12 mls/hr IV .Q24H MIKE Rx#: [id number] Piperacillin-Tazobactam 3 12.5 50 .375 gm In Dextrose/Water 1 50ml.bag @ 12.5 mls/hr IVPB Q8H MIKE Rx#: [id number] Sodium Chloride 0.9% 1, 330 640 000 ml @ 40 mls/hr IV . Q24H MIKE Rx#:[id number] Intake, IV Titration 80 412.946 Amount Heparin Sod,Pork in 0.45% 412.946 NaCl 25,000 unit In 0.45 % NaCl 1 500ml.bag @ 12 UNITS/KG/HR 18.12 mls/hr IV .Q24H MIKE Rx#: [id number] Sodium Chloride 0.9% 1, 80 000 ml @ 40 mls/hr IV . Q24H MIKE Rx#:[id number] Oral 100 Output: Urine 1100 3050 Other: Voiding Method Indwelling Catheter Indwelling Catheter Indwelling Catheter ABP, PAP, CO, CI - Last Documented Arterial Blood Pressure 148/74 - Exam GENERAL EXAM: Alert, comfortable in no apparent distress. HEAD: Normocephalic. EYES: Normal reaction of pupils, equal size. NOSE: Clear with pink turbinates. THROAT: No erythema or exudates. NECK: No masses, no JVD. CHEST: No chest wall deformity. LUNGS: Equal air entry with scattered rhonchi, more so on the right lung. Diminished CVS: S1 and S2 normal with no audible murmur, irregular rhythm. ABDOMEN: No hepatosplenomegaly, normal bowel sounds, no guarding or rigidity. SPINE: No scoliosis or deformity SKIN: Stage III sacral wound CENTRAL NERVOUS SYSTEM: Unable to assess, nonverbal, tone is normal in all 4 extremities. EXTREMITIES: There is no peripheral edema. No clubbing, no cyanosis. Peripheral pulses are intact. - Labs CBC & Chem 7: 12/05/17 08:14 12/05/17 08:14 Labs: Abnormal Lab Results - Last 24 Hours (Table) 12/04/17 12/04/17 12/04/17 Range/Units 11:56 12:43 16:26 RBC (4.30-5.90) m/uL Hgb (13.0-17.5) gm/dL Hct (39.0-53.0) % RDW (11.5-15.5) % Neutrophils # (1.3-7.7) k/uL Lymphocytes # (1.0-4.8) k/uL Sodium (137-145) mmol/L Potassium (3.5-5.1) mmol/L Chloride (98-107) mmol/L BUN (9-20) mg/dL Creatinine (0.66-1.25) mg/dL Glucose (74-99) mg/dL POC Glucose (mg/dL) 137 H 133 H 161 H (75-99) mg/dL Calcium (8.4-10.2) mg/dL 12/04/17 12/05/17 12/05/17 Range/Units 21:31 06:20 08:14 RBC 3.61 L (4.30-5.90) m/uL Hgb 10.4 L (13.0-17.5) gm/dL Hct 33.0 L (39.0-53.0) % RDW 16.1 H (11.5-15.5) % Neutrophils # 8.6 H (1.3-7.7) k/uL Lymphocytes # 0.7 L (1.0-4.8) k/uL Sodium (137-145) mmol/L Potassium (3.5-5.1) mmol/L Chloride (98-107) mmol/L BUN (9-20) mg/dL Creatinine (0.66-1.25) mg/dL Glucose (74-99) mg/dL POC Glucose (mg/dL) 139 H 174 H (75-99) mg/dL Calcium (8.4-10.2) mg/dL 12/05/17 Range/Units 08:14 RBC (4.30-5.90) m/uL Hgb (13.0-17.5) gm/dL Hct (39.0-53.0) % RDW (11.5-15.5) % Neutrophils # (1.3-7.7) k/uL Lymphocytes # (1.0-4.8) k/uL Sodium 152 H (137-145) mmol/L Potassium 3.0 L* (3.5-5.1) mmol/L Chloride 119 H (98-107) mmol/L BUN 50 H (9-20) mg/dL Creatinine 1.38 H (0.66-1.25) mg/dL Glucose 149 H (74-99) mg/dL POC Glucose (mg/dL) (75-99) mg/dL Calcium 8.2 L (8.4-10.2) mg/dL Microbiology - Last 24 Hours (Table) 12/02/17 16:55 Urine Culture - Final Urine,Catheterized Enterococcus faecalis 12/03/17 14:55 Gram Stain - Preliminary Buttock Wound Culture - Preliminary Gram Neg Bacilli 12/02/17 04:31 Gram Stain - Final Sputum Sputum Culture - Final Assessment and Plan Assessment: Impression: 1 acute hypoxic respiratory failure secondary to gram-negative pneumonia, acute gram-negative sepsis and septic shock, 2 acute gram-negative pneumonia and sepsis with septic shock and bacteremia. This is secondary to Proteus mirabilis. 3 acute septic shock and sepsis secondary to pneumonia and secondary to urinary tract infection secondary to Enterococcus faecalis 4 paroxysmal atrial fibrillation 5 acute on chronic kidney injury secondary to hypotension and septic shock, presented with a picture of acute tubular necrosis. 6 dementia 7 chronic anemia 8 acute on chronic kidney injury 9 Sacral wound culture positive for gram-negative bacilli. Plan: The patient was seen and evaluated by Dr. Hector. Labs and microbiology noted. Sputum culture shows no growth. We'll continue antibiotics per infectious disease. Continue bronchodilators. Aspiration precautions. His overall prognosis remains quite guarded and poor. Chest x-ray in a.m. We'll continue to follow. I, the cosigning physician, performed a history & physical examination of the patient. Lungs sounds with bilateral scattered rhonchi more so on the right lung. Maintaining good O2 saturations in the 90s on room air. I discussed the assessment and plan of care with my nurse practitioner, Laila Lazaro. I attest to the above note as dictated by her.
[2017-12-05 11:42] LABS: Glucose,Whole Blood 148 mg/dL (75-99)
--- NOTE | 2017-12-05 12:41 | P.PN ---
Subjective Progress Note Date: 12/05/17 This is a 72-year-old gentleman who we were asked to see for further cardiac evaluation of atrial fibrillation with RVR. Apparently the patient was hospitalized recently for urinary tract infection and he was discharged into an extended-care facility in stable medical condition. He was brought to the emergency room on 12/01/2017 by ambulance from the extended care facility with a change in mental status and increasing lethargy was noticed by the nurse over there. Beside that the patient does have dementia at his baseline. In the ER the patient was more lethargic and became hypoxic with a pulse oximetry of 84% and he was febrile with a temperature of more than 100 Fahrenheit. Beside that in the emergency department the patient went into an A. fib with RVR and was started on Cardizem drip and converted to normal sinus mechanism after that. In the ER the patient was intubated and placed on mechanical ventilator. Initial chest x-ray showed opacities within the lung base consistent with a pneumonia. The patient was admitted with pneumonia/sepsis and he was started on antibiotic. The patient also was found to be in acute renal failure with a creatinine of 2.6 when he presented to the hospital. Troponin was also noted to be elevated. He has since been extubated and has been transferred to telemetry unit. He continues on IV heparin. He is currently maintaining sinus rhythm with PVCs and PACs. He recently underwent video fluoroscopic swallowing evaluation that showed no penetration or aspiration. Echocardiogram showed low normal LV systolic function with an ejection fraction of 50-55%. Objective - Vital Signs Vital signs: Vital Signs Temp 99.6 F 12/05/17 08:00 Pulse 85 12/05/17 08:00 Resp 20 12/05/17 08:00 BP 183/72 12/05/17 08:00 Pulse Ox 95 12/05/17 08:00 Intake & Output 12/04/17 12/05/17 12/05/17 18:59 06:59 18:59 Intake Total 522.5 1302.946 Output Total 1100 3050 Balance -577.5 -1747.054 Weight 75.5 kg 70 kg Intake: IV 342.5 890 Heparin Sod,Pork in 0.45% 200 NaCl 25,000 unit In 0.45 % NaCl 1 500ml.bag @ 12 UNITS/KG/HR 18.12 mls/hr IV .Q24H [facility]KE Rx#: [id number] Piperacillin-Tazobactam 3 12.5 50 .375 gm In Dextrose/Water 1 50ml.bag @ 12.5 mls/hr IVPB Q8H [facility]KE Rx#: [id number] Sodium Chloride 0.9% 1, 330 640 000 ml @ 40 mls/hr IV . Q24H MIKE Rx#:[id number] Intake, IV Titration 80 412.946 Amount Heparin Sod,Pork in 0.45% 412.946 NaCl 25,000 unit In 0.45 % NaCl 1 500ml.bag @ 12 UNITS/KG/HR 18.12 mls/hr IV .Q24H MIKE Rx#: [id number] Sodium Chloride 0.9% 1, 80 000 ml @ 40 mls/hr IV . Q24H MIKE Rx#:[id number] Oral 100 Output: Urine 1100 3050 Other: Voiding Method Indwelling Catheter Indwelling Catheter Indwelling Catheter ABP, PAP, CO, CI - Last Documented Arterial Blood Pressure 148/74 - Exam PHYSICAL EXAMINATION: HEENT: Head is atraumatic, normocephalic. Pupils equal, round. Neck is supple. There is no elevated jugular venous pressure. HEART EXAMINATION: Heart sounds regular, S1 and S2 normal. No murmur or gallop heard. CHEST EXAMINATION: Lungs coarse rhonchi bilaterally. No chest wall tenderness is noted on palpation or with deep breathing. ABDOMEN: Soft, nontender. Bowel sounds are heard. No organomegaly noted. EXTREMITIES: 2+ peripheral pulses with no evidence of peripheral edema and no calf tenderness noted. NEUROLOGIC patient is awake, alert and oriented to person. . - Labs CBC & Chem 7: 12/05/17 08:14 12/05/17 08:14 Labs: Abnormal Lab Results - Last 24 Hours (Table) 12/04/17 12/04/17 12/04/17 Range/Units 11:56 12:43 16:26 RBC (4.30-5.90) m/uL Hgb (13.0-17.5) gm/dL Hct (39.0-53.0) % RDW (11.5-15.5) % Neutrophils # (1.3-7.7) k/uL Lymphocytes # (1.0-4.8) k/uL Sodium (137-145) mmol/L Potassium (3.5-5.1) mmol/L Chloride (98-107) mmol/L BUN (9-20) mg/dL Creatinine (0.66-1.25) mg/dL Glucose (74-99) mg/dL POC Glucose (mg/dL) 137 H 133 H 161 H (75-99) mg/dL Calcium (8.4-10.2) mg/dL 12/04/17 12/05/17 12/05/17 Range/Units 21:31 06:20 08:14 RBC 3.61 L (4.30-5.90) m/uL Hgb 10.4 L (13.0-17.5) gm/dL Hct 33.0 L (39.0-53.0) % RDW 16.1 H (11.5-15.5) % Neutrophils # 8.6 H (1.3-7.7) k/uL Lymphocytes # 0.7 L (1.0-4.8) k/uL Sodium (137-145) mmol/L Potassium (3.5-5.1) mmol/L Chloride (98-107) mmol/L BUN (9-20) mg/dL Creatinine (0.66-1.25) mg/dL Glucose (74-99) mg/dL POC Glucose (mg/dL) 139 H 174 H (75-99) mg/dL Calcium (8.4-10.2) mg/dL 12/05/17 Range/Units 08:14 RBC (4.30-5.90) m/uL Hgb (13.0-17.5) gm/dL Hct (39.0-53.0) % RDW (11.5-15.5) % Neutrophils # (1.3-7.7) k/uL Lymphocytes # (1.0-4.8) k/uL Sodium 152 H (137-145) mmol/L Potassium 3.0 L* (3.5-5.1) mmol/L Chloride 119 H (98-107) mmol/L BUN 50 H (9-20) mg/dL Creatinine 1.38 H (0.66-1.25) mg/dL Glucose 149 H (74-99) mg/dL POC Glucose (mg/dL) (75-99) mg/dL Calcium 8.2 L (8.4-10.2) mg/dL Microbiology - Last 24 Hours (Table) 12/01/17 22:20 Urine Culture - Preliminary Urine,Catheterized Proteus mirabilis Group D Enterococcus 12/02/17 16:55 Urine Culture - Final Urine,Catheterized Enterococcus faecalis 12/03/17 14:55 Gram Stain - Preliminary Buttock Wound Culture - Preliminary Gram Neg Bacilli 12/02/17 04:31 Gram Stain - Final Sputum Sputum Culture - Final Assessment and Plan Assessment: #1 pneumonia/sepsis. #2 acute hypoxic respiratory failure secondary to the above #3 acute renal failure which is improving #4 paroxysmal atrial fibrillation #5 multiple comorbid conditions including anemia. Plan: From parts back counter man perspective abnormal troponin is likely related to the hemodynamic instability, hypoxemia and acute renal failure. At this time we recommend conservative medical approach and medical treatment only. If patient has further atrial fibrillation will consider starting amiodarone po. We will resume home hydralazine 25mg BID. We will stop IV heparin and start Eliquis 5mg po BID. Continue to follow the patient and provide further recommendations accordingly. PLUMBING INSTALLER note has been reviewed, I agree with a documented findings and plan of care. Patient was seen and examined.
[2017-12-05] MEDS: hydrALAZINE HCL 25 MG TAB PO SCH ×2 (13:19→20:37)
--- NOTE | 2017-12-05 14:10 | XR ---
EXAMINATION TYPE: XR chest 2V DATE OF EXAM: 12/05/2017 COMPARISON: 12/04/2017 HISTORY: 72-year-old male rule out pulmonary edema, patient unresponsive TECHNIQUE: AP and lateral views FINDINGS: Heart upper limits of normal in size. Mild elongation of the thoracic aorta. Patchy opacity throughou t the right lung shows slight improved aeration. There is no progression in opacity in the left lung but with improving aeration at the left base. Old healed fracture deformities left-sided ribs. IMPRESSION: Overall aeration is improving from yesterday's exam. Residual patchy opacities remain throughout the right lung.
[2017-12-05] MEDS ORDERED: ENALAPRILAT 1.25 MG/ML 1 ML VIAL IVP PRN (15:15)
--- NOTE | 2017-12-05 15:46 | CDI ---
Documentation Clarification Form Date: 12/05/2017 03:43:00 PM CDS: Karen EscamillaKAMALA, CCDS Admit Date: 12/02/2017 Patient Name: Sabas Ngo Discharge Date: ATTENTION: The Clinical Documentation Specialists (CDI) and [facility] Coding Staff appreciate your assistance in clarifying documentation. Please respond to the clarification below the line at the bottom and electronically sign. The CDI & [facility] Coding staff will review the response and follow-up if needed. Please note: Queries are made part of the Legal Health Record. If you have any questions, please contact the author of this message via ITS. Dr. Christina Hector: 72 yo male, admitted with acute hypoxic respiratory failure secondary to RLL pneumonia, possibly healthcare acquired requiring intubation & mechanical ventilation, acute kidney injury & sepsis & septic shock with acute UTI. Per the pulmonary progress notes 12/03 - 12/05: Acute on chronic kidney failure. History/Risk Factors: Dementia, Anxiety, Smoker, possible Agent [place] Exposure Clinical Indicators: Sent from [place] with abnormal labs: elevated BUN/Creatinine & WBC. Admission BUN: 97, Current: 50 Admission Creatinine: 2.60, Current 1.38 Admission GFR: 24, Current 50 Baseline unknown or not documented. Treatment: Intubated on vent, IV fluid boluses x2, IV antibiotics, IV Cardizem. In order to capture the severity of condition, please clarify if the condition signifies: * CKD Stage 1 (GFR > 90) * CKD Stage 2 (GFR 60-89) * CKD Stage 3 (GFR 30-59) * CKD Stage 4 (GFR 15-29) * CKD Stage 5 (GFR <15) * Other, please specify * Unable to determine Please continue to document in your progress notes and discharge summary in order to capture severity of illness and risk of mortality. Include clinical findings that support your diagnosis. MTDD
--- NOTE | 2017-12-05 16:36 | P.PN ---
Subjective Progress Note Date: 12/05/17 Progress note being dictated for Dr. Arenas Interval history: atient was admitted for septic shock patient is on ventilator patient is presently on spontaneous breathing trial still remains on pressor support. Patient was started on Coumadin by cardiology patient underwent echocardiogram which showed normal ejection fraction patient is awake off sedation when I evaluated the patient patient remains on Zosyn and levofloxacin infectious disease evaluated the patient vancomycin was discontinued as patient has gram-negative bacteremia urine cultures are also positive for gram-negative bacilli. Patient has clear-cut infiltrate the right middle lobe. Unsure whether etiology of his sepsis is either lung or urine are both. Patient probably can be extubated if the he is doing well with spontaneous breathing trial. Creatinine improved to 1.5 from 2.5 remains on IV fluid heart rate is a low 100s. 12/04/2017 Patient's urine is positive for Proteus mirabilis probably the source of infection I suspicion is low that pneumonia source of infection. Patient is being treated with appropriate antibodies Zosyn patient repeat urine cultures also showing enterococcus although less than 100,000 colonies. Patient was extubated and patient is out of ICU. Constitutional: Denied any fatigue denied any fever. Cardio vascular: denied any chest pain, palpitations Gastrointestinal denied any nausea vomiting Pulmonary: Denied any shortness of breath cough Neurologic denied any new focal deficits 12/05/2017 maintained on Zosyn, nebulized bronchodilators .T-max 99.6, WBC 9.7. Chest x-ray reporting improvement with residual patchiness throughout right lung.Urine culture positive for enterococcus faecialis, blood cultures positive for Proteus Mirabilis. Buttock Wound cultures reporting gram-negative bacilli. MBS reporting no penetration, no aspiration. Echo reporting low normal LV function of 50-55%.telemetry sinus rhythm with PVCs, PACs.Potassium 3.0 receiving supplements. Heparin drip discontinued, now anticoagulated with Eliquis Renal function improving. Sodium 152, chloride 119. Objective - Vital Signs Vital signs: Vital Signs Temp 99.3 F 12/05/17 11:00 Pulse 98 12/05/17 15:47 Resp 20 12/05/17 11:00 BP 181/63 12/05/17 11:00 Pulse Ox 97 12/05/17 11:00 Intake & Output 12/04/17 12/05/17 12/05/17 18:59 06:59 18:59 Intake Total 522.5 1302.946 213.648 Output Total 1100 3050 Balance -577.5 -1747.054 213.648 Weight 75.5 kg 70 kg Intake: IV 342.5 890 Heparin Sod,Pork in 0.45% 200 NaCl 25,000 unit In 0.45 % NaCl 1 500ml.bag @ 12 UNITS/KG/HR 18.12 mls/hr IV .Q24H [facility] Rx#: [id number] Piperacillin-Tazobactam 3 12.5 50 .375 gm In Dextrose/Water 1 50ml.bag @ 12.5 mls/hr IVPB Q8H [facility] Rx#: [id number] Sodium Chloride 0.9% 1, 330 640 000 ml @ 40 mls/hr IV . Q24H [facility] Rx#:[id number] Intake, IV Titration 80 412.946 213.648 Amount Heparin Sod,Pork in 0.45% 412.946 213.648 NaCl 25,000 unit In 0.45 % NaCl 1 500ml.bag @ 12 UNITS/KG/HR 18.12 mls/hr IV .Q24H [facility] Rx#: [id number] Sodium Chloride 0.9% 1, 80 000 ml @ 40 mls/hr IV . Q24H [facility] Rx#:[id number] Oral 100 Output: Urine 1100 3050 Other: Voiding Method Indwelling Catheter Indwelling Catheter Indwelling Catheter # Bowel Movements 1 ABP, PAP, CO, CI - Last Documented Arterial Blood Pressure 148/74 - Exam GENERAL: Patient is extubated alert oriented 3 HEENT: Pupils are round and equally reacting to light. EOMI. No scleral icterus. No conjunctival pallor. Normocephalic, atraumatic. No pharyngeal erythema. No thyromegaly. CARDIOVASCULAR: S1 and S2 present. No murmurs, rubs, or gallops. PULMONARY: Chest is clear to auscultation, scattered rhonchi throughout, no wheezing or crackles. ABDOMEN: Soft, nontender, nondistended, normoactive bowel sounds. No palpable organomegaly. MUSCULOSKELETAL: No joint swelling or deformity. EXTREMITIES: No cyanosis, clubbing, or pedal edema. NEUROLOGICAL: No focal deficits SKIN: No rashes. Microbiology 12/01/17 22:20 Urine,Catheterized Urine Culture - Preliminary Proteus mirabilis Group D Enterococcus 12/02/17 16:55 Urine,Catheterized Urine Culture - Final Enterococcus faecalis 12/03/17 14:55 Buttock Gram Stain - Preliminary 12/03/17 14:55 Buttock Wound Culture - Preliminary Gram Neg Bacilli 12/02/17 04:31 Sputum Gram Stain - Final 12/02/17 04:31 Sputum Sputum Culture - Final 12/01/17 22:13 Blood Blood Culture Gram Stain - Final 12/01/17 22:13 Blood Blood Culture - Final Proteus mirabilis 12/01/17 22:13 Blood Blood Culture - Final - Labs CBC & Chem 7: 12/05/17 08:14 12/05/17 08:14 Labs: Abnormal Lab Results - Last 24 Hours (Table) 12/04/17 12/04/17 12/05/17 Range/Units 16:26 21:31 06:20 RBC (4.30-5.90) m/uL Hgb (13.0-17.5) gm/dL Hct (39.0-53.0) % RDW (11.5-15.5) % Neutrophils # (1.3-7.7) k/uL Lymphocytes # (1.0-4.8) k/uL Sodium (137-145) mmol/L Potassium (3.5-5.1) mmol/L Chloride (98-107) mmol/L BUN (9-20) mg/dL Creatinine (0.66-1.25) mg/dL Glucose (74-99) mg/dL POC Glucose (mg/dL) 161 H 139 H 174 H (75-99) mg/dL Calcium (8.4-10.2) mg/dL 12/05/17 12/05/17 12/05/17 Range/Units 08:14 08:14 11:33 RBC 3.61 L (4.30-5.90) m/uL Hgb 10.4 L (13.0-17.5) gm/dL Hct 33.0 L (39.0-53.0) % RDW 16.1 H (11.5-15.5) % Neutrophils # 8.6 H (1.3-7.7) k/uL Lymphocytes # 0.7 L (1.0-4.8) k/uL Sodium 152 H (137-145) mmol/L Potassium 3.0 L* (3.5-5.1) mmol/L Chloride 119 H (98-107) mmol/L BUN 50 H (9-20) mg/dL Creatinine 1.38 H (0.66-1.25) mg/dL Glucose 149 H (74-99) mg/dL POC Glucose (mg/dL) 148 H (75-99) mg/dL Calcium 8.2 L (8.4-10.2) mg/dL Microbiology - Last 24 Hours (Table) 12/01/17 22:20 Urine Culture - Preliminary Urine,Catheterized Proteus mirabilis Group D Enterococcus 12/02/17 16:55 Urine Culture - Final Urine,Catheterized Enterococcus faecalis 12/03/17 14:55 Gram Stain - Preliminary Buttock Wound Culture - Preliminary Gram Neg Bacilli Assessment and Plan Assessment: -Septic shock possibly secondary to either right lower lobe pneumonia or urinary tract infection with enterococcus faecalis, patient does have bacteremia with gram-negative bacilli on Zosyn . -Acute hypoxic respiratory failure secondary to sepsis , pneumonia as mentioned above -Acute renal failure secondary to acute tubular necrosis and improved with IV fluids patient had bit of pulmonary edema because of which she received Lasix IV -Paroximal Atrial fibrillation: Precipitated by sepsis and new onset, echocardiogram showed normal ejection fraction -Chronic Bhatt catheter -Benign prostatic hypertrophy -Deconditioning with the possibility of dementia baseline Plan: Continue current medication regime , nebulized bronchodilators, monitoring and symptomatic treatment. Antibiotics as per infectious disease Amiodarone being discussed ;anticoagulation/antiarrhythmics as per cardiology. Strict aspiration precautions with diet recommendations as per speech therapy. Family at bedside, updated on plan of care including potential discharge to subacute rehab tomorrow. The impression and plan of care has been dictated as directed. : I performed a history and examination of this patient, discussed the same with the dictator. I agree with the dictator's note ,documented as a scribe. Any additional findings or plans will be noted.
[2017-12-05 17:03] LABS: Glucose,Whole Blood 132 mg/dL (75-99)
[2017-12-05] MEDS: APIXABAN 5 MG TAB PO SCH (18:30)
[2017-12-05] MEDS ORDERED: VANCOMYCIN IV PER PHARMACY 1 EACH MISC MISCELLANE PRN (20:14)
[2017-12-05] MEDS ORDERED: VANCOMYCIN 1,500 MG in SODIUM CHLORIDE 0.9% 250 ML IVPB ONE (20:30)
[2017-12-05] MEDS: ACETAMINOPHEN IV (For NPO) 1,000 MG in EMPTY BAG 1 BAG IVPB SCH (20:33)
--- NOTE | 2017-12-05 20:43 | CT ---
EXAMINATION TYPE: CT brain wo con DATE OF EXAM: 12/05/2017 COMPARISON: None HISTORY: Altered mental status. CT DLP: 788.7 mGycm Automated exposure control for dose reduction was used. FINDINGS: There is enlargement of the ventricles. There is cerebral cortical atrophy. There is no mass effect n or midline shift. There is no sign of intracranial hemorrhage. There is some hypodensity in the periv entricular white matter. Calvarium is intact. IMPRESSION: CEREBRAL ATROPHY AND CHRONIC SMALL VESSEL ISCHEMIA. NO ACUTE INTRACRANIAL ABNORMALITY.
--- NOTE | 2017-12-05 21:04 | PN ---
PROGRESS NOTE DATE OF SERVICE: 12/04/2017. REASON FOR FOLLOWUP: 1. Proteus mirabilis bacteremia secondary to catheter-associated urinary tract infection. 2. Aspiration pneumonia. 3. Sacral wound with culture positive for methicillin-resistant Staphylococcus aureus. 4. New fever. INTERVAL HISTORY: The patient is spiking a fever this evening of 101.9 degrees Fahrenheit. The patient is hemodynamically stable. He seemed to be slightly lethargic and unable to provide any history. No nausea or vomiting has been noticed or any diarrhea. REVIEW OF SYSTEMS: Positive points mentioned in HPI. Rest of systems to be negative. PAST MEDICAL AND SURGICAL HISTORY: Reviewed. No change. MEDICATIONS: Reviewed. EXAMINATION: Blood pressure 162/91 with a pulse of 96, temperature 101.9. He is 94% on room air. General description is an elderly male lying in bed in no distress. HEENT shows slight pallor. No scleral icterus. Oral mucous membranes moist. NECK: Trachea central. No thyromegaly. LUNGS: Unlabored breathing. Decreased breath sounds in the bases. No wheeze or crackle. HEART: S1, S2. Regular rate and rhythm. ABDOMEN: Soft. No tenderness. No guarding or rigidity. EXTREMITIES: No edema of feet. SKIN: No rash or mass palpable. Neurologically, patient is awake; however, slightly lethargic. Orientation could not be determined. LABS: Hemoglobin is 10.4, white count of 9.7, BUN of 15, creatinine is 1.38. DIAGNOSTIC IMPRESSION AND PLAN: Patient admitted to hospital with sepsis, source is a catheter-associated urinary tract infection. Patient did have a Proteus mirabilis growing from the urine as well as above, also showing Enterococcus, which is penicillin sensitive. Currently covered with Zosyn. However, the patient now has a new fever. Consult will be for possibility of a recurrent aspiration pneumonitis for which swallowing needs to be evaluated, though with the x-ray done this morning shows some overall improvement in aeration, the residual opacity presently within the right side and the sacral wound culture now showing positive methicillin-resistant Staphylococcus aureus. At this time, we will repeat blood cultures repeat UA and cultures, try to obtain a sputum. Antibiotic will be adjusted to Unasyn and vancomycin, discontinue Zosyn and further adjust antibiotic on the basis of the clinical response as well as culture. Continue supportive care. MMODL / IJN: [id number] /
[2017-12-05 21:17] LABS: Glucose,Whole Blood 148 mg/dL (75-99)
[2017-12-05 21:19] LABS: Appearance,Urine Cloudy (Clear); Bilirubin,Urine Negative (Negative); Blood,Urine Large (Negative); Cellular Casts,Urine 4 /lpf (0); Color,Urine Yellow; Glucose,Urine (UA) Negative (Negative); Granular Casts,Urine 21 /lpf (0); Ketones,Urine Negative (Negative); Leukocyte Esterase,Urine Large (Negative); Mucus,Urine Rare /hpf; Nitrite,Urine Negative (Negative); PH, Urine 6.5 (5.0-8.0); Protein,Urine 1+ (Negative); RBC,Urine >182 /hpf (0-5); Specific Gravity,Urine 1.011 (1.001-1.035); Urobilinogen,Urine <2.0 mg/dL (<2.0); WBC,Urine 141 /hpf (0-5)
[2017-12-05] MEDS ORDERED: Potassium Replacement Protocol 1 EACH MISC MISCELLANE PRN ×2 (21:26→21:48)
[2017-12-05 21:36] LABS: Calcium 8.2 mg/dL (8.4-10.2); Potassium 3.5 mmol/L (3.5-5.1)
[2017-12-05] MEDS ORDERED: POTASSIUM CHLORIDE 10 MEQ in WATER FOR INJECTION 1 100ML.BAG IVPB SCH (22:00)
[2017-12-06 03:55] LABS: Glucose,Whole Blood 152 mg/dL (75-99)
[2017-12-06] MEDS: POTASSIUM CHLORIDE 10 MEQ in WATER FOR INJECTION 1 100ML.BAG IVPB SCH ×7 (04:51→16:46)
[2017-12-06] MEDS: ACETAMINOPHEN IV (For NPO) 1,000 MG in EMPTY BAG 1 BAG IVPB SCH ×3 (04:52→12:23)
[2017-12-06] MEDS: AMPICILLIN-SULBACTAM 3 GM in SODIUM CHLORIDE 0.9% 100 ML IVPB SCH ×5 (04:53→23:38)
[2017-12-06 06:00] LABS: Glucose,Whole Blood 142 mg/dL (75-99)
[2017-12-06 06:04] LABS: Anisocytosis Slight; Basophils % (A) 0 %; Eosinophils % (A) 0 %; HCT 34.7 % (39.0-53.0); HGB 10.9 gm/dL (13.0-17.5); Hypochromasia Slight; Lymphocytes # (A) 0.9 k/uL (1.0-4.8); Lymphocytes % (A) 9 %; MCH 28.8 pg (25.0-35.0); MCHC 31.3 g/dL (31.0-37.0); MCV 91.8 fL (80.0-100.0); Mean Platelet Volume 7.5; Monocytes # (A) 0.4 k/uL (0-1.0); Monocytes % (A) 4 %; Neutrophils # (A) 8.5 k/uL (1.3-7.7); Neutrophils % (A) 86 %; Platelet Count 301 k/uL (150-450); RBC 3.78 m/uL (4.30-5.90); RDW 16.1 % (11.5-15.5); WBC 9.9 k/uL (3.8-10.6)
[2017-12-06 06:14] LABS: INR 1.1 (<1.2)
[2017-12-06] MEDS: INSULIN ASPART 100 UNIT/ML 1 ML 10 ML VIAL SQ SCH ×4 (06:22→21:10)
[2017-12-06 06:36] LABS: Calcium 8.4 mg/dL (8.4-10.2); Potassium 3.3 mmol/L (3.5-5.1)
[2017-12-06] MEDS: APIXABAN 5 MG TAB PO SCH ×2 (08:01→19:49)
[2017-12-06] MEDS: PANTOPRAZOLE 40 MG/10 ML VIAL IVP SCH (08:03)
[2017-12-06] MEDS: hydrALAZINE HCL 25 MG TAB PO SCH ×2 (08:03→19:49)
[2017-12-06] MEDS: ASPIRIN 81 MG PO SCH (08:04)
[2017-12-06] MEDS: IPRATROPIUM-ALBUTEROL 3 ML NEB INHALATION SCH ×4 (08:34→18:51)
--- NOTE | 2017-12-06 10:40 | P.PN ---
Subjective Progress Note Date: 12/06/17 Principal diagnosis: Acute hypoxic respiratory failure secondary to acute sepsis with septic shock and a right-sided pneumonia. Mr. Hester is a 72-year-old white male patient from [facility], was brought to the emergency department on 12/01/2017 at 2219 by ambulance, for concerns of abnormal labs, namely abnormal renal profile and white blood cell count, and altered mentation. Patient was increasingly lethargic at the [facility]. Patient does have dementia at his baseline. He was recently hospitalized from 10/31/2017 through 11/04/2017 for Enterococcus faecalis urinary tract infection, acute kidney injury. Patient had significant clinical improvement, received IV fluid hydration, renal profile had improved, creatinine was at 1.74 at discharge. In the emergency department patient was increasingly more lethargic, became hypoxemic, with pulse ox of 84%, febrile, with a temp of 10 1F, he went into atrial fibrillation with rapid ventricular response. He was then intubated and placed on mechanical ventilator. Initial chest x-ray showed airspace opacities within the lung bases, low lung volumes and atelectasis, pneumonia could not be excluded. Follow-up chest x-rays post intubation showed ET tube at 4.5 cm above the elizabeth, which showed patchy pneumonic consolidation in the right lung. This morning chest x-ray shows increasing right lower lobe consolidation. Labs showed mild leukocytosis WBC of 13.8, hemoglobin 11.9, INR 1.3, B1 of 97, creatinine is 2.6, lites were unremarkable, plasma lactic acid 3.2, CK-MB is 9.5, troponin 0.072, proBNP 2530 , urinalysis showed large amount of leukocyte esterase, pyuria, and red blood cells. Urine drug screen was negative. Patient has received a total of 2.5 L of 0.9 normal saline and fluid boluses, he remains on mechanical ventilator, sedated, currently on Diprivan and at 15 mics per kilo per minute, Cardizem drip is infusing at a rate of 5 mg per hour, 0.9 at 20 ML per hour. Current vent settings assist control mode with a rate of 16, tidal volume 500, FiO2 of 100% and PEEP of 5. Blood gas this morning's pO2 of 82, pCO2 45, pH of 7.35 is done on FiO2 100%. Blood cultures, sputum and urine cultures were ordered, and are pending at this time. Patient has a chronic indwelling catheter, history of urinary retention, benign prostatic hypertrophy, and previous history of sacral ulcer. Urine output is still marginal, has been a total of 500 mL of cloudy urine since patient's arrival to the emergency department last night. Blood pressures are marginal, currently at 19/53, with a mean of 68, patient is tachypneic, breathing at 26 breaths per minute, he needs to be adequately sedated. He received a dose of Levaquin and Zosyn, we're consulted in regards to right lower lobe pneumonia, critical care management Patient was reevaluated today on 12/03/2017, remains on mechanical ventilation, ventilator settings are tidal volume of 500, assist control rate of 16 FiO2 of 40%, and PEEP of 5. ABG showed a pO2 of 116 pCO2 of 38 and pH of 7.40. Hence his FiO2 was decreased from 50% to 40%. Patient remains on norepinephrine at 10 mcg/m, he has excellent urine output, and as we wake him up today, I plan to taper and possibly discontinue norepinephrine. Patient has good urine output, renal functioning is significantly improving, and creatinine today is 1.90, definitely improved since yesterday. Blood cultures are positive for gram- negative bacilli, hence we have a [place] organism causing his sepsis and septic shock, and a chest x-ray is showing some improvement in his right sided pneumonia, therefore, I decided to cancel bronchoscopy today. This is based on the fact that we have a specific organism to treat, and based on the fact that his chest x-ray is improving, and his hemodynamic status is also improving. Obviously patient is responding well to treatment over the last 24 hours. WBC count is 15.9 hemoglobin is 9.3 basic metabolic profile is normal. Sputum cultures are pending but blood cultures are negative for gram-negative bacilli. Patient remains on Zosyn and Levaquin. And his vancomycin will be discontinued. Patient remains on propofol, and I plan to hold propofol, and hopefully give the patient a spontaneous breathing trial later on today. Nutrition-mcqueen, the patient will continue on enteral feeding as per streets and buildings decorator on the case. Patient was reevaluated today on 12/04/2017, he was extubated yesterday, tolerated the extubation relatively well. At night, the patient developed some shortness of breath, agitation, and he sounded wet according to the nurse taking care of the patient. Patient was given Lasix 40 mg IV push, placed on BiPAP, but he kept removing it. Did well overnight, and today he is on nasal cannula, not requiring any oxygen and not requiring BiPAP. Patient has dementia and he is is not verbal. He seems to be comfortable and not in any form of distress. His cultures however came back, and his urine is positive for group D enterococcus, his blood culture is positive for Proteus mirabilis and the most likely source of that is the urine unless proven otherwise. Final urine culture is pending. His sacral decub culture is still pending. Hence infectious disease guidance consultant will be notified about the cultures, and antibiotics would need to be changed accordingly. Patient is hemodynamically stable, off norepinephrine, he was on 2 g of norepinephrine earlier this morning. Hence this was discontinued, and we will likely transfer the patient out of the ICU today. Chest x-ray continues to show extensive airspace disease involving the right lung. There is also evidence of left basilar atelectasis and possibly infiltrate in the left lower lobe. Swallow evaluation was performed, no penetration or aspiration noted. Labs were reviewed his sodium seems to be coming up, and is 149 today, hence the patient will be given more free water. WBC count is down to 12.7 hemoglobin is 9.2. Creatinine is 1.6. Patient looks comfortable, in no distress, and he is off oxygen. O2 saturation is in the low 90s. The patient is seen today 12/05/2017 on the selective care unit. He is currently resting comfortably in bed. He is maintaining good O2 saturations in the mid 90s on room air. Temperature 99.6. He remains in atrial fibrillation with fairly good rate control currently in the 90s. He remains on heparin drip. Somewhat hypertensive. Blood cultures were positive for Proteus mirabilis. Urine culture positive for Enterococcus faecalis Herlinda. Wound cultures of the buttock positive for gram-negative bacilli. He is currently on Zosyn. White count 9.7. Hemoglobin 10.4. Sodium 152. Potassium 3.0 and being replaced. Chloride 119. Bicarb 29. Creatinine 1.38. The patient is seen again today 12/06/2017 on the selective care unit. He is alert and moving all fours. He is having issues with fevers again. His temp earlier this morning was 101.6. White count 9.9. Wound cultures are positive for Proteus mirabilis and presumptive MRSA, urine culture positive for Enterococcus faecalis, Proteus mirabilis. Blood culture positive for Proteus mirabilis. He is currently on vancomycin and Unasyn. ID is on the case. Computed tomography scan of the brain revealed cerebral atrophy and chronic small vessel ischemia but no acute intracranial abnormalities. He remains in atrial fibrillation current rate in the 90s. Anticoagulated with Eliquis. Objective - Vital Signs Vital signs: Vital Signs Temp 98.3 F 12/06/17 05:51 Pulse 92 12/06/17 08:43 Resp 16 12/06/17 04:00 BP 137/60 12/06/17 04:00 Pulse Ox 93 L 12/06/17 04:00 Intake & Output 12/05/17 12/06/17 12/06/17 18:59 06:59 18:59 Intake Total 407.046 9771 Output Total 4850 Balance 213.648 -3400 Weight 70.5 kg Intake: IV 1450 ACETAMINOPHEN IV (For NPO 800 ) 1,000 mg In Empty Bag 1 bag @ 400 mls/hr IVPB Q6HR [facility] Rx#:[id number] Potassium Chloride 10 meq 200 In Water For Injection 1 100ml.bag @ 100 mls/hr IVPB Q1HR [facility]KE Rx#: [id number] Sodium Chloride 0.9% 1, 200 000 ml @ 40 mls/hr IV . Q24H [facility] Rx#:[id number] Vancomycin 1,250 mg In 250 Sodium Chloride 0.9% 250 ml @ 125 mls/hr IVPB Q16H [facility] Rx#:[id number] Intake, IV Titration 213.648 Amount Heparin Sod,Pork in 0.45% 213.648 NaCl 25,000 unit In 0.45 % NaCl 1 500ml.bag @ 12 UNITS/KG/HR 18.12 mls/hr IV .Q24H [facility] Rx#: [id number] Output: Urine 4850 Other: Voiding Method Indwelling Catheter Indwelling Catheter # Bowel Movements 1 ABP, PAP, CO, CI - Last Documented Arterial Blood Pressure 148/74 - Exam GENERAL EXAM: Alert, restless. Moving all fours. HEAD: Normocephalic. EYES: Normal reaction of pupils, equal size. NOSE: Clear with pink turbinates. THROAT: No erythema or exudates. NECK: No masses, no JVD. CHEST: No chest wall deformity. LUNGS: Equal air entry with scattered rhonchi, more so on the right lung. Diminished CVS: S1 and S2 normal with no audible murmur, irregular rhythm. ABDOMEN: No hepatosplenomegaly, normal bowel sounds, no guarding or rigidity. SPINE: No scoliosis or deformity SKIN: Stage III sacral wound CENTRAL NERVOUS SYSTEM: Unable to assess, nonverbal, tone is normal in all 4 extremities. EXTREMITIES: There is no peripheral edema. No clubbing, no cyanosis. Peripheral pulses are intact. - Labs CBC & Chem 7: 12/06/17 05:21 12/06/17 05:21 Labs: Abnormal Lab Results - Last 24 Hours (Table) 12/05/17 12/05/17 12/05/17 Range/Units 11:33 16:33 17:33 RBC (4.30-5.90) m/uL Hgb (13.0-17.5) gm/dL Hct (39.0-53.0) % RDW (11.5-15.5) % Neutrophils # (1.3-7.7) k/uL Lymphocytes # (1.0-4.8) k/uL APTT 36.8 H (22.0-30.0) sec Sodium (137-145) mmol/L Potassium (3.5-5.1) mmol/L Chloride (98-107) mmol/L BUN (9-20) mg/dL Creatinine (0.66-1.25) mg/dL Glucose (74-99) mg/dL POC Glucose (mg/dL) 148 H 132 H (75-99) mg/dL Calcium (8.4-10.2) mg/dL Urine Protein (Negative) Urine Blood (Negative) Ur Leukocyte Esterase (Negative) Urine RBC (0-5) /hpf Urine WBC (0-5) /hpf Urine WBC Clumps (None) /hpf Urine Mucus (None) /hpf 12/05/17 12/05/17 12/05/17 Range/Units 20:30 21:00 21:16 RBC (4.30-5.90) m/uL Hgb (13.0-17.5) gm/dL Hct (39.0-53.0) % RDW (11.5-15.5) % Neutrophils # (1.3-7.7) k/uL Lymphocytes # (1.0-4.8) k/uL APTT (22.0-30.0) sec Sodium 152 H (137-145) mmol/L Potassium (3.5-5.1) mmol/L Chloride 120 H* (98-107) mmol/L BUN 48 H (9-20) mg/dL Creatinine 1.40 H (0.66-1.25) mg/dL Glucose 140 H (74-99) mg/dL POC Glucose (mg/dL) 148 H (75-99) mg/dL Calcium 8.2 L (8.4-10.2) mg/dL Urine Protein 1+ H (Negative) Urine Blood Large H (Negative) Ur Leukocyte Esterase Large H (Negative) Urine RBC >182 H (0-5) /hpf Urine WBC 141 H (0-5) /hpf Urine WBC Clumps Moderate H (None) /hpf Urine Mucus Rare H (None) /hpf 12/06/17 12/06/17 12/06/17 Range/Units 03:54 05:21 05:21 RBC 3.78 L (4.30-5.90) m/uL Hgb 10.9 L (13.0-17.5) gm/dL Hct 34.7 L (39.0-53.0) % RDW 16.1 H (11.5-15.5) % Neutrophils # 8.5 H (1.3-7.7) k/uL Lymphocytes # 0.9 L (1.0-4.8) k/uL APTT (22.0-30.0) sec Sodium 152 H (137-145) mmol/L Potassium 3.3 L (3.5-5.1) mmol/L Chloride 117 H (98-107) mmol/L BUN 43 H (9-20) mg/dL Creatinine 1.40 H (0.66-1.25) mg/dL Glucose 148 H (74-99) mg/dL POC Glucose (mg/dL) 152 H (75-99) mg/dL Calcium (8.4-10.2) mg/dL Urine Protein (Negative) Urine Blood (Negative) Ur Leukocyte Esterase (Negative) Urine RBC (0-5) /hpf Urine WBC (0-5) /hpf Urine WBC Clumps (None) /hpf Urine Mucus (None) /hpf 12/06/17 Range/Units 05:59 RBC (4.30-5.90) m/uL Hgb (13.0-17.5) gm/dL Hct (39.0-53.0) % RDW (11.5-15.5) % Neutrophils # (1.3-7.7) k/uL Lymphocytes # (1.0-4.8) k/uL APTT (22.0-30.0) sec Sodium (137-145) mmol/L Potassium (3.5-5.1) mmol/L Chloride (98-107) mmol/L BUN (9-20) mg/dL Creatinine (0.66-1.25) mg/dL Glucose (74-99) mg/dL POC Glucose (mg/dL) 142 H (75-99) mg/dL Calcium (8.4-10.2) mg/dL Urine Protein (Negative) Urine Blood (Negative) Ur Leukocyte Esterase (Negative) Urine RBC (0-5) /hpf Urine WBC (0-5) /hpf Urine WBC Clumps (None) /hpf Urine Mucus (None) /hpf Microbiology - Last 24 Hours (Table) 12/03/17 14:55 Gram Stain - Preliminary Buttock Wound Culture - Preliminary Proteus mirabilis Presumptive MRSA 12/01/17 22:20 Urine Culture - Preliminary Urine,Catheterized Proteus mirabilis Group D Enterococcus Assessment and Plan Assessment: Impression: 1 acute hypoxic respiratory failure secondary to gram-negative pneumonia, acute gram-negative sepsis and septic shock, 2 acute gram-negative pneumonia and sepsis with septic shock and bacteremia. This is secondary to Proteus mirabilis. 3 acute septic shock and sepsis secondary to pneumonia and secondary to urinary tract infection secondary to Enterococcus faecalis 4 paroxysmal atrial fibrillation 5 acute on chronic kidney injury secondary to hypotension and septic shock, presented with a picture of acute tubular necrosis. 6 dementia 7 chronic anemia 8 acute on chronic kidney injury 9 Sacral wound culture positive for Proteus mirabilis and presumptive MRSA. Plan: The patient was seen and evaluated by Dr. Hector. Labs and microbiology noted. Sputum culture shows no growth. We'll continue antibiotics per infectious disease. Continue bronchodilators. Aspiration precautions. His overall prognosis remains quite guarded and poor. We'll continue to follow. I, the cosigning physician, performed a history & physical examination of the patient. Lungs sounds with bilateral scattered rhonchi more so on the right lung. Maintaining good O2 saturations in the 90s on room air. I discussed the assessment and plan of care with my nurse practitioner, Laila Lazaro. I attest to the above note as dictated by her.
[2017-12-06 11:54] LABS: Glucose,Whole Blood 144 mg/dL (75-99)
[2017-12-06] MEDS: VANCOMYCIN 1,250 MG in SODIUM CHLORIDE 0.9% 250 ML IVPB SCH (12:34)
--- NOTE | 2017-12-06 13:50 | P.PN ---
Subjective Progress Note Date: 12/06/17 Progress note being dictated for Dr. Arenas Interval history: atient was admitted for septic shock patient is on ventilator patient is presently on spontaneous breathing trial still remains on pressor support. Patient was started on Coumadin by cardiology patient underwent echocardiogram which showed normal ejection fraction patient is awake off sedation when I evaluated the patient patient remains on Zosyn and levofloxacin infectious disease evaluated the patient vancomycin was discontinued as patient has gram-negative bacteremia urine cultures are also positive for gram-negative bacilli. Patient has clear-cut infiltrate the right middle lobe. Unsure whether etiology of his sepsis is either lung or urine are both. Patient probably can be extubated if the he is doing well with spontaneous breathing trial. Creatinine improved to 1.5 from 2.5 remains on IV fluid heart rate is a low 100s. 12/04/2017 Patient's urine is positive for Proteus mirabilis probably the source of infection I suspicion is low that pneumonia source of infection. Patient is being treated with appropriate antibodies Zosyn patient repeat urine cultures also showing enterococcus although less than 100,000 colonies. Patient was extubated and patient is out of ICU. Constitutional: Denied any fatigue denied any fever. Cardio vascular: denied any chest pain, palpitations Gastrointestinal denied any nausea vomiting Pulmonary: Denied any shortness of breath cough Neurologic denied any new focal deficits 12/05/2017 maintained on Zosyn, nebulized bronchodilators .T-max 99.6, WBC 9.7. Chest x-ray reporting improvement with residual patchiness throughout right lung.Urine culture positive for enterococcus faecialis, blood cultures positive for Proteus Mirabilis. Buttock Wound cultures reporting gram-negative bacilli. MBS reporting no penetration, no aspiration. Echo reporting low normal LV function of 50-55%.telemetry sinus rhythm with PVCs, PACs.Potassium 3.0 receiving supplements. Heparin drip discontinued, now anticoagulated with Eliquis Renal function improving. Sodium 152, chloride 119. 12/06/2017T-max 101.9, WBC 9.9. Wound cultures positive for Proteus Mirabilis, presumptive MRSA. Urine culture positive for enterococcus faecialis,Proteus Mirabilis. Blood cultures positive for Proteus mirabilis. Zosyn discontinued , currently maintained on vancomycin and Unasyn as per ID. Yesterday heparin drip discontinued, Eliquis initiated. Developed hematuria, Eliquis placed on hold. Telemetry reporting atrial fibrillation with controlled ventricular rate .CT reporting no acute intracranial abnormalities. Evaluated by speech therapy , MBS pending. Objective - Vital Signs Vital signs: Vital Signs Temp 99.0 F 12/06/17 08:00 Pulse 108 H 12/06/17 11:48 Resp 18 12/06/17 08:00 BP 129/84 12/06/17 08:00 Pulse Ox 95 12/06/17 08:00 Intake & Output 12/05/17 12/06/17 12/06/17 18:59 06:59 18:59 Intake Total 202.981 1737 Output Total 4850 Balance 213.648 -3400 Weight 70.5 kg 70.5 kg Intake: IV 1450 ACETAMINOPHEN IV (For NPO 800 ) 1,000 mg In Empty Bag 1 bag @ 400 mls/hr IVPB Q6HR [facility] Rx#:[id number] Potassium Chloride 10 meq 200 In Water For Injection 1 100ml.bag @ 100 mls/hr IVPB Q1HR [facility] Rx#: [id number] Sodium Chloride 0.9% 1, 200 000 ml @ 40 mls/hr IV . Q24H [facility] Rx#:[id number] Vancomycin 1,250 mg In 250 Sodium Chloride 0.9% 250 ml @ 125 mls/hr IVPB Q16H [facility] Rx#:[id number] Intake, IV Titration 213.648 Amount Heparin Sod,Pork in 0.45% 213.648 NaCl 25,000 unit In 0.45 % NaCl 1 500ml.bag @ 12 UNITS/KG/HR 18.12 mls/hr IV .Q24H [facility] Rx#: [id number] Output: Urine 4850 Other: Voiding Method Indwelling Catheter Indwelling Catheter Indwelling Catheter # Bowel Movements 1 ABP, PAP, CO, CI - Last Documented Arterial Blood Pressure 148/74 - Exam GENERAL: Patient is extubated alert oriented 3 HEENT: Pupils are round and equally reacting to light. EOMI. No scleral icterus. No conjunctival pallor. Normocephalic, atraumatic. No pharyngeal erythema. No thyromegaly. CARDIOVASCULAR: S1 and S2 present. No murmurs, rubs, or gallops. PULMONARY: Chest is clear to auscultation, scattered rhonchi throughout, no wheezing or crackles. ABDOMEN: Soft, nontender, nondistended, normoactive bowel sounds. No palpable organomegaly. MUSCULOSKELETAL: No joint swelling or deformity. EXTREMITIES: No cyanosis, clubbing, or pedal edema. NEUROLOGICAL: No focal deficits SKIN: No rashes. Microbiology 12/05/17 20:30 Urine,Catheterized Urine Culture - Preliminary 12/03/17 14:55 Buttock Gram Stain - Preliminary 12/03/17 14:55 Buttock Wound Culture - Preliminary Proteus mirabilis Presumptive MRSA 12/01/17 22:20 Urine,Catheterized Urine Culture - Preliminary Proteus mirabilis Group D Enterococcus 12/02/17 16:55 Urine,Catheterized Urine Culture - Final Enterococcus faecalis 12/02/17 04:31 Sputum Gram Stain - Final 12/02/17 04:31 Sputum Sputum Culture - Final 12/01/17 22:13 Blood Blood Culture Gram Stain - Final 12/01/17 22:13 Blood Blood Culture - Final Proteus mirabilis 12/01/17 22:13 Blood Blood Culture - Final - Labs CBC & Chem 7: 12/06/17 05:21 12/06/17 05:21 Labs: Abnormal Lab Results - Last 24 Hours (Table) 12/05/17 12/05/17 12/05/17 Range/Units 16:33 17:33 20:30 RBC (4.30-5.90) m/uL Hgb (13.0-17.5) gm/dL Hct (39.0-53.0) % RDW (11.5-15.5) % Neutrophils # (1.3-7.7) k/uL Lymphocytes # (1.0-4.8) k/uL APTT 36.8 H (22.0-30.0) sec Sodium (137-145) mmol/L Potassium (3.5-5.1) mmol/L Chloride (98-107) mmol/L BUN (9-20) mg/dL Creatinine (0.66-1.25) mg/dL Glucose (74-99) mg/dL POC Glucose (mg/dL) 132 H (75-99) mg/dL Calcium (8.4-10.2) mg/dL Urine Protein 1+ H (Negative) Urine Blood Large H (Negative) Ur Leukocyte Esterase Large H (Negative) Urine RBC >182 H (0-5) /hpf Urine WBC 141 H (0-5) /hpf Urine WBC Clumps Moderate H (None) /hpf Urine Mucus Rare H (None) /hpf 12/05/17 12/05/17 12/06/17 Range/Units 21:00 21:16 03:54 RBC (4.30-5.90) m/uL Hgb (13.0-17.5) gm/dL Hct (39.0-53.0) % RDW (11.5-15.5) % Neutrophils # (1.3-7.7) k/uL Lymphocytes # (1.0-4.8) k/uL APTT (22.0-30.0) sec Sodium 152 H (137-145) mmol/L Potassium (3.5-5.1) mmol/L Chloride 120 H* (98-107) mmol/L BUN 48 H (9-20) mg/dL Creatinine 1.40 H (0.66-1.25) mg/dL Glucose 140 H (74-99) mg/dL POC Glucose (mg/dL) 148 H 152 H (75-99) mg/dL Calcium 8.2 L (8.4-10.2) mg/dL Urine Protein (Negative) Urine Blood (Negative) Ur Leukocyte Esterase (Negative) Urine RBC (0-5) /hpf Urine WBC (0-5) /hpf Urine WBC Clumps (None) /hpf Urine Mucus (None) /hpf 12/06/17 12/06/17 12/06/17 Range/Units 05:21 05:21 05:59 RBC 3.78 L (4.30-5.90) m/uL Hgb 10.9 L (13.0-17.5) gm/dL Hct 34.7 L (39.0-53.0) % RDW 16.1 H (11.5-15.5) % Neutrophils # 8.5 H (1.3-7.7) k/uL Lymphocytes # 0.9 L (1.0-4.8) k/uL APTT (22.0-30.0) sec Sodium 152 H (137-145) mmol/L Potassium 3.3 L (3.5-5.1) mmol/L Chloride 117 H (98-107) mmol/L BUN 43 H (9-20) mg/dL Creatinine 1.40 H (0.66-1.25) mg/dL Glucose 148 H (74-99) mg/dL POC Glucose (mg/dL) 142 H (75-99) mg/dL Calcium (8.4-10.2) mg/dL Urine Protein (Negative) Urine Blood (Negative) Ur Leukocyte Esterase (Negative) Urine RBC (0-5) /hpf Urine WBC (0-5) /hpf Urine WBC Clumps (None) /hpf Urine Mucus (None) /hpf Microbiology - Last 24 Hours (Table) 12/05/17 20:30 Urine Culture - Preliminary Urine,Catheterized 12/03/17 14:55 Gram Stain - Preliminary Buttock Wound Culture - Preliminary Proteus mirabilis Presumptive MRSA 12/01/17 22:20 Urine Culture - Preliminary Urine,Catheterized Proteus mirabilis Group D Enterococcus Assessment and Plan Assessment: -Septic shock possibly secondary to right lower lobe aspiration pneumonia , Proteus Mirabilis bacteremia secondary to urinary tract infection with enterococcus faecalis. -Sacral wound with Proteus Mirabilis and presumptive MRSA. -Acute hypoxic respiratory failure secondary to sepsis , pneumonia as mentioned above -Acute renal failure secondary to acute tubular necrosis and improved with IV fluids patient had bit of pulmonary edema -Paroximal Atrial fibrillation: Precipitated by sepsis and new onset, echocardiogram showed normal ejection fraction -Chronic Bhatt catheter -Benign prostatic hypertrophy -Deconditioning with the possibility of dementia baseline Plan: Continue current medication regime , nebulized bronchodilators, monitoring and symptomatic treatment. Speech therapy evaluation in progress, MBS pending.repeat blood cultures, repeat UA pending. Antibiotics adjusted to Unasyn, vancomycin as per infectious disease. As mentioned, Eliquis had been placed on hold last night secondary to hematuria -further recommendations regarding anticoagulation as per cardiology. Strict aspiration precautions. Prognosis guarded given multiple complex medical issues. The impression and plan of care has been dictated as directed. : I performed a history and examination of this patient, discussed the same with the dictator. I agree with the dictator's note ,documented as a scribe. Any additional findings or plans will be noted.
--- NOTE | 2017-12-06 14:58 | FL ---
EXAMINATION TYPE: FL barium swallow w video DATE OF EXAM: 12/06/2017 MODIFIED SWALLOW / DEGLUTITION STUDY CLINICAL HISTORY: Dysphagia. TECHNIQUE: Deglutition study is performed utilizing thin liquid barium, honey and nectar thick liqui d barium, barium thick applesauce, and barium coated cracker. 1.44 minutes of fluoroscopy time was ut ilized with 0 images saved as this was video recorded. COMPARISON: 12/04/2017 modified barium swallow. FINDINGS: Delayed oral phase is noted with all ingested substances, specifically most notably with th e barium coated cracker. There is silent penetration with the honey thick consistency and penetration with the nectar thick consistency. Vallecular retention of contrast is seen with all consistencies a dministered. Additionally silent aspiration was identified with the honey thick consistency and deep penetration with the nectar thick consistency. Remaining consistencies did not demonstrate aspiration or penetration. IMPRESSION: Silent aspiration and deep vallecular penetration as noted above with abnormal delayed or al phase and vallecular retention. Please refer to speech therapist notes for further details if nec essary.
[2017-12-06 16:24] LABS: Glucose,Whole Blood 161 mg/dL (75-99)
--- NOTE | 2017-12-06 17:19 | P.CNNES ---
History of Present Illness Consult date: 12/06/17 History of Present Illness: The patient is a 72-year-old man who was recently hospitalized and treated for infection and was readmitted with lethargy and found to have right lower lobe pneumonia and admitted with septic shock. She was admitted on December 01. Neurology is requested to see the patient today to rule out CVA. The patient apparently has underlying dementia. He is sleeping but easily arousable. He is not able to speak at currently or follow commands. He had a CT of the brain which showed atrophy and small vessel disease. Patient has multiple medical issues including presumptive MRSA, atrial fibrillation, renal failure, and prostate disorder. History is obtained from the patient's chart. Review of Systems ROS unobtainable: due to mental status Past Medical History Past Medical History: Dementia, Prostate Disorder, Renal Disease Additional Past Medical History / Comment(s): [facility] with nonoliguric acute renal failure/acute UTI/hematuria/elevated phosphorus/moderate cognitive impairment. Other HX: Pt had not followed with a PCP for many years, Indwelling feng cath, APACHE bilaterally, R buttock ulcer stage III, unsteady when first up, shuffling gait, BPH, contact dermatitis. History of Any Multi-Drug Resistant Organisms: MRSA Date of last positivie culture/infection: 12/03/17 MDRO Source:: BUTTOCK Past Surgical History: Appendectomy, Tonsillectomy Additional Past Surgical History / Comment(s): Skin lesion removed from face. Past Anesthesia/Blood Transfusion Reactions: No Reported Reaction Smoking Status: Former smoker - Past Family History Father Family Medical History: Musculoskeletal Disorder, Neurologic Disorder Additional Family Medical History / Comment(s): Father had parkinson's. Mother Family Medical History: Cancer Additional Family Medical History / Comment(s): Unknown type of cancer. Medications and Allergies Home Medications Medication Instructions Recorded Confirmed Type Tamsulosin HCl [Flomax] 0.8 mg PO HS 10/31/17 12/02/17 History Acetaminophen Tab [Tylenol] 650 mg PO Q6HR PRN tab 11/04/17 12/02/17 Rx hydrALAZINE HCL [Apresoline] 25 mg PO BID tab 11/04/17 12/02/17 Rx Amino Acids/Protein Hydrolys 30 ml PO BID 07/16/18 07/16/18 History [Pro-Stat Supplement] Multivitamins, Thera [Multivitamin 1 tab PO DAILY 12/02/17 12/02/17 History (formulary)] Allergies Allergy/AdvReac Type Severity Reaction Status Date / Time No Known Allergies Allergy Verified 12/02/17 07:07 Physical Examination - Vital Signs Vital Signs: Vital Signs Temp Pulse Pulse Resp BP Pulse Ox 12/06/17 15:58 100 12/06/17 15:45 96 12/06/17 12:00 99.0 F 98 18 118/86 93 L 12/06/17 11:58 104 H 12/06/17 11:48 108 H 12/06/17 08:43 92 12/06/17 08:34 92 12/06/17 08:00 99.0 F 102 H 18 129/84 95 12/06/17 05:51 98.3 F 12/06/17 05:20 98.8 F 12/06/17 04:00 101.6 F H 92 16 137/60 93 L 12/05/17 22:27 98.7 F 94 18 168/88 95 12/05/17 21:18 99.9 F H 12/05/17 20:31 99.6 F 12/05/17 20:00 101.9 F H 96 16 162/91 94 L 12/05/17 18:36 162/82 Intake and Output 12/06/17 12/06/17 12/06/17 06:59 14:59 22:59 Intake Total 440 Output Total 2850 1550 Balance -2410 -1550 Intake: IV 440 ACETAMINOPHEN IV (For NPO 400 ) 1,000 mg In Empty Bag 1 bag @ 400 mls/hr IVPB Q6HR MIKE Rx#:[id number] Sodium Chloride 0.9% 1, 40 000 ml @ 40 mls/hr IV . Q24H MIKE Rx#:[id number] Output: Urine 2850 1550 Other: Voiding Method Indwelling Catheter Indwelling Catheter Weight 70.5 kg 70.5 kg - Respiratory Respiratory: lungs clear - Cardiovascular Cardiovascular: regular rate - Neurologic Neurologic exam: Mental status the patient is laying in bed able to open eyes to command. He is not following any commands or responding verbally. Cranial nerve examination pupils were 2 mm and equal. Is no obvious facial asymmetry. Next Motor examination the patient was uncooperative to motor testing. He did seem to move both arms equally in bed. Results - Laboratory Findings CBC and BMP: 12/06/17 05:21 12/06/17 05:21 Abnormal Lab Findings: Abnormal Labs 12/01/17 12/01/17 12/01/17 22:13 22:13 22:13 WBC 13.8 H RBC 3.99 L Hgb 11.9 L Hct 36.1 L RDW 15.9 H Neutrophils # Neutrophils # (Manual) 12.50 H Lymphocytes # Lymphocytes # (Manual) 0.83 L Metamyelocytes # (Man) INR APTT ABG pH ABG pCO2 ABG pO2 ABG Total CO2 ABG O2 Saturation Sodium Potassium Chloride BUN 97 H* Creatinine 2.60 H Glucose 243 H POC Glucose (mg/dL) Hemoglobin A1c Plasma Lactic Acid Redd 3.2 H* Calcium Phosphorus AST Total Creatine Kinase CK-MB (CK-2) Troponin I Total Protein 5.3 L Albumin 2.8 L Urine pH Urine Protein Urine Blood Ur Leukocyte Esterase Urine RBC Urine WBC Urine WBC Clumps Urine Bacteria Urine Mucus 12/01/17 12/01/17 12/01/17 22:20 23:18 23:18 WBC RBC Hgb Hct RDW Neutrophils # Neutrophils # (Manual) Lymphocytes # Lymphocytes # (Manual) Metamyelocytes # (Man) INR 1.3 H APTT ABG pH ABG pCO2 ABG pO2 ABG Total CO2 ABG O2 Saturation Sodium Potassium Chloride BUN Creatinine Glucose POC Glucose (mg/dL) Hemoglobin A1c Plasma Lactic Acid Redd Calcium Phosphorus AST Total Creatine Kinase 457 H CK-MB (CK-2) 9.5 H* Troponin I 0.072 H* Total Protein Albumin Urine pH 8.5 H Urine Protein 3+ H Urine Blood Moderate H Ur Leukocyte Esterase Large H Urine RBC 123 H Urine WBC >182 H Urine WBC Clumps Many H Urine Bacteria Occasional H Urine Mucus Occasional H 12/02/17 12/02/17 12/02/17 03:40 04:45 10:55 WBC RBC Hgb Hct RDW Neutrophils # Neutrophils # (Manual) Lymphocytes # Lymphocytes # (Manual) Metamyelocytes # (Man) INR APTT ABG pH ABG pCO2 ABG pO2 82 L ABG Total CO2 26 H ABG O2 Saturation Sodium Potassium Chloride BUN Creatinine Glucose POC Glucose (mg/dL) Hemoglobin A1c Plasma Lactic Acid Redd 3.8 H* 2.3 H* Calcium Phosphorus AST Total Creatine Kinase CK-MB (CK-2) Troponin I Total Protein Albumin Urine pH Urine Protein Urine Blood Ur Leukocyte Esterase Urine RBC Urine WBC Urine WBC Clumps Urine Bacteria Urine Mucus 12/02/17 12/02/17 12/02/17 14:44 14:58 15:51 WBC RBC Hgb Hct RDW Neutrophils # Neutrophils # (Manual) Lymphocytes # Lymphocytes # (Manual) Metamyelocytes # (Man) INR APTT ABG pH ABG pCO2 ABG pO2 66 L ABG Total CO2 ABG O2 Saturation 93.8 L Sodium Potassium Chloride BUN Creatinine Glucose POC Glucose (mg/dL) 152 H Hemoglobin A1c Plasma Lactic Acid Redd 3.0 H* Calcium Phosphorus AST Total Creatine Kinase CK-MB (CK-2) Troponin I Total Protein Albumin Urine pH Urine Protein Urine Blood Ur Leukocyte Esterase Urine RBC Urine WBC Urine WBC Clumps Urine Bacteria Urine Mucus 12/02/17 12/02/17 12/02/17 18:15 18:15 18:15 WBC 12.5 H RBC 3.14 L Hgb 9.2 L D Hct 28.7 L RDW 15.8 H Neutrophils # Neutrophils # (Manual) 11.70 H Lymphocytes # Lymphocytes # (Manual) 0.38 L Metamyelocytes # (Man) 0.25 H INR APTT ABG pH ABG pCO2 ABG pO2 ABG Total CO2 ABG O2 Saturation Sodium Potassium Chloride 113 H BUN 80 H* Creatinine 2.00 H Glucose 239 H POC Glucose (mg/dL) Hemoglobin A1c 6.3 H Plasma Lactic Acid Redd Calcium 7.2 L Phosphorus AST Total Creatine Kinase CK-MB (CK-2) Troponin I Total Protein Albumin Urine pH Urine Protein Urine Blood Ur Leukocyte Esterase Urine RBC Urine WBC Urine WBC Clumps Urine Bacteria Urine Mucus 12/02/17 12/03/17 12/03/17 20:17 00:24 04:00 WBC 15.9 H RBC 3.23 L Hgb 9.3 L Hct 29.8 L RDW 15.7 H Neutrophils # Neutrophils # (Manual) 15.20 H Lymphocytes # Lymphocytes # (Manual) 0.32 L Metamyelocytes # (Man) INR APTT ABG pH ABG pCO2 ABG pO2 ABG Total CO2 ABG O2 Saturation Sodium Potassium Chloride BUN Creatinine Glucose POC Glucose (mg/dL) 214 H 253 H Hemoglobin A1c Plasma Lactic Acid Redd Calcium Phosphorus AST Total Creatine Kinase CK-MB (CK-2) Troponin I Total Protein Albumin Urine pH Urine Protein Urine Blood Ur Leukocyte Esterase Urine RBC Urine WBC Urine WBC Clumps Urine Bacteria Urine Mucus 12/03/17 12/03/17 12/03/17 04:00 05:43 07:12 WBC RBC Hgb Hct RDW Neutrophils # Neutrophils # (Manual) Lymphocytes # Lymphocytes # (Manual) Metamyelocytes # (Man) INR APTT ABG pH ABG pCO2 ABG pO2 116 H ABG Total CO2 25 H ABG O2 Saturation 99.1 H Sodium Potassium Chloride 114 H BUN 68 H Creatinine 1.90 H Glucose 192 H POC Glucose (mg/dL) 171 H Hemoglobin A1c Plasma Lactic Acid Redd Calcium 7.6 L Phosphorus AST 63 H Total Creatine Kinase CK-MB (CK-2) Troponin I Total Protein 4.3 L Albumin 2.1 L Urine pH Urine Protein Urine Blood Ur Leukocyte Esterase Urine RBC Urine WBC Urine WBC Clumps Urine Bacteria Urine Mucus 12/03/17 12/03/17 12/03/17 11:39 13:42 17:53 WBC RBC Hgb Hct RDW Neutrophils # Neutrophils # (Manual) Lymphocytes # Lymphocytes # (Manual) Metamyelocytes # (Man) INR APTT ABG pH 7.46 H ABG pCO2 34 L ABG pO2 109 H ABG Total CO2 25 H ABG O2 Saturation 99.2 H Sodium Potassium Chloride BUN Creatinine Glucose POC Glucose (mg/dL) 131 H 151 H Hemoglobin A1c Plasma Lactic Acid Redd Calcium Phosphorus AST Total Creatine Kinase CK-MB (CK-2) Troponin I Total Protein Albumin Urine pH Urine Protein Urine Blood Ur Leukocyte Esterase Urine RBC Urine WBC Urine WBC Clumps Urine Bacteria Urine Mucus 12/03/17 12/04/17 12/04/17 20:55 00:08 03:30 WBC 12.7 H RBC 3.16 L Hgb 9.2 L Hct 28.6 L RDW 15.8 H Neutrophils # 11.8 H Neutrophils # (Manual) Lymphocytes # 0.6 L Lymphocytes # (Manual) Metamyelocytes # (Man) INR APTT ABG pH ABG pCO2 ABG pO2 ABG Total CO2 ABG O2 Saturation Sodium 147 H Potassium 3.1 L Chloride 117 H BUN 50 H Creatinine 1.40 H Glucose 148 H POC Glucose (mg/dL) 139 H Hemoglobin A1c Plasma Lactic Acid Redd Calcium 7.7 L Phosphorus AST Total Creatine Kinase CK-MB (CK-2) Troponin I Total Protein Albumin Urine pH Urine Protein Urine Blood Ur Leukocyte Esterase Urine RBC Urine WBC Urine WBC Clumps Urine Bacteria Urine Mucus 12/04/17 12/04/17 12/04/17 03:30 06:19 11:56 WBC RBC Hgb Hct RDW Neutrophils # Neutrophils # (Manual) Lymphocytes # Lymphocytes # (Manual) Metamyelocytes # (Man) INR APTT ABG pH ABG pCO2 ABG pO2 ABG Total CO2 ABG O2 Saturation Sodium 149 H Potassium 3.4 L Chloride 118 H BUN 46 H Creatinine 1.60 H Glucose 113 H POC Glucose (mg/dL) 120 H 137 H Hemoglobin A1c Plasma Lactic Acid Redd Calcium 8.0 L Phosphorus 2.0 L AST Total Creatine Kinase CK-MB (CK-2) Troponin I Total Protein Albumin Urine pH Urine Protein Urine Blood Ur Leukocyte Esterase Urine RBC Urine WBC Urine WBC Clumps Urine Bacteria Urine Mucus 12/04/17 12/04/17 12/04/17 12:43 16:26 21:31 WBC RBC Hgb Hct RDW Neutrophils # Neutrophils # (Manual) Lymphocytes # Lymphocytes # (Manual) Metamyelocytes # (Man) INR APTT ABG pH ABG pCO2 ABG pO2 ABG Total CO2 ABG O2 Saturation Sodium Potassium Chloride BUN Creatinine Glucose POC Glucose (mg/dL) 133 H 161 H 139 H Hemoglobin A1c Plasma Lactic Acid Redd Calcium Phosphorus AST Total Creatine Kinase CK-MB (CK-2) Troponin I Total Protein Albumin Urine pH Urine Protein Urine Blood Ur Leukocyte Esterase Urine RBC Urine WBC Urine WBC Clumps Urine Bacteria Urine Mucus 12/05/17 12/05/17 12/05/17 06:20 08:14 08:14 WBC RBC 3.61 L Hgb 10.4 L Hct 33.0 L RDW 16.1 H Neutrophils # 8.6 H Neutrophils # (Manual) Lymphocytes # 0.7 L Lymphocytes # (Manual) Metamyelocytes # (Man) INR APTT ABG pH ABG pCO2 ABG pO2 ABG Total CO2 ABG O2 Saturation Sodium 152 H Potassium 3.0 L* Chloride 119 H BUN 50 H Creatinine 1.38 H Glucose 149 H POC Glucose (mg/dL) 174 H Hemoglobin A1c Plasma Lactic Acid Redd Calcium 8.2 L Phosphorus AST Total Creatine Kinase CK-MB (CK-2) Troponin I Total Protein Albumin Urine pH Urine Protein Urine Blood Ur Leukocyte Esterase Urine RBC Urine WBC Urine WBC Clumps Urine Bacteria Urine Mucus 0712/05/17 12/05/17 11:33 16:33 17:33 WBC RBC Hgb Hct RDW Neutrophils # Neutrophils # (Manual) Lymphocytes # Lymphocytes # (Manual) Metamyelocytes # (Man) INR APTT 36.8 H ABG pH ABG pCO2 ABG pO2 ABG Total CO2 ABG O2 Saturation Sodium Potassium Chloride BUN Creatinine Glucose POC Glucose (mg/dL) 148 H 132 H Hemoglobin A1c Plasma Lactic Acid Redd Calcium Phosphorus AST Total Creatine Kinase CK-MB (CK-2) Troponin I Total Protein Albumin Urine pH Urine Protein Urine Blood Ur Leukocyte Esterase Urine RBC Urine WBC Urine WBC Clumps Urine Bacteria Urine Mucus 12/05/17 12/05/17 12/05/17 20:30 21:00 21:16 WBC RBC Hgb Hct RDW Neutrophils # Neutrophils # (Manual) Lymphocytes # Lymphocytes # (Manual) Metamyelocytes # (Man) INR APTT ABG pH ABG pCO2 ABG pO2 ABG Total CO2 ABG O2 Saturation Sodium 152 H Potassium Chloride 120 H* BUN 48 H Creatinine 1.40 H Glucose 140 H POC Glucose (mg/dL) 148 H Hemoglobin A1c Plasma Lactic Acid Redd Calcium 8.2 L Phosphorus AST Total Creatine Kinase CK-MB (CK-2) Troponin I Total Protein Albumin Urine pH Urine Protein 1+ H Urine Blood Large H Ur Leukocyte Esterase Large H Urine RBC >182 H Urine WBC 141 H Urine WBC Clumps Moderate H Urine Bacteria Urine Mucus Rare H 12/06/17 12/06/17 12/06/17 03:54 05:21 05:21 WBC RBC 3.78 L Hgb 10.9 L Hct 34.7 L RDW 16.1 H Neutrophils # 8.5 H Neutrophils # (Manual) Lymphocytes # 0.9 L Lymphocytes # (Manual) Metamyelocytes # (Man) INR APTT ABG pH ABG pCO2 ABG pO2 ABG Total CO2 ABG O2 Saturation Sodium 152 H Potassium 3.3 L Chloride 117 H BUN 43 H Creatinine 1.40 H Glucose 148 H POC Glucose (mg/dL) 152 H Hemoglobin A1c Plasma Lactic Acid Redd Calcium Phosphorus AST Total Creatine Kinase CK-MB (CK-2) Troponin I Total Protein Albumin Urine pH Urine Protein Urine Blood Ur Leukocyte Esterase Urine RBC Urine WBC Urine WBC Clumps Urine Bacteria Urine Mucus 12/06/17 12/06/17 12/06/17 05:59 11:37 16:21 WBC RBC Hgb Hct RDW Neutrophils # Neutrophils # (Manual) Lymphocytes # Lymphocytes # (Manual) Metamyelocytes # (Man) INR APTT ABG pH ABG pCO2 ABG pO2 ABG Total CO2 ABG O2 Saturation Sodium Potassium Chloride BUN Creatinine Glucose POC Glucose (mg/dL) 142 H 144 H 161 H Hemoglobin A1c Plasma Lactic Acid Redd Calcium Phosphorus AST Total Creatine Kinase CK-MB (CK-2) Troponin I Total Protein Albumin Urine pH Urine Protein Urine Blood Ur Leukocyte Esterase Urine RBC Urine WBC Urine WBC Clumps Urine Bacteria Urine Mucus Assessment and Plan (1) Altered mental status Current Visit: No Status: Acute SNOMED Code(s): 427121155 (2) Sepsis Current Visit: Yes Status: Acute SNOMED Code(s): 62886278 (3) Renal insufficiency Current Visit: No Status: Acute SNOMED Code(s): 189447780 (4) Pneumonia Current Visit: Yes Status: Acute SNOMED Code(s): 101529639 Plan: The patient is a 72-year-old man who was recently readmitted to the hospital from [facility] [place] with lethargy altered mental status and sepsis. The patient is unable to verbalize. He does have baseline dementia according to the record. The patient has multiple medical issues currently which may be contributing to his altered mental status including sepsis. He has had a CAT scan of the brain which showed atrophy and small vessel disease. Will check EEG to rule out underlying seizures.
--- NOTE | 2017-12-06 17:56 | PN ---
PROGRESS NOTE DATE OF SERVICE: 12/06/2017. REASON FOR FOLLOWUP: 1. Proteus mirabilis UTI and bacteremia. 2. Infected sacral wound. INTERVAL HISTORY: The patient did spike a fever last evening; however, the patient is afebrile since then. He has been breathing comfortably and on room air. No nausea or vomiting has been noticed or any choking on the food by the nursing staff or any diarrhea. EXAMINATION: Blood pressure 118/86 with a pulse of 90, temperature 99. He is 93% on room air. General description is an elderly male lying in bed in no distress. RESPIRATORY SYSTEM: Unlabored breathing. Decreased breath sounds at the bases. No wheeze. HEART: S1, S2. Regular rate and rhythm. ABDOMEN: Soft, no tenderness. LABS: Hemoglobin 10.8, white count 9.9. BUN of 43, creatinine 1.40. Repeat urine culture was ordered , which is still positive with moderate leukocyte esterase. DIAGNOSTIC IMPRESSION AND PLAN: Patient with Proteus mirabilis urinary tract infection with a secondary bacteremia, also with a wound on the sacral area, stage III, now with a culture positive for methicillin-resistant Staphylococcus aureus. Patient is currently on vancomycin, Unasyn. Will continue while waiting for the repeat cultures to finalize. Local wound care to continue with an Aquacel Silver dressing to the sacral wound. Keep the area off the pressure. MMODL / IJN: [id number] /
[2017-12-06 21:00] LABS: Glucose,Whole Blood 172 mg/dL (75-99)
[2017-12-07] MEDS: VANCOMYCIN 1,250 MG in SODIUM CHLORIDE 0.9% 250 ML IVPB SCH ×2 (03:43→20:56)
[2017-12-07 06:12] LABS: Glucose,Whole Blood 154 mg/dL (75-99)
[2017-12-07 06:28] LABS: INR 1.2 (<1.2); Prothrombin Time 11.7 sec (9.0-12.0)
[2017-12-07 06:38] LABS: Calcium 7.9 mg/dL (8.4-10.2); Potassium 3.4 mmol/L (3.5-5.1)
[2017-12-07] MEDS: INSULIN ASPART 100 UNIT/ML 1 ML 10 ML VIAL SQ SCH ×4 (06:40→22:21)
[2017-12-07] MEDS: AMPICILLIN-SULBACTAM 3 GM in SODIUM CHLORIDE 0.9% 100 ML IVPB SCH ×3 (06:51→17:06)
[2017-12-07] MEDS: APIXABAN 5 MG TAB PO SCH ×2 (08:21→19:50)
[2017-12-07] MEDS: hydrALAZINE HCL 25 MG TAB PO SCH ×2 (08:21→19:50)
[2017-12-07] MEDS: ASPIRIN 81 MG PO SCH (08:21)
[2017-12-07] MEDS: PANTOPRAZOLE 40 MG/10 ML VIAL IVP SCH (08:28)
[2017-12-07] MEDS: IPRATROPIUM-ALBUTEROL 3 ML NEB INHALATION SCH ×4 (09:00→18:52)
[2017-12-07] MEDS: POTASSIUM CHLORIDE 10 MEQ in WATER FOR INJECTION 1 100ML.BAG IVPB SCH ×4 (10:31→17:08)
[2017-12-07] MEDS: DEXTROSE 5% IN WATER 1,000 ML IV SCH (10:31)
[2017-12-07 11:26] LABS: Glucose,Whole Blood 167 mg/dL (75-99)
--- NOTE | 2017-12-07 12:15 | P.PN ---
Subjective Progress Note Date: 12/07/17 Principal diagnosis: Acute respiratory failure, acute sepsis and septic shock, right sided pneumonia. Mr. Hester is a 72-year-old white male patient from [facility], was brought to the emergency department on 12/01/2017 at 2219 by ambulance, for concerns of abnormal labs, namely abnormal renal profile and white blood cell count, and altered mentation. Patient was increasingly lethargic at the halfway. Patient does have dementia at his baseline. He was recently hospitalized from 10/31/2017 through 11/04/2017 for Enterococcus faecalis urinary tract infection, acute kidney injury. Patient had significant clinical improvement, received IV fluid hydration, renal profile had improved, creatinine was at 1.74 at discharge. In the emergency department patient was increasingly more lethargic, became hypoxemic, with pulse ox of 84%, febrile, with a temp of 10 1F, he went into atrial fibrillation with rapid ventricular response. He was then intubated and placed on mechanical ventilator. Initial chest x-ray showed airspace opacities within the lung bases, low lung volumes and atelectasis, pneumonia could not be excluded. Follow-up chest x-rays post intubation showed ET tube at 4.5 cm above the elizabeth, which showed patchy pneumonic consolidation in the right lung. This morning chest x-ray shows increasing right lower lobe consolidation. Labs showed mild leukocytosis WBC of 13.8, hemoglobin 11.9, INR 1.3, B1 of 97, creatinine is 2.6, lites were unremarkable, plasma lactic acid 3.2, CK-MB is 9.5, troponin 0.072, proBNP 2530 , urinalysis showed large amount of leukocyte esterase, pyuria, and red blood cells. Urine drug screen was negative. Patient has received a total of 2.5 L of 0.9 normal saline and fluid boluses, he remains on mechanical ventilator, sedated, currently on Diprivan and at 15 mics per kilo per minute, Cardizem drip is infusing at a rate of 5 mg per hour, 0.9 at 20 ML per hour. Current vent settings assist control mode with a rate of 16, tidal volume 500, FiO2 of 100% and PEEP of 5. Blood gas this morning's pO2 of 82, pCO2 45, pH of 7.35 is done on FiO2 100%. Blood cultures, sputum and urine cultures were ordered, and are pending at this time. Patient has a chronic indwelling catheter, history of urinary retention, benign prostatic hypertrophy, and previous history of sacral ulcer. Urine output is still marginal, has been a total of 500 mL of cloudy urine since patient's arrival to the emergency department last night. Blood pressures are marginal, currently at 19/53, with a mean of 68, patient is tachypneic, breathing at 26 breaths per minute, he needs to be adequately sedated. He received a dose of Levaquin and Zosyn, we're consulted in regards to right lower lobe pneumonia, critical care management Patient was reevaluated today on 12/03/2017, remains on mechanical ventilation, ventilator settings are tidal volume of 500, assist control rate of 16 FiO2 of 40%, and PEEP of 5. ABG showed a pO2 of 116 pCO2 of 38 and pH of 7.40. Hence his FiO2 was decreased from 50% to 40%. Patient remains on norepinephrine at 10 mcg/m, he has excellent urine output, and as we wake him up today, I plan to taper and possibly discontinue norepinephrine. Patient has good urine output, renal functioning is significantly improving, and creatinine today is 1.90, definitely improved since yesterday. Blood cultures are positive for gram- negative bacilli, hence we have a Grady organism causing his sepsis and septic shock, and a chest x-ray is showing some improvement in his right sided pneumonia, therefore, I decided to cancel bronchoscopy today. This is based on the fact that we have a specific organism to treat, and based on the fact that his chest x-ray is improving, and his hemodynamic status is also improving. Obviously patient is responding well to treatment over the last 24 hours. WBC count is 15.9 hemoglobin is 9.3 basic metabolic profile is normal. Sputum cultures are pending but blood cultures are negative for gram-negative bacilli. Patient remains on Zosyn and Levaquin. And his vancomycin will be discontinued. Patient remains on propofol, and I plan to hold propofol, and hopefully give the patient a spontaneous breathing trial later on today. Nutrition-mcqueen, the patient will continue on enteral feeding as per upper cutter out on the case. Patient was reevaluated today on 12/04/2017, he was extubated yesterday, tolerated the extubation relatively well. At night, the patient developed some shortness of breath, agitation, and he sounded wet according to the nurse taking care of the patient. Patient was given Lasix 40 mg IV push, placed on BiPAP, but he kept removing it. Did well overnight, and today he is on nasal cannula, not requiring any oxygen and not requiring BiPAP. Patient has dementia and he is is not verbal. He seems to be comfortable and not in any form of distress. His cultures however came back, and his urine is positive for group D enterococcus, his blood culture is positive for Proteus mirabilis and the most likely source of that is the urine unless proven otherwise. Final urine culture is pending. His sacral decub culture is still pending. Hence infectious disease remediation bioanalytics consultant will be notified about the cultures, and antibiotics would need to be changed accordingly. Patient is hemodynamically stable, off norepinephrine, he was on 2 g of norepinephrine earlier this morning. Hence this was discontinued, and we will likely transfer the patient out of the ICU today. Chest x-ray continues to show extensive airspace disease involving the right lung. There is also evidence of left basilar atelectasis and possibly infiltrate in the left lower lobe. Swallow evaluation was performed, no penetration or aspiration noted. Labs were reviewed his sodium seems to be coming up, and is 149 today, hence the patient will be given more free water. WBC count is down to 12.7 hemoglobin is 9.2. Creatinine is 1.6. Patient looks comfortable, in no distress, and he is off oxygen. O2 saturation is in the low 90s. Patient was reevaluated today on 12/07/2017, remains on selective/monitor bed, patient is being treated for sepsis, pneumonia, and urinary tract infection, patient had septic shock upon presentation. He was eventually extubated, and he is now being seen for underlying dementia and possible CVA by neurology. Patient is aphasic, and has been aphasic all along since he presented to the hospital. CT of the brain showed atrophy and small vessel disease, and I strongly believe his mental status change is probably poor baseline to begin with, underlying dementia, and he does have metabolic encephalopathy especially with his sodium climbing up today up to 156, has been gradually climbing up, today I have changes IV fluid to D5W, may consider a nasogastric tube and free water via nasogastric tube. Pulmonary-mcqueen the patient is on room air, in no distress, we are still treating him for right sided pneumonia. His cultures from the blood showed Proteus mirabilis. His urine cultures came back positive for Enterococcus faecalis and positive for Proteus mirabilis his wound culture is also positive for MRSA and Proteus mirabilis. At any rate the dose are being addressed by infectious disease on the case, and I'm not addressing the antibiotics at this point. Objective - Vital Signs Vital signs: Vital Signs Temp 97.3 F L 12/07/17 08:00 Pulse 86 12/07/17 12:02 Resp 18 12/07/17 08:00 BP 135/75 12/07/17 08:00 Pulse Ox 92 L 12/07/17 08:00 Intake & Output 12/06/17 12/07/17 12/07/17 18:59 06:59 18:59 Intake Total 90 Output Total 1550 700 Balance -1550 -610 Weight 70.5 kg 73 kg Intake: IV 90 Sodium Chloride 0.9% 1, 90 000 ml @ 40 mls/hr IV . Q24H [facility] Rx#:[id number] Oral 0 Output: Urine 1550 700 Uretheral (Bhatt) 700 Other: Voiding Method Indwelling Catheter Indwelling Catheter Indwelling Catheter ABP, PAP, CO, CI - Last Documented Arterial Blood Pressure 148/74 - Exam Physical Exam: Revealed a 72-year-old white male sedated, on room air, in no distress.. Aphasic, confused. Head: Atraumatic, normocephalic. Patient is aphasic, nonverbal. . HEENT:[Neck is supple.] [No neck masses.] [No thyromegaly.] [No JVD.] PERRLA, EOMI, no icterus. Moist mucous membranes noted. Chest: [Crackles and rhonchi noted at the right base, left side is relatively clear. Symmetrical chest expansion was noted. No chest wall tenderness.] Cardiac Exam: [Normal S1 and S2, no S3 gallop, no murmur.] Abdomen: [Soft, nontender, no megaly, no rebound, no guarding, normal bowel sounds.] Extremities: [No clubbing, no edema, no cyanosis.] Neurological Exam: Patient is confused, nonverbal, aphasic, moves all extremities, does not follow instructions and does not respond appropriately to verbal stimuli. Skin: No rashes. There is however a large decubitus ulcer noted on admission. - Labs CBC & Chem 7: 12/06/17 05:21 12/07/17 05:43 Labs: Abnormal Lab Results - Last 24 Hours (Table) 12/06/17 12/06/17 12/07/17 Range/Units 16:21 20:54 05:43 INR (<1.2) Sodium 156 H (137-145) mmol/L Potassium 3.4 L (3.5-5.1) mmol/L Chloride 122 H* (98-107) mmol/L BUN 46 H (9-20) mg/dL Creatinine 1.42 H (0.66-1.25) mg/dL Glucose 156 H (74-99) mg/dL POC Glucose (mg/dL) 161 H 172 H (75-99) mg/dL Calcium 7.9 L (8.4-10.2) mg/dL 12/07/17 12/07/17 12/07/17 Range/Units 05:43 06:10 11:22 INR 1.2 H (<1.2) Sodium (137-145) mmol/L Potassium (3.5-5.1) mmol/L Chloride (98-107) mmol/L BUN (9-20) mg/dL Creatinine (0.66-1.25) mg/dL Glucose (74-99) mg/dL POC Glucose (mg/dL) 154 H 167 H (75-99) mg/dL Calcium (8.4-10.2) mg/dL Microbiology - Last 24 Hours (Table) 12/05/17 21:43 Blood Culture - Preliminary Blood No Growth after 24 hours 12/05/17 20:41 Blood Culture - Preliminary Blood No Growth after 24 hours 12/01/17 22:20 Urine Culture - Final Urine,Catheterized Proteus mirabilis Enterococcus faecalis 12/05/17 20:30 Urine Culture - Preliminary Urine,Catheterized Assessment and Plan Assessment: Impression: 1 acute hypoxic respiratory failure secondary to gram-negative pneumonia, acute gram-negative sepsis and septic shock, 2 acute gram-negative pneumonia and sepsis with septic shock and bacteremia. This is secondary to Proteus mirabilis. 3 acute septic shock and sepsis secondary to pneumonia and secondary to urinary tract infection. Polymicrobial in nature. 4 paroxysmal atrial fibrillation 5 acute on chronic kidney injury secondary to hypotension and septic shock, presented with a picture of acute tubular necrosis. 6 multiple comorbidities including dementia, chronic anemia, and acute on chronic kidney injury. 7 metabolic encephalopathy and underlying dementia. 8 acute hypernatremia, most likely secondary to free water deficit. Hence his IV fluid will be changed to D5W May have to consider a nasogastric tube for nutritional support and for free water flushes. 9 chronic kidney disease and renal failure stage, fluctuating between stage III and stage IV. Presently a stage III. Recommendation: Continue present supportive care measures, change IV fluid to D5W, monitor his hypernatremia and correct accordingly will definitely need some referral eventually to a rehab facility or ECF. We'll continue to follow, infectious disease on the case is addressing the antibiotics, and his pulmonary status seems to be much improved compared to status on admission. We'll continue to follow. Time with Patient: Less than 30
--- NOTE | 2017-12-07 13:42 | P.PN ---
Subjective Patient was admitted for septic shock patient is on ventilator patient is presently on spontaneous breathing trial still remains on pressor support. Patient was started on Coumadin by cardiology patient underwent echocardiogram which showed normal ejection fraction patient is awake off sedation when I evaluated the patient patient remains on Zosyn and levofloxacin infectious disease evaluated the patient vancomycin was discontinued as patient has gram- negative bacteremia urine cultures are also positive for gram-negative bacilli. Patient has clear-cut infiltrate the right middle lobe. Unsure whether etiology of his sepsis is either lung or urine are both. Patient probably can be extubated if the he is doing well with spontaneous breathing trial. Creatinine improved to 1.5 from 2.5 remains on IV fluid heart rate is a low 100s. 12/04/2017 Patient's urine is positive for Proteus mirabilis probably the source of infection I suspicion is low that pneumonia source of infection. Patient is being treated with appropriate antibodies Zosyn patient repeat urine cultures also showing enterococcus although less than 100,000 colonies. Patient was extubated and patient is out of ICU. Constitutional: Denied any fatigue denied any fever. Cardio vascular: denied any chest pain, palpitations Gastrointestinal denied any nausea vomiting Pulmonary: Denied any shortness of breath cough Neurologic denied any new focal deficits 12/05/2017 maintained on Zosyn, nebulized bronchodilators .T-max 99.6, WBC 9.7. Chest x-ray reporting improvement with residual patchiness throughout right lung.Urine culture positive for enterococcus faecialis, blood cultures positive for Proteus Mirabilis. Buttock Wound cultures reporting gram-negative bacilli. MBS reporting no penetration, no aspiration. Echo reporting low normal LV function of 50-55%.telemetry sinus rhythm with PVCs, PACs.Potassium 3.0 receiving supplements. Heparin drip discontinued, now anticoagulated with Eliquis Renal function improving. Sodium 152, chloride 119. 12/06/2017T-max 101.9, WBC 9.9. Wound cultures positive for Proteus Mirabilis, presumptive MRSA. Urine culture positive for enterococcus faecialis,Proteus Mirabilis. Blood cultures positive for Proteus mirabilis. Zosyn discontinued , currently maintained on vancomycin and Unasyn as per ID. Yesterday heparin drip discontinued, Eliquis initiated. Developed hematuria, Eliquis placed on hold. Telemetry reporting atrial fibrillation with controlled ventricular rate .CT reporting no acute intracranial abnormalities. Evaluated by speech therapy , MBS pending. 12/07/2017 Patient is aspirating because of which are patient will remain nothing by mouth. Patient has baseline dementia my extremely poor prognosis patient remains nonverbal patient quality of life is extremely poor. Patient he is severely hyperchloremic along with hyponatremia because of which patient was started on D5 water with trying to reach the public guardian. The most appropriate management for this patient is comfort care and hospice. Objective - Vital Signs Vital signs: Vital Signs Temp 97.3 F L 12/07/17 12:00 Pulse 86 12/07/17 12:02 Resp 18 12/07/17 12:00 BP 142/82 12/07/17 12:00 Pulse Ox 93 L 12/07/17 12:00 Intake & Output 12/06/17 12/07/17 12/07/17 18:59 06:59 18:59 Intake Total 90 Output Total 1550 700 Balance -1550 -610 Weight 70.5 kg 73 kg Intake: IV 90 Sodium Chloride 0.9% 1, 90 000 ml @ 40 mls/hr IV . Q24H [facility] Rx#:[id number] Oral 0 Output: Urine 1550 700 Uretheral (Bhatt) 700 Other: Voiding Method Indwelling Catheter Indwelling Catheter Indwelling Catheter ABP, PAP, CO, CI - Last Documented Arterial Blood Pressure 148/74 - Exam GENERAL: Patient is extubated alert and able does his orientation awake nonverbal HEENT: Pupils are round and equally reacting to light. EOMI. No scleral icterus. No conjunctival pallor. Normocephalic, atraumatic. No pharyngeal erythema. No thyromegaly. CARDIOVASCULAR: S1 and S2 present. No murmurs, rubs, or gallops. PULMONARY: Chest is clear to auscultation, scattered rhonchi throughout, no wheezing or crackles. ABDOMEN: Soft, nontender, nondistended, normoactive bowel sounds. No palpable organomegaly. MUSCULOSKELETAL: No joint swelling or deformity. EXTREMITIES: No cyanosis, clubbing, or pedal edema. NEUROLOGICAL: No focal deficits SKIN: No rashes. - Labs CBC & Chem 7: 12/06/17 05:21 12/07/17 05:43 Labs: Abnormal Lab Results - Last 24 Hours (Table) 12/06/17 12/06/17 12/07/17 Range/Units 16:21 20:54 05:43 INR (<1.2) Sodium 156 H (137-145) mmol/L Potassium 3.4 L (3.5-5.1) mmol/L Chloride 122 H* (98-107) mmol/L BUN 46 H (9-20) mg/dL Creatinine 1.42 H (0.66-1.25) mg/dL Glucose 156 H (74-99) mg/dL POC Glucose (mg/dL) 161 H 172 H (75-99) mg/dL Calcium 7.9 L (8.4-10.2) mg/dL 12/07/17 12/07/17 12/07/17 Range/Units 05:43 06:10 11:22 INR 1.2 H (<1.2) Sodium (137-145) mmol/L Potassium (3.5-5.1) mmol/L Chloride (98-107) mmol/L BUN (9-20) mg/dL Creatinine (0.66-1.25) mg/dL Glucose (74-99) mg/dL POC Glucose (mg/dL) 154 H 167 H (75-99) mg/dL Calcium (8.4-10.2) mg/dL Microbiology - Last 24 Hours (Table) 12/05/17 20:30 Urine Culture - Final Urine,Catheterized 12/05/17 21:43 Blood Culture - Preliminary Blood No Growth after 24 hours 12/05/17 20:41 Blood Culture - Preliminary Blood No Growth after 24 hours 12/01/17 22:20 Urine Culture - Final Urine,Catheterized Proteus mirabilis Enterococcus faecalis Assessment and Plan Plan: -Septic shock possibly secondary to urinary tract infection patient does have bacteremia . Patient has enterococcus in the urine Proteus mirabilis in the urine wound cultures are showing MRSA as well and patient's blood cultures are positive for Proteus mirabilis patient is presently on Unasyn and vancomycin for above-mentioned organisms. Repeat blood cultures are so far negative -Acute hypoxic respiratory failure secondary to sepsis as mentioned above -Acute renal failure secondary to acute tubular necrosis and improved with IV fluids patient had bit of pulmonary edema because of which she received Lasix IV fluids are presently being discontinued. -Atrial fibrillation: Precipitated by sepsis and new onset, patient was started on Coumadin which was subsequently discontinued patient is not a candidate for anticoagulations because of his extreme poor prognosis -Chronic Bhatt catheter -Benign prostatic hypertrophy -Deconditioning with the possibility of dementia baseline -Baseline dementia -Hyperchloremia and hyponatremia secondary to IV fluids which will substitute discontinued patient is receiving D5 water now -Nonverbal state.
--- NOTE | 2017-12-07 14:10 | P.PN ---
Subjective Progress Note Date: 12/07/17 The patient is a 72-year-old man with multiple medical problems including respiratory failure, septic shock, and pneumonia. His mental status status is unchanged. He does have underlying dementia. He is unable to respond to any questions. His eyes are awake and he seems to be attentive but there is no verbal speech. The patient has dementia and likely that dementia is exacerbated by the underlying metabolic encephalopathy that has followed the sepsis Objective - Vital Signs Vital signs: Vital Signs Temp 97.3 F L 12/07/17 12:00 Pulse 86 12/07/17 12:02 Resp 18 12/07/17 12:00 BP 142/82 12/07/17 12:00 Pulse Ox 93 L 12/07/17 12:00 Intake & Output 12/06/17 12/07/17 12/07/17 18:59 06:59 18:59 Intake Total 90 Output Total 1550 700 Balance -1550 -610 Weight 70.5 kg 73 kg Intake: IV 90 Sodium Chloride 0.9% 1, 90 000 ml @ 40 mls/hr IV . Q24H [facility] Rx#:[id number] Oral 0 Output: Urine 1550 700 Uretheral (Bhatt) 700 Other: Voiding Method Indwelling Catheter Indwelling Catheter Indwelling Catheter ABP, PAP, CO, CI - Last Documented Arterial Blood Pressure 148/74 - Constitutional General appearance: Present: average body habitus - Respiratory Respiratory: bilateral: CTA - Cardiovascular Rhythm: regular - Neurologic Neurologic Comment(s): Neurologic examination: Mental status: The patient is awake. His eyes are open. He does not follow commands. Cranial nerves II through XII pupils were 2 mm equal and reactive. There was no facial asymmetry. Next Motor examination: Difficult to test - Labs CBC & Chem 7: 12/06/17 05:21 12/07/17 05:43 Labs: Abnormal Lab Results - Last 24 Hours (Table) 12/06/17 12/06/17 12/07/17 Range/Units 16:21 20:54 05:43 INR (<1.2) Sodium 156 H (137-145) mmol/L Potassium 3.4 L (3.5-5.1) mmol/L Chloride 122 H* (98-107) mmol/L BUN 46 H (9-20) mg/dL Creatinine 1.42 H (0.66-1.25) mg/dL Glucose 156 H (74-99) mg/dL POC Glucose (mg/dL) 161 H 172 H (75-99) mg/dL Calcium 7.9 L (8.4-10.2) mg/dL 12/07/17 12/07/17 12/07/17 Range/Units 05:43 06:10 11:22 INR 1.2 H (<1.2) Sodium (137-145) mmol/L Potassium (3.5-5.1) mmol/L Chloride (98-107) mmol/L BUN (9-20) mg/dL Creatinine (0.66-1.25) mg/dL Glucose (74-99) mg/dL POC Glucose (mg/dL) 154 H 167 H (75-99) mg/dL Calcium (8.4-10.2) mg/dL Microbiology - Last 24 Hours (Table) 12/05/17 20:30 Urine Culture - Final Urine,Catheterized 12/05/17 21:43 Blood Culture - Preliminary Blood No Growth after 24 hours 12/05/17 20:41 Blood Culture - Preliminary Blood No Growth after 24 hours 12/01/17 22:20 Urine Culture - Final Urine,Catheterized Proteus mirabilis Enterococcus faecalis Assessment and Plan (1) Altered mental status Current Visit: No Status: Acute SNOMED Code(s): 126214342 (2) Sepsis Current Visit: Yes Status: Acute SNOMED Code(s): 71926338 (3) Renal insufficiency Current Visit: No Status: Acute SNOMED Code(s): 450180818 (4) Pneumonia Current Visit: Yes Status: Acute SNOMED Code(s): 459055174 Plan: The patient is a 72-year-old man who was recently readmitted to the hospital from [facility] with lethargy altered mental status and sepsis. The patient is unable to verbalize. He does have baseline dementia . He has had a CAT scan of the brain which showed atrophy and small vessel disease. Patient has dementia with exacerbation from underlying metabolic encephalopathy due to sepsis. Plan is to continue supportive care.
[2017-12-07 16:24] LABS: Glucose,Whole Blood 164 mg/dL (75-99)
[2017-12-07 21:29] LABS: Glucose,Whole Blood 166 mg/dL (75-99)
--- NOTE | 2017-12-08 00:15 | PN ---
PROGRESS NOTE DATE OF SERVICE: 12/07/2017. REASON FOR FOLLOWUP: 1. Aspiration pneumonia. 2. Unstageable sacral pressure ulcer. INTERVAL HISTORY: The patient is afebrile. The patient is currently n.p.o., as he failed his swallow evaluation. He seemed to be slightly lethargic. No nausea or vomiting has been noticed or any diarrhea per the nursing staff. EXAMINATION: Blood pressure is 134/78 with a pulse of 89, temperature of 98.6. He is 92% on room air. General description is an elderly male lying in bed in no distress. RESPIRATORY SYSTEM: Unlabored breathing with decreased breath sounds in the bases. No wheeze. HEART: S1, S2. Regular rate and rhythm. ABDOMEN: Soft. No tenderness. SACRAL AREA: He did have a ulcer with sacral pressure ulcer with necrotic tissue. No surrounding erythema. LABS: Hemoglobin is 10.8, white count 9.9. BUN of 46, creatinine 1.42. DIAGNOSTIC IMPRESSION AND PLAN: Patient with Proteus mirabilis, Enterococcus faecalis catheter-associated urinary tract infection with secondary bacteremia, currently covered with the Unasyn. He also has some superficial culture obtained from the sacral area which came back positive for methicillin-resistant Staphylococcus aureus. However at the sacral area, he has mostly unstageable pressure ulcer. Nursing has been advised to keep the area dry and off pressure with frequent change of his position. Vancomycin will be continued while watching his kidney function closely. Continue supportive care. MJ / SILVIA: [id number] /
[2017-12-08] MEDS: DEXTROSE 5% IN WATER 1,000 ML IV SCH ×3 (00:18→21:33)
[2017-12-08] MEDS: AMPICILLIN-SULBACTAM 3 GM in SODIUM CHLORIDE 0.9% 100 ML IVPB SCH ×4 (00:30→16:57)
[2017-12-08 01:40] LABS: Magnesium 2.3 mg/dL (1.6-2.3); Potassium 3.5 mmol/L (3.5-5.1)
[2017-12-08 05:09] VITALS: RESP 18
[2017-12-08 06:02] LABS: Glucose,Whole Blood 190 mg/dL (75-99)
[2017-12-08] MEDS: INSULIN ASPART 100 UNIT/ML 1 ML 10 ML VIAL SQ SCH ×4 (06:28→21:34)
[2017-12-08 06:41] LABS: HCT 36.9 % (39.0-53.0); HGB 11.5 gm/dL (13.0-17.5); Hypochromasia Moderate; MCH 28.9 pg (25.0-35.0); MCHC 31.1 g/dL (31.0-37.0); Mean Platelet Volume 7.9; Platelet Count 354 k/uL (150-450); RBC 3.97 m/uL (4.30-5.90); WBC 14.5 k/uL (3.8-10.6)
[2017-12-08 06:43] LABS: INR 1.3 (<1.2); Prothrombin Time 12.2 sec (9.0-12.0)
[2017-12-08 06:54] LABS: Calcium 7.8 mg/dL (8.4-10.2); Potassium 3.4 mmol/L (3.5-5.1)
[2017-12-08] MEDS: IPRATROPIUM-ALBUTEROL 3 ML NEB INHALATION SCH ×4 (07:01→20:32)
[2017-12-08] MEDS: ASPIRIN 81 MG PO SCH (07:49)
[2017-12-08] MEDS: hydrALAZINE HCL 25 MG TAB PO SCH ×2 (07:49→21:43)
[2017-12-08] MEDS: APIXABAN 5 MG TAB PO SCH ×2 (07:49→21:43)
[2017-12-08] MEDS: PANTOPRAZOLE 40 MG/10 ML VIAL IVP SCH (07:55)
[2017-12-08] MEDS: POTASSIUM CHLORIDE 10 MEQ in WATER FOR INJECTION 1 100ML.BAG IVPB SCH ×6 (08:48→22:47)
[2017-12-08] MEDS ORDERED: VANCOMYCIN TROUGH DUE 1 EACH MISC MISCELLANE ONE (11:00)
--- NOTE | 2017-12-08 11:42 | P.PN ---
Subjective Progress Note Date: 12/08/17 Principal diagnosis: Acute respiratory failure, acute sepsis and septic shock, right sided pneumonia. Mr. Hester is a 72-year-old white male patient from [facility], was brought to the emergency department on 12/01/2017 at 2219 by ambulance, for concerns of abnormal labs, namely abnormal renal profile and white blood cell count, and altered mentation. Patient was increasingly lethargic at the [facility]. Patient does have dementia at his baseline. He was recently hospitalized from 10/31/2017 through 11/04/2017 for Enterococcus faecalis urinary tract infection, acute kidney injury. Patient had significant clinical improvement, received IV fluid hydration, renal profile had improved, creatinine was at 1.74 at discharge. In the emergency department patient was increasingly more lethargic, became hypoxemic, with pulse ox of 84%, febrile, with a temp of 10 1F, he went into atrial fibrillation with rapid ventricular response. He was then intubated and placed on mechanical ventilator. Initial chest x-ray showed airspace opacities within the lung bases, low lung volumes and atelectasis, pneumonia could not be excluded. Follow-up chest x-rays post intubation showed ET tube at 4.5 cm above the elizabeth, which showed patchy pneumonic consolidation in the right lung. This morning chest x-ray shows increasing right lower lobe consolidation. Labs showed mild leukocytosis WBC of 13.8, hemoglobin 11.9, INR 1.3, B1 of 97, creatinine is 2.6, lites were unremarkable, plasma lactic acid 3.2, CK-MB is 9.5, troponin 0.072, proBNP 2530 , urinalysis showed large amount of leukocyte esterase, pyuria, and red blood cells. Urine drug screen was negative. Patient has received a total of 2.5 L of 0.9 normal saline and fluid boluses, he remains on mechanical ventilator, sedated, currently on Diprivan and at 15 mics per kilo per minute, Cardizem drip is infusing at a rate of 5 mg per hour, 0.9 at 20 ML per hour. Current vent settings assist control mode with a rate of 16, tidal volume 500, FiO2 of 100% and PEEP of 5. Blood gas this morning's pO2 of 82, pCO2 45, pH of 7.35 is done on FiO2 100%. Blood cultures, sputum and urine cultures were ordered, and are pending at this time. Patient has a chronic indwelling catheter, history of urinary retention, benign prostatic hypertrophy, and previous history of sacral ulcer. Urine output is still marginal, has been a total of 500 mL of cloudy urine since patient's arrival to the emergency department last night. Blood pressures are marginal, currently at 19/53, with a mean of 68, patient is tachypneic, breathing at 26 breaths per minute, he needs to be adequately sedated. He received a dose of Levaquin and Zosyn, we're consulted in regards to right lower lobe pneumonia, critical care management Patient was reevaluated today on 12/03/2017, remains on mechanical ventilation, ventilator settings are tidal volume of 500, assist control rate of 16 FiO2 of 40%, and PEEP of 5. ABG showed a pO2 of 116 pCO2 of 38 and pH of 7.40. Hence his FiO2 was decreased from 50% to 40%. Patient remains on norepinephrine at 10 mcg/m, he has excellent urine output, and as we wake him up today, I plan to taper and possibly discontinue norepinephrine. Patient has good urine output, renal functioning is significantly improving, and creatinine today is 1.90, definitely improved since yesterday. Blood cultures are positive for gram- negative bacilli, hence we have a [place] organism causing his sepsis and septic shock, and a chest x-ray is showing some improvement in his right sided pneumonia, therefore, I decided to cancel bronchoscopy today. This is based on the fact that we have a specific organism to treat, and based on the fact that his chest x-ray is improving, and his hemodynamic status is also improving. Obviously patient is responding well to treatment over the last 24 hours. WBC count is 15.9 hemoglobin is 9.3 basic metabolic profile is normal. Sputum cultures are pending but blood cultures are negative for gram-negative bacilli. Patient remains on Zosyn and Levaquin. And his vancomycin will be discontinued. Patient remains on propofol, and I plan to hold propofol, and hopefully give the patient a spontaneous breathing trial later on today. Nutrition-mcqueen, the patient will continue on enteral feeding as per home health clinician on the case. Patient was reevaluated today on 12/04/2017, he was extubated yesterday, tolerated the extubation relatively well. At night, the patient developed some shortness of breath, agitation, and he sounded wet according to the nurse taking care of the patient. Patient was given Lasix 40 mg IV push, placed on BiPAP, but he kept removing it. Did well overnight, and today he is on nasal cannula, not requiring any oxygen and not requiring BiPAP. Patient has dementia and he is is not verbal. He seems to be comfortable and not in any form of distress. His cultures however came back, and his urine is positive for group D enterococcus, his blood culture is positive for Proteus mirabilis and the most likely source of that is the urine unless proven otherwise. Final urine culture is pending. His sacral decub culture is still pending. Hence infectious disease incident response consultant will be notified about the cultures, and antibiotics would need to be changed accordingly. Patient is hemodynamically stable, off norepinephrine, he was on 2 g of norepinephrine earlier this morning. Hence this was discontinued, and we will likely transfer the patient out of the ICU today. Chest x-ray continues to show extensive airspace disease involving the right lung. There is also evidence of left basilar atelectasis and possibly infiltrate in the left lower lobe. Swallow evaluation was performed, no penetration or aspiration noted. Labs were reviewed his sodium seems to be coming up, and is 149 today, hence the patient will be given more free water. WBC count is down to 12.7 hemoglobin is 9.2. Creatinine is 1.6. Patient looks comfortable, in no distress, and he is off oxygen. O2 saturation is in the low 90s. Patient was reevaluated today on 12/07/2017, remains on selective/monitor bed, patient is being treated for sepsis, pneumonia, and urinary tract infection, patient had septic shock upon presentation. He was eventually extubated, and he is now being seen for underlying dementia and possible CVA by neurology. Patient is aphasic, and has been aphasic all along since he presented to the hospital. CT of the brain showed atrophy and small vessel disease, and I strongly believe his mental status change is probably poor baseline to begin with, underlying dementia, and he does have metabolic encephalopathy especially with his sodium climbing up today up to 156, has been gradually climbing up, today I have changes IV fluid to D5W, may consider a nasogastric tube and free water via nasogastric tube. Pulmonary-mcqueen the patient is on room air, in no distress, we are still treating him for right sided pneumonia. His cultures from the blood showed Proteus mirabilis. His urine cultures came back positive for Enterococcus faecalis and positive for Proteus mirabilis his wound culture is also positive for MRSA and Proteus mirabilis. At any rate the dose are being addressed by infectious disease on the case, and I'm not addressing the antibiotics at this point. Patient was reevaluated today on 12/08/2017, remains aphasic, confused, in no form of respiratory distress, patient continues to have elevated sodium, I recommended keeping him on D5W, and I have considered placing a nasogastric tube for free water flushes and also for feeding. However the nurse taking care of the patient informed me that patient may have hospice evaluation. If that is truly the case, there is no need to put a nasogastric tube and no need to start any feeding at this point. CBC is normal. WBC count is 14.5 however. His sodium is 155 chloride is 123 BUN is 39 and creatinine is 1.34. Patient is aphasic, does not verbalize, and again he is in no form of distress. All his cultures from the blood urine and sputum were all reviewed. Objective - Vital Signs Vital signs: Vital Signs Temp 98.3 F 12/08/17 08:00 Pulse 92 12/08/17 11:12 Resp 18 12/08/17 08:00 BP 98/57 12/08/17 08:00 Pulse Ox 93 L 12/08/17 08:00 Intake & Output 12/07/17 12/08/17 12/08/17 18:59 06:59 18:59 Intake Total 750 Output Total 1400 1800 Balance -1400 -1050 Weight 70 kg Intake: Intake, IV Titration 750 Amount Dextrose 5% in Water 1, 750 000 ml @ 75 mls/hr IV . [id number] [facility] Rx#:[id number] Output: Urine 1400 1800 Uretheral (Bhatt) 1800 Other: Voiding Method Indwelling Catheter Indwelling Catheter Indwelling Catheter ABP, PAP, CO, CI - Last Documented Arterial Blood Pressure 148/74 - Exam Physical Exam: Revealed a 72-year-old white male sedated, on room air, in no distress.. Aphasic, confused. Head: Atraumatic, normocephalic. Patient is aphasic, nonverbal. . HEENT:[Neck is supple.] [No neck masses.] [No thyromegaly.] [No JVD.] PERRLA, EOMI, no icterus. Moist mucous membranes noted. Chest: [Minimal crackles at the right base persist. Symmetrical chest expansion was noted. No chest wall tenderness.] Cardiac Exam: [Normal S1 and S2, no S3 gallop, no murmur.] Abdomen: [Soft, nontender, no megaly, no rebound, no guarding, normal bowel sounds.] Extremities: [No clubbing, no edema, no cyanosis.] Neurological Exam: Patient is confused, nonverbal, aphasic, moves all extremities, does not follow instructions and does not respond appropriately to verbal stimuli. - Labs CBC & Chem 7: 12/08/17 05:41 12/08/17 05:41 Labs: Abnormal Lab Results - Last 24 Hours (Table) 12/07/17 12/07/17 12/08/17 Range/Units 16:18 21:09 05:41 WBC (3.8-10.6) k/uL RBC (4.30-5.90) m/uL Hgb (13.0-17.5) gm/dL Hct (39.0-53.0) % RDW (11.5-15.5) % PT 12.2 H (9.0-12.0) sec INR 1.3 H (<1.2) Sodium (137-145) mmol/L Potassium (3.5-5.1) mmol/L Chloride (98-107) mmol/L BUN (9-20) mg/dL Creatinine (0.66-1.25) mg/dL Glucose (74-99) mg/dL POC Glucose (mg/dL) 164 H 166 H (75-99) mg/dL Calcium (8.4-10.2) mg/dL 12/08/17 12/08/17 12/08/17 Range/Units 05:41 05:41 05:57 WBC 14.5 H (3.8-10.6) k/uL RBC 3.97 L (4.30-5.90) m/uL Hgb 11.5 L (13.0-17.5) gm/dL Hct 36.9 L (39.0-53.0) % RDW 16.0 H (11.5-15.5) % PT (9.0-12.0) sec INR (<1.2) Sodium 155 H (137-145) mmol/L Potassium 3.4 L (3.5-5.1) mmol/L Chloride 123 H* (98-107) mmol/L BUN 39 H (9-20) mg/dL Creatinine 1.34 H (0.66-1.25) mg/dL Glucose 204 H (74-99) mg/dL POC Glucose (mg/dL) 190 H (75-99) mg/dL Calcium 7.8 L (8.4-10.2) mg/dL Microbiology - Last 24 Hours (Table) 12/05/17 21:43 Blood Culture - Preliminary Blood No Growth after 48 hours 12/05/17 20:41 Blood Culture - Preliminary Blood No Growth after 48 hours 12/03/17 14:55 Gram Stain - Final Buttock Wound Culture - Final Proteus mirabilis Methicillin resist S. aureus 12/05/17 20:30 Urine Culture - Final Urine,Catheterized Assessment and Plan Assessment: Impression: 1 acute hypoxic respiratory failure secondary to gram-negative pneumonia, acute gram-negative sepsis and septic shock, 2 acute gram-negative pneumonia and sepsis with septic shock and bacteremia. This is secondary to Proteus mirabilis. 3 acute septic shock and sepsis secondary to pneumonia and secondary to urinary tract infection. Polymicrobial in nature. 4 paroxysmal atrial fibrillation 5 acute on chronic kidney injury secondary to hypotension and septic shock, presented with a picture of acute tubular necrosis. 6 multiple comorbidities including dementia, chronic anemia, and acute on chronic kidney injury. 7 metabolic encephalopathy and underlying dementia. 8 acute hypernatremia, most likely secondary to free water deficit. Hence his IV fluid will be changed to D5W May have to consider a nasogastric tube for nutritional support and for free water flushes. 9 chronic kidney disease and renal failure stage, fluctuating between stage III and stage IV. Presently a stage III. Recommendation: Continue present supportive care measures, continue IV fluid at D5W at 75 mL per hour, agree with hospice referral, however if the patient is not made hospice I strongly recommended nasogastric tube placement, tube feeding , even a PEG tube placement, and correction of his elevated sodium with free water flushes. We'll continue to follow. Time with Patient: Less than 30
[2017-12-08 11:53] LABS: Glucose,Whole Blood 213 mg/dL (75-99)
--- NOTE | 2017-12-08 12:48 | P.PN ---
Subjective Patient was admitted for septic shock patient is on ventilator patient is presently on spontaneous breathing trial still remains on pressor support. Patient was started on Coumadin by cardiology patient underwent echocardiogram which showed normal ejection fraction patient is awake off sedation when I evaluated the patient patient remains on Zosyn and levofloxacin infectious disease evaluated the patient vancomycin was discontinued as patient has gram- negative bacteremia urine cultures are also positive for gram-negative bacilli. Patient has clear-cut infiltrate the right middle lobe. Unsure whether etiology of his sepsis is either lung or urine are both. Patient probably can be extubated if the he is doing well with spontaneous breathing trial. Creatinine improved to 1.5 from 2.5 remains on IV fluid heart rate is a low 100s. 12/04/2017 Patient's urine is positive for Proteus mirabilis probably the source of infection I suspicion is low that pneumonia source of infection. Patient is being treated with appropriate antibodies Zosyn patient repeat urine cultures also showing enterococcus although less than 100,000 colonies. Patient was extubated and patient is out of ICU. Constitutional: Denied any fatigue denied any fever. Cardio vascular: denied any chest pain, palpitations Gastrointestinal denied any nausea vomiting Pulmonary: Denied any shortness of breath cough Neurologic denied any new focal deficits 12/05/2017 maintained on Zosyn, nebulized bronchodilators .T-max 99.6, WBC 9.7. Chest x-ray reporting improvement with residual patchiness throughout right lung.Urine culture positive for enterococcus faecialis, blood cultures positive for Proteus Mirabilis. Buttock Wound cultures reporting gram-negative bacilli. MBS reporting no penetration, no aspiration. Echo reporting low normal LV function of 50-55%.telemetry sinus rhythm with PVCs, PACs.Potassium 3.0 receiving supplements. Heparin drip discontinued, now anticoagulated with Eliquis Renal function improving. Sodium 152, chloride 119. 12/06/2017T-max 101.9, WBC 9.9. Wound cultures positive for Proteus Mirabilis, presumptive MRSA. Urine culture positive for enterococcus faecialis,Proteus Mirabilis. Blood cultures positive for Proteus mirabilis. Zosyn discontinued , currently maintained on vancomycin and Unasyn as per ID. Yesterday heparin drip discontinued, Eliquis initiated. Developed hematuria, Eliquis placed on hold. Telemetry reporting atrial fibrillation with controlled ventricular rate .CT reporting no acute intracranial abnormalities. Evaluated by speech therapy , MBS pending. 12/07/2017 Patient is aspirating because of which are patient will remain nothing by mouth. Patient has baseline dementia my extremely poor prognosis patient remains nonverbal patient quality of life is extremely poor. Patient he is severely hyperchloremic along with hyponatremia because of which patient was started on D5 water with trying to reach the public guardian. The most appropriate management for this patient is comfort care and hospice. 12/08/2017 No cigarette unchanged compared to yesterday any further aggressive care will be futile care for the patient. Once we're able to reach the guardian patient will be made comfort care hospice. Objective - Vital Signs Vital signs: Vital Signs Temp 98.3 F 12/08/17 08:00 Pulse 92 12/08/17 11:12 Resp 18 12/08/17 08:00 BP 98/57 12/08/17 08:00 Pulse Ox 93 L 12/08/17 08:00 Intake & Output 12/07/17 12/08/17 12/08/17 18:59 06:59 18:59 Intake Total 750 Output Total 1400 1800 Balance -1400 -1050 Weight 70 kg Intake: Intake, IV Titration 750 Amount Dextrose 5% in Water 1, 750 000 ml @ 75 mls/hr IV . [id number] COUNTS INCLUDE 234 BEDS AT THE [facility] Rx#:[id number] Output: Urine 1400 1800 Uretheral (Bhatt) 1800 Other: Voiding Method Indwelling Catheter Indwelling Catheter Indwelling Catheter ABP, PAP, CO, CI - Last Documented Arterial Blood Pressure 148/74 - Exam GENERAL: Patient is extubated alert and able does his orientation awake nonverbal HEENT: Pupils are round and equally reacting to light. EOMI. No scleral icterus. No conjunctival pallor. Normocephalic, atraumatic. No pharyngeal erythema. No thyromegaly. CARDIOVASCULAR: S1 and S2 present. No murmurs, rubs, or gallops. PULMONARY: Chest is clear to auscultation, scattered rhonchi throughout, no wheezing or crackles. ABDOMEN: Soft, nontender, nondistended, normoactive bowel sounds. No palpable organomegaly. MUSCULOSKELETAL: No joint swelling or deformity. EXTREMITIES: No cyanosis, clubbing, or pedal edema. NEUROLOGICAL: No focal deficits SKIN: No rashes. - Labs CBC & Chem 7: 12/08/17 05:41 12/08/17 05:41 Labs: Abnormal Lab Results - Last 24 Hours (Table) 12/07/17 12/07/17 12/08/17 Range/Units 16:18 21:09 05:41 WBC (3.8-10.6) k/uL RBC (4.30-5.90) m/uL Hgb (13.0-17.5) gm/dL Hct (39.0-53.0) % RDW (11.5-15.5) % PT 12.2 H (9.0-12.0) sec INR 1.3 H (<1.2) Sodium (137-145) mmol/L Potassium (3.5-5.1) mmol/L Chloride (98-107) mmol/L BUN (9-20) mg/dL Creatinine (0.66-1.25) mg/dL Glucose (74-99) mg/dL POC Glucose (mg/dL) 164 H 166 H (75-99) mg/dL Calcium (8.4-10.2) mg/dL 12/08/17 12/08/17 12/08/17 Range/Units 05:41 05:41 05:57 WBC 14.5 H (3.8-10.6) k/uL RBC 3.97 L (4.30-5.90) m/uL Hgb 11.5 L (13.0-17.5) gm/dL Hct 36.9 L (39.0-53.0) % RDW 16.0 H (11.5-15.5) % PT (9.0-12.0) sec INR (<1.2) Sodium 155 H (137-145) mmol/L Potassium 3.4 L (3.5-5.1) mmol/L Chloride 123 H* (98-107) mmol/L BUN 39 H (9-20) mg/dL Creatinine 1.34 H (0.66-1.25) mg/dL Glucose 204 H (74-99) mg/dL POC Glucose (mg/dL) 190 H (75-99) mg/dL Calcium 7.8 L (8.4-10.2) mg/dL 12/08/17 Range/Units 11:50 WBC (3.8-10.6) k/uL RBC (4.30-5.90) m/uL Hgb (13.0-17.5) gm/dL Hct (39.0-53.0) % RDW (11.5-15.5) % PT (9.0-12.0) sec INR (<1.2) Sodium (137-145) mmol/L Potassium (3.5-5.1) mmol/L Chloride (98-107) mmol/L BUN (9-20) mg/dL Creatinine (0.66-1.25) mg/dL Glucose (74-99) mg/dL POC Glucose (mg/dL) 213 H (75-99) mg/dL Calcium (8.4-10.2) mg/dL Microbiology - Last 24 Hours (Table) 12/05/17 21:43 Blood Culture - Preliminary Blood No Growth after 48 hours 12/05/17 20:41 Blood Culture - Preliminary Blood No Growth after 48 hours 12/03/17 14:55 Gram Stain - Final Buttock Wound Culture - Final Proteus mirabilis Methicillin resist S. aureus 12/05/17 20:30 Urine Culture - Final Urine,Catheterized Assessment and Plan Plan: -Septic shock possibly secondary to urinary tract infection patient does have bacteremia . Patient has enterococcus in the urine Proteus mirabilis in the urine wound cultures are showing MRSA as well and patient's blood cultures are positive for Proteus mirabilis patient is presently on Unasyn and vancomycin for above-mentioned organisms. Repeat blood cultures are so far negative -Acute hypoxic respiratory failure secondary to sepsis as mentioned above -Acute renal failure secondary to acute tubular necrosis and improved with IV fluids patient had bit of pulmonary edema because of which she received Lasix IV fluids are presently being discontinued. -Atrial fibrillation: Precipitated by sepsis and new onset, patient was started on Coumadin which was subsequently discontinued patient is not a candidate for anticoagulations because of his extreme poor prognosis -Chronic Bhatt catheter -Benign prostatic hypertrophy -Deconditioning with the possibility of dementia baseline -Baseline dementia -Hyperchloremia and hyponatremia secondary to IV fluids which will substitute discontinued patient is receiving D5 water now -Nonverbal state.
[2017-12-08] MEDS: VANCOMYCIN 1,250 MG in SODIUM CHLORIDE 0.9% 250 ML IVPB SCH (13:23)
--- NOTE | 2017-12-08 13:55 | EEG ---
ELECTROENCEPHALOGRAM REPORT DATE OF EE12/07/2017. REFERRING PHYSICIAN: Dr. Acuña. ELECTROENCEPHALOGRAPHIC EXAMINATION REPORT: INDICATION FOR EXAMINATION: This patient is a 72-year-old male being evaluated for altered mental status and possible stroke. Patient has history of underlying dementia. AGE: 72 EEG FINDINGS: A routine 21 channel awake digital EEG recording was accomplished utilizing the 10-20 international system with bipolar and referential montages. The background activity in the most alert resting state consists of a low to medium amplitude, poorly developed and poorly sustained 5-6 Hz activity over the posterior head regions. This posterior rhythm attenuates to eye opening. There is a small amount of low amplitude 18-20 Hz beta activity seen maximally over the anterior head regions. Muscle and movement artifact was observed on a few occasions during the tracing. No activation procedures were performed. No epileptiform discharges were seen. IMPRESSION: This EEG is moderately abnormal in a diffuse fashion due to slowing of the EEG background. The EEG failed to reveal any focal, lateralized, or epileptiform abnormalities. Clinical correlation is recommended. MMODL / IJN: [id number] /
[2017-12-08 16:50] LABS: Glucose,Whole Blood 138 mg/dL (75-99)
[2017-12-08 20:27] LABS: Glucose,Whole Blood 164 mg/dL (75-99)
--- NOTE | 2017-12-08 22:55 | PN ---
PROGRESS NOTE DATE OF SERVICE: 12/08/2017. REASON FOR FOLLOWUP: 1. Aspiration pneumonia. 2. Sacral pressure ulcer. INTERVAL HISTORY: The patient is afebrile. He is hemodynamically stable. Breathing comfortably. Currently n.p.o. No nausea or vomiting has been noticed or any diarrhea. PHYSICAL EXAMINATION: On admission blood pressure is 97/56, pulse of 77, temperature of 96.9. He is 94% on room air. General description is an elderly male up in the bed in no distress. Respiratory system unlabored breathing. Decreased breath sounds in the bases. No wheeze. Heart S1, S2. Regular rate and rhythm. Abdomen soft, no tenderness. LABS: Hemoglobin is 11.5, white count of 14.5 today. BUN of 39, creatinine 1.34. Blood culture has been negative so far. DIAGNOSTIC IMPRESSION AND PLAN: 1. Patient admitted to the hospital with Proteus mirabilis bacteremia secondary to urinary source with a question of aspiration pneumonia. Currently covered with Unasyn. 2. Patient with unstageable sacral pressure ulcer with culture positive for MRSA. A question of possible skin colonization. Recommend to keep the area dry and off the pressure. Short course of vancomycin at this point watching his kidney function closely. Continue supportive care. MMODL / IJN: [id number] /
[2017-12-09] MEDS: AMPICILLIN-SULBACTAM 3 GM in SODIUM CHLORIDE 0.9% 100 ML IVPB SCH ×3 (00:04→11:28)
[2017-12-09] MEDS: VANCOMYCIN 1,250 MG in SODIUM CHLORIDE 0.9% 250 ML IVPB SCH (04:14)
[2017-12-09 05:47] LABS: Glucose,Whole Blood 159 mg/dL (75-99)
[2017-12-09 06:07] LABS: INR 1.3 (<1.2); Prothrombin Time 12.3 sec (9.0-12.0)
[2017-12-09] MEDS: INSULIN ASPART 100 UNIT/ML 1 ML 10 ML VIAL SQ SCH ×2 (06:45→15:54)
[2017-12-09] MEDS: APIXABAN 5 MG TAB PO SCH (07:42)
[2017-12-09] MEDS: hydrALAZINE HCL 25 MG TAB PO SCH (07:42)
[2017-12-09] MEDS: ASPIRIN 81 MG PO SCH (07:42)
[2017-12-09] MEDS: PANTOPRAZOLE 40 MG/10 ML VIAL IVP SCH (08:01)
[2017-12-09] MEDS: IPRATROPIUM-ALBUTEROL 3 ML NEB INHALATION SCH ×3 (08:20→16:22)
[2017-12-09 08:30] LABS: Calcium 7.5 mg/dL (8.4-10.2); Potassium 3.6 mmol/L (3.5-5.1)
[2017-12-09 08:46] LABS: Anisocytosis Slight; Basophils % (A) 0 %; Eosinophils # (A) 0.2 k/uL (0-0.7); Eosinophils % (A) 1 %; HCT 33.5 % (39.0-53.0); HGB 10.3 gm/dL (13.0-17.5); Hypochromasia Moderate; Lymphocytes # (A) 1.1 k/uL (1.0-4.8); Lymphocytes % (A) 8 %; MCH 28.5 pg (25.0-35.0); MCHC 30.8 g/dL (31.0-37.0); MCV 92.6 fL (80.0-100.0); Monocytes # (A) 0.4 k/uL (0-1.0); Monocytes % (A) 3 %; Neutrophils % (A) 88 %; Platelet Count 348 k/uL (150-450); RBC 3.62 m/uL (4.30-5.90); WBC 13.7 k/uL (3.8-10.6)
[2017-12-09] MEDS: DEXTROSE 5% IN WATER 1,000 ML IV SCH (11:30)
[2017-12-09 11:36] VITALS: BMI 22.4
[2017-12-09 11:37] LABS: Glucose,Whole Blood 169 mg/dL (75-99)
--- NOTE | 2017-12-09 12:23 | P.DS ---
Providers Date of admission: 12/02/17 00:18 Expected date of discharge: 12/09/17 Attending physician: Jhonny Arenas Consults: 12/02/17 04:40 Consult Physician Routine Consulting Provider: Carlos Ingram Consult Reason/Comments: Atrial fibrillation with rapid ventricular rate Do you want consulting provider notified?: Yes Consult Physician Stat Consulting Provider: Shanita Blankenshpi Consult Reason/Comments: Intensive care. Pneumonia. Sepsis. Atrial fibrillation with rapid rate. Do you want consulting provider notified?: Already Contacted 12/02/17 10:05 Consult Physician Routine Consulting Provider: Jessica Weldon Consult Reason/Comments: sepsis, pneumonia Do you want consulting provider notified?: Yes 12/06/17 06:06 Consult Physician Routine Consulting Provider: Brinda Franco Consult Reason/Comments: AMS, R/O CVA Do you want consulting provider notified?: Yes Primary care physician: [facility] Course: Final Diagnoses -Septic shock possibly secondary to urinary tract infection patient does have bacteremia . Patient has enterococcus in the urine Proteus mirabilis in the urine wound cultures are showing MRSA as well and patient's blood cultures are positive for Proteus mirabilis patient is presently on Unasyn and vancomycin for above-mentioned organisms. Repeat blood cultures are so far negative -Acute hypoxic respiratory failure secondary to sepsis as mentioned above -Acute renal failure secondary to acute tubular necrosis and improved with IV fluids patient had bit of pulmonary edema because of which she received Lasix IV fluids are presently being discontinued. -Atrial fibrillation: Precipitated by sepsis and new onset, patient was started on Coumadin which was subsequently discontinued patient is not a candidate for anticoagulations because of his extreme poor prognosis -Chronic Bhatt catheter -Benign prostatic hypertrophy -Deconditioning with the possibility of dementia baseline -Baseline dementia -Hyperchloremia and hyponatremia secondary to IV fluids which will substitute discontinued patient is receiving D5 water now -Nonverbal state. -No Code, NO CPR, No INTUBATION - COMFORT Care, HOSPICE [facility]Ourse: Patient was admitted for septic shock patient is on ventilator patient is presently on spontaneous breathing trial still remains on pressor support. Patient was started on Coumadin by cardiology patient underwent echocardiogram which showed normal ejection fraction patient is awake off sedation when I evaluated the patient patient remains on Zosyn and levofloxacin infectious disease evaluated the patient vancomycin was discontinued as patient has gram- negative bacteremia urine cultures are also positive for gram-negative bacilli. Patient has clear-cut infiltrate the right middle lobe. Unsure whether etiology of his sepsis is either lung or urine are both. Patient probably can be extubated if the he is doing well with spontaneous breathing trial. Creatinine improved to 1.5 from 2.5 remains on IV fluid heart rate is a low 100s. 12/04/2017 Patient's urine is positive for Proteus mirabilis probably the source of infection I suspicion is low that pneumonia source of infection. Patient is being treated with appropriate antibodies Zosyn patient repeat urine cultures also showing enterococcus although less than 100,000 colonies. Patient was extubated and patient is out of ICU. Constitutional: Denied any fatigue denied any fever. Cardio vascular: denied any chest pain, palpitations Gastrointestinal denied any nausea vomiting Pulmonary: Denied any shortness of breath cough Neurologic denied any new focal deficits 12/05/2017 maintained on Zosyn, nebulized bronchodilators .T-max 99.6, WBC 9.7. Chest x-ray reporting improvement with residual patchiness throughout right lung.Urine culture positive for enterococcus faecialis, blood cultures positive for Proteus Mirabilis. Buttock Wound cultures reporting gram-negative bacilli. MBS reporting no penetration, no aspiration. Echo reporting low normal LV function of 50-55%.telemetry sinus rhythm with PVCs, PACs.Potassium 3.0 receiving supplements. Heparin drip discontinued, now anticoagulated with Eliquis Renal function improving. Sodium 152, chloride 119. 12/06/2017T-max 101.9, WBC 9.9. Wound cultures positive for Proteus Mirabilis, presumptive MRSA. Urine culture positive for enterococcus faecialis,Proteus Mirabilis. Blood cultures positive for Proteus mirabilis. Zosyn discontinued , currently maintained on vancomycin and Unasyn as per ID. Yesterday heparin drip discontinued, Eliquis initiated. Developed hematuria, Eliquis placed on hold. Telemetry reporting atrial fibrillation with controlled ventricular rate .CT reporting no acute intracranial abnormalities. Evaluated by speech therapy , MBS pending. 12/07/2017 Patient is aspirating because of which are patient will remain nothing by mouth. Patient has baseline dementia my extremely poor prognosis patient remains nonverbal patient quality of life is extremely poor. Patient he is severely hyperchloremic along with hyponatremia because of which patient was started on D5 water with trying to reach the public guardian. The most appropriate management for this patient is comfort care and hospice. 12/08/2017 Not unchanged compared to yesterday any further aggressive care will be futile care for the patient. Once we're able to reach the guardian patient will be made comfort care hospice. 12/09/17 Spoke with Public Legal Guardian's Office, Aisha/ Ruma. Per Verbal authorization from Ruma Leonard Legal Guardian wishes patient to proceed back to [facility] with comfort care/hospice.Patient is being discharge back to [facility]. Hospice being aranged as per medical social worker. The impression and plan of care has been dictated as directed. : I performed a history and examination of this patient, discussed the same with the dictator. I agree with the dictator's note ,documented as a scribe. Any additional findings or plans will be noted. TIme taken: 35 MIN Patient Condition at Discharge: Poor Plan - Discharge Summary Discharge Rx Participant: No New Discharge Prescriptions: New Acetaminophen Suppository [Tylenol Suppository] 650 mg RECTAL Q4HR PRN supp PRN Reason: Fever And/ Or Mild Pain Ipratropium-Albuterol Nebulize [Duoneb 0.5 mg-3 mg/3 ml Soln] 3 ml INHALATION RT-QID ampul.neb LORazepam [Ativan] 0.5 mg SL TID PRN #9 tab PRN Reason: Anxiety MORPHINE ORAL MYA CONC 20mg/mL [Roxanol Oral Soln Conc 20MG/ML] 10 mg SL Q4H PRN 3 Days #9 ml PRN Reason: Pain Scopolamine 1.5MG/72Hr Patch [TransDerm Scop] 1 patch TRANSDERM Q72H #3 patch Discharge Medication List Acetaminophen Suppository [Tylenol Suppository] 650 mg RECTAL Q4HR PRN supp [Rx] Ipratropium-Albuterol Nebulize [Duoneb 0.5 mg-3 mg/3 ml Soln] 3 ml INHALATION RT -QID ampul.neb 12/09/17 [Rx] LORazepam [Ativan] 0.5 mg SL TID PRN #9 tab 12/09/17 [Rx] MORPHINE ORAL MYA CONC 20mg/mL [Roxanol Oral Soln Conc 20MG/ML] 10 mg SL Q4H PRN 3 Days #9 ml 12/09/17 [Rx] Scopolamine 1.5MG/72Hr Patch [TransDerm Scop] 1 patch TRANSDERM Q72H #3 patch [Rx] Follow up Appointment(s)/Referral(s): Raffaele Tejeda MD [REFERRING] - As Needed (at [facility] ) Patient Instructions/Handouts: Urinary Tract Infection in Men (DC), Pneumonia ( DC), Safe Use of Anticoagulants (DC), Level 3 National Dysphagia Diet (DC) Activity/Diet/Wound Care/Special Instructions: hospice Discharge Disposition: DISCH TO HOSPICE MED FACILTY
[2017-12-09 14:04] VITALS: BP 116/73; PULSE 86; TEMP 97.1
--- NOTE | 2017-12-09 15:38 | PN ---
PROGRESS NOTE DATE OF SERVICE: 12/09/2017. REASON FOR FOLLOWUP: 1. Discharge antibiotic recommendation. 2. Sacral pressure ulcer. INTERVAL HISTORY: The patient is afebrile. He is awake and alert. Unfortunately, the patient has failed his swallow test and family guardian has refused a PEG tube placement. Patient was unable to provide any reliable history. Unable to answer any questions. No nausea, vomiting. Admitting team asked for the discharge antibiotic as well as local wound care. EXAMINATION: Blood pressure 130/60 with a pulse of 89, temperature 97.8. He is 93% on room air. General description is an elderly male lying in bed in no distress. Respiratory system: Unlabored breathing, clear to auscultation anteriorly. Heart S1, S2. Regular rate and rhythm. Abdomen soft. No tenderness. Extremities: No edema of the feet. LABS: Hemoglobin 10.5, white count 38.7 with a BUN of 34, creatinine 1.09. DIAGNOSTIC IMPRESSION AND PLAN: 1. Patient with Proteus mirabilis urinary tract infection with secondary bacteremia and possible aspiration pneumonia. The patient has failed his swallow test and guardian has refused the PEG tube placement as the patient is going hospice, an option would be no antibiotic or short course of oral Augmentin. 2. The patient sacral pressure ulcer. Recommend keeping the area off the pressure dry and no specific cream or lotion. This was explained to the nurse taking care of the patient. MJ / SILVIA: [id number] /
--- NOTE | 2017-12-10 11:41 | CDI ---
Last Revision, April 2017 Documentation Clarification Form Date: 12/10/2017 12:00:00 AM From: Tania Snowden Phone: If you have a question about this query, please contact [facility] [employer] at [phone] between 8am and 5pm. Admit Date: 12/02/2017 12:18:00 AM Patient Name: Sabas Ngo Visit Number: [id number] Discharge Date: 12/09/17 ATTENTION: The Clinical Documentation Specialists (CDI) and [facility] Coding Staff appreciate your assistance in clarifying documentation. Please respond to the clarification below the line at the bottom and electronically sign. The CDI & [facility] Coding staff will review the response and follow-up if needed. Please note: Queries are made part of the Legal Health Record. If you have any questions, please contact the author of this message via ITS. Dr. Jhonny Acuña: A diagnosis of septic shock from UTI (proteus found in urine and blood) with documentation of UTI due to chronic feng. Per documentation in the H and P this patient was admitted with an indwelling Feng catheter /a suprapubic catheter/ urostomy. Urine culture: Proteus Treatment: IV antibiotics In your professional opinion, can you please clarify the etiology of the UTI and if septic shock was due to the UTI. Feng catheter UTI not related to catheter/urostomy Other condition, please specify Unable to determine Not my documentation MTDD
== END 2017-12-09 19:20 | DRG 871 ==
LOC: EC 21:55 → 6ICU 12-02 00:18 → 6SEL 12-04 15:21
PROVIDERS: ADMIT Hospitalist; ATTEND Hospitalist
PROC: 5A1945Z Respiratory Ventilation, 24-96 Consecutive Hours (ICD-10-PCS; principal; 2017-12-02)
PROC: 0BH17EZ Insertion of Endotracheal Airway into Trachea, Via Natural or Artificial Opening (ICD-10-PCS; 2017-12-02)
PROC: 03HY32Z Insertion of Monitoring Device into Upper Artery, Percutaneous Approach (ICD-10-PCS; 2017-12-02)
DX: A41.59 Other Gram-negative sepsis (principal); L89.153 Pressure ulcer of sacral region, stage 3; R65.21 Severe sepsis with septic shock; N17.0 Acute kidney failure with tubular necrosis; J96.01 Acute respiratory failure with hypoxia; G93.41 Metabolic encephalopathy; J69.0 Pneumonitis due to inhalation of food and vomit; N39.0 Urinary tract infection, site not specified; T83.518A Infection and inflammatory reaction due to other urinary catheter, initial encounter; E87.0 Hyperosmolality and hypernatremia; E87.2 Acidosis; I24.9 Acute ischemic heart disease, unspecified; N18.4 Chronic kidney disease, stage 4 (severe); R47.01 Aphasia; J98.11 Atelectasis; D64.9 Anemia, unspecified; E87.8 Other disorders of electrolyte and fluid balance, not elsewhere classified; F03.90 Unspecified dementia, unspecified severity, without behavioral disturbance, psychotic disturbance, mood disturbance, and anxiety; F17.200 Nicotine dependence, unspecified, uncomplicated; H91.90 Unspecified hearing loss, unspecified ear; I48.0 Paroxysmal atrial fibrillation; I49.3 Ventricular premature depolarization; N40.1 Benign prostatic hyperplasia with lower urinary tract symptoms; Y84.6 Urinary catheterization as the cause of abnormal reaction of the patient, or of later complication, without mention of misadventure at the time of the procedure; Z51.5 Encounter for palliative care; Z79.01 Long term (current) use of anticoagulants; Z82.0 Family history of epilepsy and other diseases of the nervous system; Z87.440 Personal history of urinary (tract) infections; R13.10 Dysphagia, unspecified; A49.02 Methicillin resistant Staphylococcus aureus infection, unspecified site; R33.8 Other retention of urine; Z66 Do not resuscitate; R31.9 Hematuria, unspecified; R26.9 Unspecified abnormalities of gait and mobility; Z79.899 Other long term (current) drug therapy
CPT/HCPCS: 31500; 36415; 36600; 43753; 51798; 70450; 71045; 71046; 74230; 80048; 80053; 80202; 80306; 81001; 82140; 82550; 82553; 82805; 83036; 83605; 83735; 83880; 84100; 84132; 84484; 85025; 85027; 85610; 85730; 87040; 87070; 87077; 87086; 87186; 87205; 93005; 93306; 94002; 94003; 94640; 94760; 95816; 96361; 96365; 96366; 96375; 96376; 99291